=== PATIENT | female | born 1950 | race Caucasian/White ===

== ENCOUNTER 2016-07-31 05:31 | Day surgery (SDC) | payer MEDICAID, MEDICARE ==
[~2016-07-31] VITALS: Ht 147.3 cm; Wt 76.7 kg
[~2016-07-31 05:31] MED LIST: ACET-171 PO; AMIT10TA6 PO; ASCO100089 PO; ASCO500C6 PO; BIMA2.5D5 AFFECT_EYE; CAL1TABL2 PO; CALC-243 PO; CHOL100045 PO; CYCL1DRO AFFECT_EYE; DIPH25CA6 PO; DOCU-41 PO; ESTR42.52 VAGINAL; FENT1PAT11 TRANSDERM; FLAX100038 PO; FLUC150T48 PO; FLUO60TA PO; FLUT16SP NS; GLUC-91 PO; GUAI400T57 PO; LACT1CAP65 PO; LANS30CA PO; LOTE5DRO3 AFFECT_EYE; MULT-1018 PO; NAPR220C11 PO; NYST1000 PO; NYST60PO TP; OMEG1CAP25 PO; ONDA4TAB6 PO; OXYC5TAB72 PO; PARS1TAB3 PO; REFRESH OPTIVE OU; TIMO5DRO5 AFFECT_EYE; TIZA4CAP8 PO; Vitamin B12 SL; [UNRECOGNIZED DRUG - OTHER] PO
[2016-07-31] MEDS ORDERED: fentaNYL-PF 50 mCg/mL 2 mL Inj ONE (05:32)
[2016-07-31] MEDS ORDERED: Ondansetron 2 mg/mL 2 mL Inj ONE (05:32)
[2016-07-31] MEDS ORDERED: Propofol 10,000 mCg/mL 20 mL Inj ONE (05:32)
[2016-07-31 05:51] VITALS: BP 141/73; PULSE 83; RESP 14; O2SAT 97
[2016-07-31] MEDS: Lactated Ringer's 1,000 ML IV SCH ×2 (05:51→07:28)
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
[2016-07-31] MEDS ORDERED: Lactated Ringer's 500 ML IV PRN (07:44)
[2016-07-31] MEDS ORDERED: Lactated Ringer's 1,000 ML IV SCH (07:44)
[2016-07-31] MEDS ORDERED: Atropine 0.4 mg/mL Inj IVPUSH PRN (07:45)
[2016-07-31] MEDS ORDERED: EPHEDrine Sulfate 50 mg/mL Inj IVPUSH PRN (07:45)
[2016-07-31] MEDS ORDERED: Phenylephrine 10,000 mCg/mL Inj IVPUSH PRN (07:45)
[2016-07-31] MEDS ORDERED: Ondansetron 2 mg/mL 2 mL Inj IVPUSH PRN (07:45)
[2016-07-31] MEDS ORDERED: Dexamethasone 4 mg/mL Inj IVPUSH PRN (07:45)
[2016-07-31] MEDS ORDERED: HYDROmorphone 1 mg/mL Inj IVPUSH PRN (07:45)
[2016-07-31] MEDS ORDERED: fentaNYL-PF 50 mCg/mL 2 mL Inj IVPUSH PRN (07:45)
[2016-07-31] MEDS ORDERED: hydrALAZINE 20 mg/mL Inj IVPUSH PRN (07:45)
[2016-07-31] MEDS ORDERED: Bupivacaine-MPF 0.25% 30 mL Inj INFILTRATE ONE (07:52)
[2016-07-31] MEDS ORDERED: oxyCODONE-Acetamin 5-325 mg Tablet PO PRN (08:30)
[2016-07-31] MEDS ORDERED: oxyCODONE-Acetamin 5-325 mg Tablet PO ONE (08:31)
--- NOTE | 2016-07-31 08:39 | PCM.ANEP1 ---
Post Anesthesia Phase 1 PACU Phase 1 Assessment Vital Signs Vital Signs Date Time Temp Pulse Resp B/P Pulse Ox O2 Delivery O2 Flow Rate FiO2 07/31/16 05:51 36.6 83 14 141/73 97 Room Air Anesthetic Administered: MAC, Regional Block Level of Alertness: Awake, talking LAIRD's with Equal Strength: Yes Pain: No Nausea or Vomiting: No Oxygen Delivery: Room Air Lungs: Normal Air Movement Kip Cano MD Jul 31, 2016 08:39
[2016-07-31 09:09] VITALS: BP 112/61; PULSE 100; RESP 16; O2SAT 95
--- NOTE | 2016-07-31 12:16 | PCM.ANEP2 ---
Post Anesthesia Evaluation ASA/CMS Post Anesthesia VS in Patient's Normal Range?: Yes Resp Stable; Airway Patent?: Yes CV Function & Hydration Stable: Yes Mental Status Recovered?: Yes Pain control Satisfactory?: Yes N/V Control Satisfactory?: Yes Kip Cano MD Jul 31, 2016 12:16
--- NOTE | 2016-08-02 00:06 | OP ---
[address] [address] OPERATIVE REPORT PATIENT: RICK VAZQUEZ : 1950 MR#: [id number] ADMIT: 07/31/2016 JOB ID: [id number] DATE OF SURGERY: 07/31/2016 PREOPERATIVE DIAGNOSIS(ES): 1. Right middle recurrent trigger finger. 2. Right middle finger flexor ganglion cyst. POSTOPERATIVE DIAGNOSIS(ES): 1. Right middle recurrent trigger finger. 2. Right middle finger flexor ganglion cyst. PROCEDURE: 1. Revision, right middle trigger release. 2. Excision of right middle finger flexor ganglion cyst. SURGEON: Julio Pizarro MD SEASONAL RECRUITER: None. ANESTHESIA: Via block with sedation. COMPLICATIONS: None apparent. ESTIMATED BLOOD LOSS: Minimal. SPECIMEN: Right middle finger ganglion cyst to Pathology. INDICATIONS FOR PROCEDURE: This is a 66-year-old, female patient with a remote history of right middle trigger finger and ring finger trigger finger status post trigger release. The patient has had a 2-3 month history of right middle finger pain and clicking. Ultrasound of the area demonstrated a ganglion cyst as well. At this point, a right middle revision trigger release with a ganglion cyst excision is indicated. PROCEDURES AND FINDINGS: The patient was identified in the preoperative area. Surgical site was marked. The patient was then taken back to the operating room and placed supine on the operating table. Appropriate time-outs were taken. A Laura block was then carried out by Anesthesia without any difficulty. The patient was then prepped and draped in the usual sterile manner. Her previous trigger release incision was then opened. I opened approximately two-thirds of the incision over the middle finger and part of the third web space. This was done with a 15-blade just through the skin. I then performed blunt dissection with a pair of tenotomy scissors to deepen the incision down to the flexor apparatus. The soft tissue was then retracted ulnarly and radially out of the way. It was noted that patient has circumferential scarring in this area around the flexor tendon. Examination proximally reveals a cystic structure above the scar. At this point, I used a #15 blade and incised a portion of the scar down to the underlying flexor apparatus. Using this incision, I was able was able to follow the flexor tendon and open up the scar tissue superficial to the tendon from a distal to proximal manner. At the area of the ganglion cyst, incision was carried around the ganglion cyst allowing the cyst to be passed off to Pathology as a specimen. I opened up the scar tissue into the mid palm. I then turned my attention distally. Again, the scar tissue was opened into the proximal third of the proximal phalanx. Hemostasis was obtained with electrocautery after tourniquet had been released. At this point, I asked the patient to flex her fingers, and patient reports smooth tendon gliding without any clicking. The incision was then reapproximated using several 4-0 nylon horizontal mattress sutures. The patient tolerated the procedure well. Needle count, sponge count, and instrument counts were correct at the end of the procedure. The patient was transported to recovery in stable condition. QUAN
--- NOTE | 2016-08-02 16:30 | PATH ---
SURGICAL PATHOLOGY Attending Physician:Julio Pizarro CASE STATUS: Signed Out PATIENT NAME: RICK VAZQUEZ PID: [id number] : 1950 DATE COLLECTED:07/31/2016 15:22 SPECIMEN: Ganglion Cyst CLINICAL HISTORY: 1. RIGHT MIDDLE FINGER GANGLION FINAL DIAGNOSIS: 1.RIGHT MIDDLE FINGER GANGLION: GANGLION CYST. ICD10 CODE M67.4 GROSS DESCRIPTION: The specimen is received in formalin, labeled with the patient's name, sublabeled as right middle finger ganglion is and consists of a fragment of erickson-white semitranslucent fibrous tissue (1.0 x 0.5 x 0.4 cm). Section code: (A) tissue, bisected. Specimen entirely submitted. 07/31/16 JM MICRO DESCRIPTION: See diagnosis. ICD-9 CODES: CPT CODES: 1: 10180 Electronically Signed Out Becki Spence MD [facility] [address], [place] [address] Technical component performed at [facility], [facility] [address], [place], [address]
== END 2016-07-31 23:59 | disposition home or self-care (01) ==
LOC: SAS 05:31
PROVIDERS: ATTEND Plastic Surgery
DX: M65.331 Trigger finger, right middle finger (principal); M67.441 Ganglion, right hand; R13.10 Dysphagia, unspecified; I10 Essential (primary) hypertension; J45.909 Unspecified asthma, uncomplicated; R51 Headache; K21.9 Gastro-esophageal reflux disease without esophagitis; R12 Heartburn; K44.9 Diaphragmatic hernia without obstruction or gangrene; M79.7 Fibromyalgia; Z98.84 Bariatric surgery status; Z79.82 Long term (current) use of aspirin; Z79.899 Other long term (current) drug therapy

== ENCOUNTER 2016-08-23 05:47 | Emergency (ER) | payer MEDICAID, MEDICARE ==
[2016-08-23 05:51] VITALS: BP 146/84; PULSE 99; RESP 20; O2SAT 99
--- NOTE | 2016-08-23 06:15 | ED.REPORT ---
HPI-Chest Pain 40 and Over Date of Service August 23, 2016 ED Provider: Edmundo Manning MD A 66 year old female with a medical history including hypertension, GERD, fibromyalgia, mild IBS, and nephrolithiasis presents to the ED reporting left flank pain onset 0530 this morning, waking her up. Associated symptoms include left-sided abdominal pain, nausea, and chills. The patient denies fever, vomiting, or other symptoms. She saw her PCP yesterday and was placed on Nitrofurantoin for a UTI. Several months ago the patient was diagnosed with right-sided kidney stones, which she has been passing intermittently. Her last meal was 2200 last night. Nursing Notes Stated Complaint: ABDOMINAL PAIN Chief Complaint: Female Abdominal Pain Nursing Notes Reviewed: Yes Allergies: Coded Allergies: TAPE (Verified Allergy, Severe, blisters (PAPER TAPE OK), 07/25/16) cisapride (Verified Allergy, Severe, SEVERE DIARRHEA, 07/25/16) Macrolide Antibiotics (Verified Allergy, Unknown, UNKNOWN, 07/25/16) brimonidine (Unverified Allergy, Unknown, 07/30/16) ENTERED FROM UNCODED ALLERGIES chlorhexidine (Unverified Allergy, Unknown, 07/30/16) ENTERED FROM UNCODED ALLERGIES meperidine (Verified Allergy, Unknown, UNKNOWN, 07/25/16) miconazole (Unverified Allergy, Unknown, 07/30/16) ENTERED FROM UNCODED ALLERGIES polymyxin B (Verified Allergy, Unknown, UNKNOWN, 07/25/16) prochlorperazine (Verified Allergy, Unknown, UNKNOWN (PHENOTHIAZINES) , 07/25/16) erythromycin ethylsuccinate (Verified Adverse Reaction, Severe, cramping diarrhea, 07/25/16) gabapentin (Verified Adverse Reaction, Severe, ANXIETY/DEPRESSION, 07/25/16) metoclopramide (Verified Adverse Reaction, Severe, SEVERE TWITCHING, ) pregabalin (Verified Adverse Reaction, Severe, PERIPHERAL EDEMA, 07/25/16) propranolol (Verified Adverse Reaction, Severe, DIARRHEA, 07/25/16) Uncoded Allergies: CHLOROPREP (Allergy, Severe, RED WELTS, 07/26/13) bee stings (Allergy, Unknown, UNKNOWN, 07/26/13) MICONAZOLE (Adverse Reaction, Severe, SWELLING/TOPICAL RASH, 07/26/13) BROMINDIONE (Adverse Reaction, Unknown, FOUND IN COMBIGAN EYE GTTS- REACTION UNKNOWN, 07/26/13) Scheduled ([Refresh Optive]) 0.01 OZ OU 2-6X DAILY ([Vitamin B12]) 5,000 MG SL DAILY ([Green Source Vit/Min]) 1 TAB PO DAILY Amitriptyline (Amitriptyline) 10 Mg Tablet 30 MG PO HS Ascorbic Acid (Vitamin C) 500 Mg Capsule.er 500 MG PO DAILY W/ LEI HIPS Ascorbic Acid (Vitamin C) 1,000 Mg Tab.chew 1,000 MG PO BID W/ BIOFLAVONOIDS Bimatoprost (Lumigan) 45 Drop/2.5 Ml Ophsoln 1 DROP AFFECT_EYE HS [place] Cit/Mag/D3/Zn/Deputy Clerk/Sunil/Bor (Citracal-Vit D + Magnesium Tab) 1 Each Tablet 6 EACH PO DAILY Calcium Carbonate/Vitamin D3 (Calcium 600 + Vit D Tablet) 1 Each Tablet 1 EACH PO DAILY Cholecalciferol (Vitamin D3) (Vitamin D) 1,000 Unit Capsule 5,000 UNIT PO DAILY 5000IU DAILY IN WINTER; 2000IU DAILY IN SUMMER Ciprofloxacin (Ciprofloxacin) 500 Mg Tablet 500 MG PO BID Cyclosporine (Restasis) 1 Each Droperette 1 EACH AFFECT_EYE BID O.O5% Estradiol (Estrace) 42.5 Gm Cream.appl 1 G VAGINAL 2X/WEEK Fentanyl 100 mcg/hr Patch (Fentanyl 100 mcg/hr Patch) 1 Each Patch.td72 1 PATCH TRANSDERM 48H 37.5MCG/H Flaxseed Oil ([place]-3 Flaxseed Oil) 1,000 Mg Capsule 2,000 MG PO DAILY Fluconazole (Diflucan) 150 Mg Tablet 150 MG PO ONCE Fluoxetine (Fluoxetine) 60 Mg Tablet 60 MG PO DAILY Fluticasone Propionate (Fluticasone Propionate Nasal) 16 Gm Dinuba.susp 2 SPRAY NS QAM Gluc/Pablo-MSM#1/Vit C/Sunil/Bor (Rjajxpc-Lmcsb-ALP Complex Cplt) 1 Each Tablet 2 EACH PO DAILY Guaifenesin (Guaifenesin) 400 Mg Tablet 400 MG PO Q 4HRS PRN Lactobacillus Acidophilus (Probiotic) 1 Each Capsule 2 EACH PO DAILY Lansoprazole (Lansoprazole) 30 Mg Capsule.dr 30 MG PO BID Multivitamin (Multi Vitamin Daily) 1 Each Tablet 1 EACH PO DAILY Naproxen Sodium (Aleve) 220 Mg Capsule 220 MG PO BID Nystatin (Nystop) 60 Gm Powder 60 GM TP PRN [place]-3 Fatty Acids/Fish Oil ([place] 3 Fish Oil Softgel) 1 Each Capsule.dr 1 EACH PO DAILY Parsley/Garlic (Garlic & Parsley Tablet) 1 Each Tablet 1 EACH PO BID Tamsulosin (Flomax) 0.4 Mg Capsule 0.4 MG PO DAILY Timolol Maleate (Timolol Maleate) 5 Ml Drops 1 DROP AFFECT_EYE DAILY Tizanidine (Tizanidine) 4 Mg Capsule 1-8 MG PO HS Scheduled PRN Acetaminophen (Acetaminophen) 500 Mg Tablet 1,000 MG PO Q6H PRN PRN For Pain Docusate Sodium (Colace) 100 Mg Capsule 100-200 MG PO BID PRN PRN For Constipation Loteprednol Etabonate (Lotemax) 5 Ml Drops.susp 1 GTT AFFECT_EYE BID PRN PRN POSTOP Nystatin (Nystatin) 100,000 Unit/1 Ml Oral.susp 100,000 UNIT PO PRN PRN PRN YEAST Ondansetron (Zofran) 4 Mg Tablet 4-8 MG PO Q8H PRN PRN For Nausea diphenhydrAMINE HCl (Benadryl) 25 Mg Capsule 25-50 MG PO Q4 PRN PRN For Itching oxyCODONE (oxyCODONE) 5 Mg Tablet 5-10 MG PO Q4H PRN PRN For Pain General Time Seen by MD: 06:09 Chief Complaint Other (Left Flank Pain) Hx Obtained From: Patient Arrived By: Walk-in Sudden in Onset?: Yes Onset Occurred: 1 - 4 hours ago Symptom Duration: Since onset Location: : Back (Left Flank) Quality: Painful Severity: Current: Moderate Severity: Maximum: Moderate Pertinent Negative: Relieved by nothing Context Related History: Reports: GERD, Hypertension Recent Healthcare: Recent doctor visit Similar Sx Previous: Yes Past Medical History Past Medical History Cataracts s/p bilateral extraction and macular "hole" repair Glaucoma s/p corneal transplant Hypertension Asthma TIA GERD Hiatal Hernia s/p Leif fundoplication Mild IBS Nephrolithiasis s/p lithotripsy UTI Fibromyalgia Anxiety Depression Reports: Asthma, Hypertension Reports: Depression Past Surgical History Cervical fusion Fissures Appendectomy Gastric bypass surgery Right middle trigger release Excision of right middle finger flexor ganglion cyst Nasal surgery Tonsillectomy Cholecystectomy Leif fundoplication Bilateral cataract extraction and macular "hole" repair Corneal transplant Smoking History Never Smoker Social History Other Social History: Good social support Ambulatory Status Walker Review of Systems Constitutional: Reports: Chills, Denies: Fever Respiratory: Denies: Non-productive cough, Shortness of breath GI: Reports: Abdominal pain (Left-sided), Nausea, Denies: Diarrhea, Vomiting Complete sys rev & neg: except as marked. Female: Reports: Flank pain (Left) Physical Exam Initial Vital Signs Vital Signs (First) Date Time Temp Pulse Resp B/P Pulse Ox O2 Delivery O2 Flow Rate FiO2 08/23/16 05:51 36.8 99 20 146/84 99 Room Air Initial VS: Reviewed Head / Eyes: Atraumatic, Normocephalic ENT: Conjunctiva normal, No scleral icterus Skin: Warm, Dry, No cyanosis Neurologic: Alert, Oriented, Nonfocal Psychiatric: Mood/affect normal, Behavior normal, Normal thought content General/Constitutional: Awake, Alert Respiratory / Chest: Breath sounds NL, Breath sounds = bilat, No respiratory distress Cardiovascular: Heart rate NL, Regular rhythm, Heart sounds NL, No murmurs Abdomen: Soft Tenderness/Guarding/Rebound: Positive: Tender LLQ..., Tender LUQ... Back: Full range of motion Flank / Spine / Paraspinal: Positive: Flank tender L Interpretation & Diagnostics URINE DIPSTICK: 1.015 sp gravity 5 pH Trace Leukocyte Esterase Trace Protein Normal Glucose Normal Urobilinogen ~ 250 Quinten/ml Occult Blood Otherwise Negative CT KUB: IMPRESSION: 1. Bilateral nephrolithiasis. Mildly obstructing 6 mm calculus at the left ureteropelvic junction. 2. Status post remote gastric bypass surgery, cholecystectomy and hysterectomy. 3. Hepatic cystic changes again noted. Dictated by: Walt Monique M.D. on 08/23/2016 at 9:09 Lab Results Interpretation Result Diagram: 08/23/16 0607 08/23/16 0607 Test 08/23/16 06:07 08/23/16 06:33 White Blood Count 5.4th/mm3 (3.8-10.1) Red Blood Count 4.29mil/mm3 (3.90-5.20) Hemoglobin 12.5g/dL (12.0-15.6) Hematocrit 38.5% (35.0-46.0) Mean Corpuscular Volume 89.7fL (81-100) Mean Corpuscular Hemoglobin 29.1pg (27.0-35.0) Mean Corpuscular Hemoglobin Concent 32.5% (32.0-37.0) Red Cell Distribution Width 13.6% (12.3-15.4) Platelet Count 326bil/L (150-400) Neutrophils (%) (Auto) 45.1% (40-74) Lymphocytes (%) (Auto) 34.6% (14-46) Monocytes (%) (Auto) 9.5% (4-12) Eosinophils (%) (Auto) 9.5% (0-5) Basophils (%) (Auto) 1.1% (0-3) Sodium Level 140mEq/L (134-144) Potassium Level 3.9mEq/L (3.5-5.2) Chloride Level 102mEq/L (97-108) Carbon Dioxide Level 26mmol/L (18-29) Blood Urea Nitrogen 26mg/dL (8-27) Creatinine 0.58mg/dL (0.57-1.00) Estimat Glomerular Filtration Rate 149mL/min (>59) Glucose Level 102mg/dL (60-99) Lactic Acid Level 1.4mmol/L (0.4-2.0) Calcium Level 9.1mg/dL (8.5-10.1) Magnesium Level 2.4mg/dL (1.6-2.6) Total Bilirubin 0.2mg/dL (0.0-1.2) Aspartate Amino Transf (AST/SGOT) 41U/L (0-50) Alanine Aminotransferase (ALT/SGPT) 38U/L (0-32) Alkaline Phosphatase 99U/L (25-165) Total Protein 7.5g/dL (6.4-8.4) Albumin 4.3g/dL (3.4-5.0) Lipase 23U/L (13-60) Urine Color Yellow (YELLOW) Urine Appearance Slightly cloudy Urine pH 6.0 (5.0-8.0) Urine Specific [place] 1.019 (1.003-1.035) Urine Protein Negativemg/dL (NEG,TRACE) Urine Glucose (UA) Negativemg/dL (NEGATIVE) Urine Ketones Negativemg/dL (NEGATIVE) Urine Occult Blood Moderate (NEGATIVE) Urine Nitrite Negative (NEGATIVE) Urine Bilirubin Negative (NEGATIVE) Urine Urobilinogen Normalmg/dL (NORMAL) Urine Leukocyte Esterase Trace (NEGATIVE) Urine RBC 11-50/hpf (0-2) Urine WBC 6-10/hpf (0-5) Urine Epithelial Cells Few/hpf (NONE-MOD) Urine Crystals None seen (NONE SEEN) Urine Bacteria Few/hpf (NONE-FEW) Urine Hyaline Casts None/lpf (NONE) Urine Granular Casts None seen (NONE SEEN) Urine Waxy Casts None seen (NONE SEEN) Urine Red Blood Cell Casts None seen (NONE SEEN) Urine White Blood Cell Casts None seen (NONE SEEN) Urine Mucus Present (None Seen) Urine Trichomonas None seen (NONE SEEN) Urine Yeast None (NONE SEEN) Urinalysis Comment Transitional epi Urine Culture Reflexed Indicated Re-Eval/Medical Decision Med Decision/Clinical Course 66-year-old female history kidney stones presenting with left flank pain. She was recently started on Macrobid by her primary doctor. CT shows 6 mm mildly obstructing stone left UPJ. Urine suggests UTI. Pain was controlled. I discussed with urology as above recommends discharge home with ciprofloxacin 14 days and follow-up with urology next week. Return precautions if any new or worsening abdominal pain, nausea vomiting, fevers chills, any other new or worsening symptoms. Source of Hx: Old records Time of Eval: 10:39 Patient Status: Condition improved Re-Evaluation/Progress Note: Discussed with patient CT and lab results, diagnosis, and plan for discharge. Follow-up and return to the ER instructions given. Patient agrees with plan for care and all questions were addressed. Consultation : Referral / Consult Name: Bhavin Sanabria MD Consulted With: Urology Call Returned at: 10:19 Night Warehouse Selector: Agrees with eval, Agrees with plan Note: Recommends discharge on Cipro with close outpatient follow-up. Counseled Regarding: Diagnosis, Lab results, Need for follow-up, When/why to return to ED Discharge & Departure Primary Impression: UTI (urinary tract infection) Urinary tract infection type: acute cystitis Hematuria presence: without hematuria Qualified Code: N30.00 - Acute cystitis without hematuria Additional Impression: Nephrolithiasis Disposition: Home Discharge Condition All VS Reviewed: Yes Condition: Improved Patient Instructions: Kidney Stones (GEN), Urinary Tract Infection in Women ( GEN) Additional Instructions: Thank you for entrusting us with your care. Take the Cipro as prescribed, starting tomorrow. Also take Flomax as prescribed. Call your primary care provider on Friday for a follow-up appointment. Also call your urologist today for a follow-up appointment next week. Return to the ER with any new or worsening symptoms including worsening pain, fevers, nausea, and vomiting. Referrals: Kei Mcfarlane MD (PCP) Bhavin Sanabria MD Attestation Portions of this note were transcribed by Melissa Goncalves. I, Dr. Manning, personally performed the history, physical exam, and medical decision-making; I reviewed and confirmed the accuracy of the information in the transcribed note. Signed by: Diego Abreu, 08/23/2016, 11:55 copies to: Kei Mcfarlane MD; Mae Hyatt MD; Bhavin Sanabria MD, Ben M MD August 23, 2016 06:15 EMLISSA GONCALVES August 23, 2016 06:50
[2016-08-23] MEDS ORDERED: Ondansetron 2 mg/mL 2 mL Inj ONE (06:16)
[2016-08-23 06:19] LABS: BASOPHILS % (AUTO) 1.1 % (0-3); EOSINOPHILS % (AUTO) 9.5 % (0-5); MONOCYTES % (AUTO) 9.5 % (4-12); Mean Corpuscular Hemoglobin 29.1 pg (27.0-35.0); Mean Corpuscular Volume 89.7 fL (81-100); NEUTROPHILS % (AUTO) 45.1 % (40-74); Platelet Count 326 bil/L (150-400)
[2016-08-23 06:39] LABS: Magnesium 2.4 mg/dL (1.6-2.6)
[2016-08-23] MEDS ORDERED: 0.9% Sodium Chloride 1,000 ML IV ONE (06:50)
[2016-08-23 07:00] LABS: APPEARANCE,URINE SLIGHTLY CLOUDY (CLEAR,HAZY); COLOR,URINE YELLOW (YELLOW); OCCULT BLOOD,URINE MODERATE (NEGATIVE); UROBILINOGEN,URINE NORMAL (NORMAL)
[2016-08-23] MEDS: HYDROmorphone 0.5 mg/0.5 mL iSecure Syringe IVPUSH PRN ×4 (07:03→09:25)
[2016-08-23] MEDS ORDERED: cefTRIAXone Inj 1,000 MG in Dextrose 5% Minibag Plus 50 ML IV ONE (08:05)
--- NOTE | 2016-08-23 09:22 | DRSVH ---
PROCEDURE: CT KUB ([id number]) INDICATIONS: L flank pain, LLQ pain TECHNIQUE: Noncontrast 5 mm thick sections acquired from the diaphragms to the symphysis. 5 mm thick coronal an d sagittal reformats were then performed. For radiation dose reduction, the following was used: aut omated exposure control, adjustment of mA and/or kV according to patient size. COMPARISON: CT abdomen and pelvis 06/17/2016 FINDINGS: Preliminary report by software support representative radiology Image quality: Excellent. Lung bases: Lung bases are clear. Heart size is normal. Urinary system: Both kidneys are normal in size. Punctate calcification in the lower pole of the rig ht kidney is unchanged. A punctate calcification is present in the upper pole of the left kidney, rosibel ge 24. Slightly larger calcifications are present in the left lower pole collecting system and there is a 6 mm calculus in the left ureteropelvic junction, image 33, attenuation 647. There is mild left hydronephrosis without perinephric fat stranding. Both ureters appear non-dilated throughout their e xpected courses. Bladder wall thickness is normal; no calcified bladder stones. Other solid organs: Liver and spleen are normal in size. Scattered hepatic cysts and dilated intrahe patic and extrahepatic bile ducts again noted. Gallbladder is surgically absent. Pancreas is normal in contours. No adrenal nodules. Peritoneum and bowel: Postoperative changes of partial gastrectomy and bypass surgery Unenhanced bow el loops demonstrate normal wall thickness and caliber. No free fluid or air. Nodes and vessels: No retroperitoneal or mesenteric adenopathy by size criteria. Aorta and inferior vena cava are normal in caliber. Abdominal wall: No ventral hernias. Pelvis: No free pelvic fluid. No inguinal hernias or adenopathy. Uterus is surgically absent. Ovari es are nonvisualized. Bones: No suspicious bony lesions. No vertebral body compression fractures. IMPRESSION: 1. Bilateral nephrolithiasis. Mildly obstructing 6 mm calculus at the left ureteropelvic junction. 2. Status post remote gastric bypass surgery, cholecystectomy and hysterectomy. 3. Hepatic cystic changes again noted. Dictated by: Walt Monique M.D. on 08/23/2016 at 9:09 Approved by: Walt Monique M.D. on 08/23/2016 at 9:20
[2016-08-23 09:30] VITALS: BP 148/73; PULSE 92; RESP 17; O2SAT 92
[2016-08-23] MEDS ORDERED: CIPR-198 PO (10:32)
[2016-08-23] MEDS ORDERED: TAMS0.4C98 PO (10:49)
[2016-08-23 11:17] VITALS: BP 131/70; PULSE 90; RESP 15; O2SAT 95
[2016-08-23 11:18] VITALS: BP 131/70; PULSE 90; RESP 15; O2SAT 95
== END 2016-08-23 11:20 | disposition home or self-care (01) ==
LOC: SED 05:47
DX: N30.00 Acute cystitis without hematuria (principal); N20.0 Calculus of kidney; I10 Essential (primary) hypertension; J45.909 Unspecified asthma, uncomplicated; K21.9 Gastro-esophageal reflux disease without esophagitis; Z88.8 Allergy status to other drugs, medicaments and biological substances; Z86.73 Personal history of transient ischemic attack (TIA), and cerebral infarction without residual deficits
CPT/HCPCS: 36415; 74176; 80053; 81000; 83605; 83690; 83735; 85025; 87086; 96361; 96374; 96375; 99285; J0696; J1170; J1885; J2405; J7030

== ENCOUNTER 2016-11-08 17:39 | Inpatient (IN) | payer MEDICARE, MEDICAID ==
[~2016-11-08] VITALS: Ht 147.3 cm; Wt 77.5 kg
[~2016-11-08 17:39] MED LIST changes: -BIMA2.5D5 AFFECT_EYE; +BIMA2.5D5 RIGHT_EYE; +CIPR-198 PO; -CYCL1DRO AFFECT_EYE; +CYCL1DRO BOTH_EYES; -LOTE5DRO3 AFFECT_EYE; +LOTE5DRO3 RIGHT_EYE; +TAMS0.4C98 PO; -TIMO5DRO5 AFFECT_EYE; +TIMO5DRO5 RIGHT_EYE
[2016-11-08 17:52] VITALS: BP 128/70; PULSE 85; RESP 18; O2SAT 95
[2016-11-08] MEDS ORDERED: 0.9% Sodium Chloride 1,000 ML IV ONE ×2 (17:56→20:19)
--- NOTE | 2016-11-08 17:56 | ED.REPORT ---
HPI-General Illness Date of Service Nov 08, 2016 ED Provider: Dr. Humble Sim MD A 66 year old female with a history of hypertension, GERD, fibromyalgia, mild IBS, and previous nephrolithiasis requiring surgery presents to the ED complaining of lower, "grabbing" abdominal pain that began at 1030 this morning. The pain radiates from her left flank to the lower section of her abdomen into her groin. Associated symptoms include recent urinary retention, hematuria, dizziness, near- syncope and nausea. Her current pain feels similar to her previous kidney stones. She rates her current pain as an 8/10 and she rates her worst pain as a 10/10. The pain is exacerbated by sitting up. Patient was seen in the ED on 08/2016 for a UTI with similar symptoms. Patient took Tylenol and Pyridium with no relief. She denies any recent weight loss, fever, chills, headache, vomiting, chest pain, SOB, unilateral numbness/weakness, or hematochezia. Nursing Notes Stated Complaint: POSS UTI Chief Complaint: Female Abdominal Pain Nursing Notes Reviewed: Yes Allergies: Coded Allergies: TAPE (Verified Allergy, Severe, blisters (PAPER TAPE OK), 11/08/16) cisapride (Verified Allergy, Severe, SEVERE DIARRHEA, 11/08/16) Macrolide Antibiotics (Verified Allergy, Unknown, UNKNOWN, 11/08/16) brimonidine (Unverified Allergy, Unknown, 11/08/16) ENTERED FROM UNCODED ALLERGIES chlorhexidine (Unverified Allergy, Unknown, 11/08/16) ENTERED FROM UNCODED ALLERGIES meperidine (Verified Allergy, Unknown, UNKNOWN, 11/08/16) miconazole (Unverified Allergy, Unknown, 11/08/16) ENTERED FROM UNCODED ALLERGIES polymyxin B (Verified Allergy, Unknown, UNKNOWN, 11/08/16) prochlorperazine (Verified Allergy, Unknown, UNKNOWN (PHENOTHIAZINES) , 11/08/16) erythromycin ethylsuccinate (Verified Adverse Reaction, Severe, cramping diarrhea, 11/08/16) gabapentin (Verified Adverse Reaction, Severe, ANXIETY/DEPRESSION, 11/08/16 ) metoclopramide (Verified Adverse Reaction, Severe, SEVERE TWITCHING, ) pregabalin (Verified Adverse Reaction, Severe, PERIPHERAL EDEMA, 11/08/16) propranolol (Verified Adverse Reaction, Severe, DIARRHEA, 11/08/16) Uncoded Allergies: CHLOROPREP (Allergy, Severe, RED WELTS, 07/26/13) bee stings (Allergy, Unknown, UNKNOWN, 07/26/13) MICONAZOLE (Adverse Reaction, Severe, SWELLING/TOPICAL RASH, 07/26/13) BROMINDIONE (Adverse Reaction, Unknown, FOUND IN COMBIGAN EYE GTTS- REACTION UNKNOWN, 07/26/13) Scheduled Amitriptyline (Amitriptyline) 10 Mg Tablet 30 MG PO HS Aspirin (Aspirin) 325 Mg Tablet 325 MG PO HS Bimatoprost (Lumigan) 45 Drop/2.5 Ml Ophsoln 1 DROP RIGHT_EYE HS [place] Cit/Mag/D3/Zn/[employer]air Builder/Sunil/Bor (Citracal-Vit D + Magnesium Tab) 1 Each Tablet 1 EACH PO BID Cholecalciferol (Vitamin D3) (Vitamin D) 1,000 Unit Capsule 5,000 UNIT PO DAILY 5000IU DAILY IN WINTER; 2000IU DAILY IN SUMMER Cyanocobalamin/Cobamamide (Vitamin B-12 5,000 Mcg Tab Sl) 5,000 Mcg-100 Mcg Tab.subl 1 EACH SL DAILY Cyclosporine (Restasis) 1 Each Droperette 1 DROP BOTH_EYES BID O.O5% Docusate Sodium (Colace) 100 Mg Capsule 100-200 MG PO BID Fentanyl 100 mcg/hr Patch (Fentanyl 100 mcg/hr Patch) 1 Each Patch.td72 1 PATCH TRANSDERM 48H 37.5MCG/H Flaxseed Oil ([place]-3 Flaxseed Oil) 1,000 Mg Capsule 1,000 MG PO BID Fluoxetine (Fluoxetine) 60 Mg Tablet 60 MG PO DAILY Fluticasone Propionate (Fluticasone Propionate Nasal) 16 Gm [place].susp 2 SPRAY NS QAM Gluc/Pablo-MSM#1/Vit C/Sunil/Bor (Salfdhc-Ngrdu-KLJ Complex Cplt) 1 Each Tablet 1 EACH PO BID Lactobacillus Acidophilus (Probiotic) 1 Each Capsule 1 EACH PO DAILY Lansoprazole (Lansoprazole) 30 Mg Capsule. 30 MG PO BID Multivitamin (Multi Vitamin Daily) 1 Each Tablet 1 EACH PO DAILY Naproxen Sodium (Aleve) 220 Mg Capsule 220 MG PO BID [place]-3 Fatty Acids/Fish Oil ([place] 3 Fish Oil Softgel) 1 Each Capsule.dr 1 EACH PO DAILY Parsley/Garlic (Garlic & Parsley Tablet) 1 Each Tablet 1 EACH PO BID Polyvinyl Alcohol/Povidone/Pf (Refresh Classic Eye Drops) 1 Each Droperette 1 EACH BOTH_EYES BID Timolol Maleate (Timolol Maleate) 5 Ml Drops 1 DROP RIGHT_EYE QAM Tizanidine (Tizanidine) 4 Mg Capsule 4-8 MG PO HS Scheduled PRN Acetaminophen (Acetaminophen) 500 Mg Tablet 1,000 MG PO Q6H PRN PRN For Pain Guaifenesin (Guaifenesin) 400 Mg Tablet 400 MG PO Q4H PRN PRN For Cough Loteprednol Etabonate (Lotemax) 5 Ml Drops.susp 1 GTT RIGHT_EYE BID PRN PRN POSTOP Ondansetron (Zofran) 4 Mg Tablet 4-8 MG PO Q8H PRN PRN For Nausea diphenhydrAMINE HCl (Benadryl) 25 Mg Capsule 25-50 MG PO Q4 PRN PRN For Itching oxyCODONE (oxyCODONE) 5 Mg Tablet 5-10 MG PO Q4H PRN PRN For Pain General Time Seen by MD: 17:55 Chief Complaint Abdominal pain (Lower) Hx Obtained From: Patient Arrived By: Walk-in Sudden in Onset?: No Onset Occurred: 9 - 12 hours ago Symptom Duration: Since onset Location: : Abdomen Quality: Burning, Painful Radiation: : Abdomen Severity: Current: Pain level 8 out of 10 Severity: Maximum: Pain level 10 out of 10 Associated with: Reports: Abdominal pain, Nausea Pertinent Negative: Pt denies other symptoms Recent Healthcare: No recent hospitalization, Recent doctor visit Past Medical History Past Medical History Cataracts s/p bilateral extraction and macular "hole" repair Glaucoma s/p corneal transplant Hypertension Asthma TIA GERD Hiatal Hernia s/p Leif fundoplication Mild IBS Nephrolithiasis s/p lithotripsy UTI Fibromyalgia Anxiety Depression Reports: Asthma, Hypertension Reports: Depression Past Surgical History Cervical fusion Fissures Appendectomy Gastric bypass surgery Right middle trigger release Excision of right middle finger flexor ganglion cyst Nasal surgery Tonsillectomy Cholecystectomy Leif fundoplication Bilateral cataract extraction and macular "hole" repair Corneal transplant Family History Reports: Cancer (Pancreatic) Smoking History Never Smoker Social History Other Social History: Good social support Ambulatory Status Walker Review of Systems Full Review of Systems Constitutional: Denies: Chills, Fever, Recent wt loss Respiratory: Denies: Shortness of breath Cardiovascular: Denies: Chest pain GI: Reports: Abdominal pain, Nausea, Denies: Hematochezia Female: Reports: Flank pain (Left), Hematuria, Urination decreased Neurologic: Denies: Headache, Numbness, Syncope, Weakness Complete sys rev & neg: except as marked. Physical Exam Nursing note and vitals reviewed. Constitutional: Well-developed, well-nourished. Not diaphoretic. Head: Normocephalic and atraumatic. Mouth/Throat: Oropharynx is clear and moist. No oropharyngeal exudate. Eyes: EOM are normal. Pupils are equal, round, and reactive to light. Neck: Supple, no tracheal deviation. Cardiovascular: Normal rate, regular rhythm. Equal and intact distal pulses throughout. Pulmonary/Chest: Effort normal and breath sounds normal. No respiratory distress. Abdominal: Soft. Marked left and right lower abdominal tenderness with rebound and guarding. Marked left flank tenderness. No distension. Bowel sounds present. Musculoskeletal: Range of motion grossly intact, moving all extremities. No edema or tenderness appreciated. Neurological: AOx3. Grossly nonfocal exam. Strength and sensation intact and equal to bilateral upper and lower extremities. Skin: Warm and dry, no rashes or pallor appreciated. Psychiatric: Appropriate mood and affect. Behavior appears normal. Vital Signs Vital Signs Date Time Temp Pulse Resp B/P Pulse Ox O2 Delivery O2 Flow Rate FiO2 11/08/16 21:24 36.8 94 15 150/84 94 Room Air 11/08/16 17:52 36.6 85 18 128/70 95 Room Air Interpretation & Diagnostics Lab Results Interpretation Result Diagram: 11/08/16182911/08/161829 Test 11/08/16 18:30 11/08/16 19:09 White Blood Count 6.7th/mm3 (3.8-10.1) Red Blood Count 3.71mil/mm3 (3.90-5.20) Hemoglobin 10.8g/dL (12.0-15.6) Hematocrit 33.5% (35.0-46.0) Mean Corpuscular Volume 90.3fL (81-100) Mean Corpuscular Hemoglobin 29.1pg (27.0-35.0) Mean Corpuscular Hemoglobin Concent 32.2% (32.0-37.0) Red Cell Distribution Width 13.7% (12.3-15.4) Platelet Count 290bil/L (150-400) Neutrophils (%) (Auto) 55.8% (40-74) Lymphocytes (%) (Auto) 27.4% (14-46) Monocytes (%) (Auto) 8.5% (4-12) Eosinophils (%) (Auto) 7.6% (0-5) Basophils (%) (Auto) 0.6% (0-3) Prothrombin Time 9.7sec (8.1-12.5) Prothromb Time International Ratio 0.91ratio Sodium Level 138mEq/L (134-144) Potassium Level 4.2mEq/L (3.5-5.2) Chloride Level 104mEq/L (97-108) Carbon Dioxide Level 24mmol/L (18-29) Blood Urea Nitrogen 26mg/dL (8-27) Creatinine 0.73mg/dL (0.57-1.00) Estimat Glomerular Filtration Rate 114mL/min (>59) Glucose Level 93mg/dL (60-99) Lactic Acid Level 0.6mmol/L (0.4-2.0) Calcium Level 8.6mg/dL (8.5-10.1) Magnesium Level 2.5mg/dL (1.6-2.6) Total Bilirubin 0.2mg/dL (0.0-1.2) Aspartate Amino Transf (AST/SGOT) 34U/L (0-50) Alanine Aminotransferase (ALT/SGPT) 33U/L (0-32) Alkaline Phosphatase 91U/L (25-165) Total Protein 6.6g/dL (6.4-8.4) Albumin 3.5g/dL (3.4-5.0) Lipase 28U/L (13-60) Urine Color [place] (YELLOW) Urine Appearance Hazy (CLEAR,HAZY) Urine pH (5.0-8.0) Urine Specific [place] 1.020 (1.003-1.035) Urine Protein mg/dL (NEG,TRACE) Urine Glucose (UA) mg/dL (NEGATIVE) Urine Ketones mg/dL (NEGATIVE) Urine Occult Blood (NEGATIVE) Urine Nitrite (NEGATIVE) Urine Bilirubin (NEGATIVE) Urine Urobilinogen mg/dL (NORMAL) Urine Leukocyte Esterase (NEGATIVE) Urine RBC >50/hpf (0-2) Urine WBC 0-5/hpf (0-5) Urine Epithelial Cells Occasional/hpf (NONE-MOD) Urine Crystals Oxalic acid crystals (NONE Urine Bacteria Few/hpf (NONE-FEW) Urine Hyaline Casts None/lpf (NONE) Urine Granular Casts None seen (NONE SEEN) Urine Waxy Casts None seen (NONE SEEN) Urine Red Blood Cell Casts None seen (NONE SEEN) Urine White Blood Cell Casts None seen (NONE SEEN) Urine Mucus Present (None Seen) Urine Trichomonas None seen (NONE SEEN) Urine Yeast None (NONE SEEN) Urinalysis Comment Color interference Urine Culture Reflexed Not indicated CT Abd / Pelvis Interpretation IMPRESSION: 1. 6 mm stone in the left UPJ causing moderate left-sided hydronephrosis stable compared to prior CT scans. 5 mm stone noted in the left UVJ is causing mild left-sided hydroureter. 2. Small, bilateral nonobstructing cortical renal stones. 3. Intrahepatic and extrahepatic biliary dilatation which has progressed in the interval since the prior CT scans. Recommend correlation with laboratory data to exclude though obstruction. 4. Pancreatic duct at dilatation with slight heterogeneous enhancement and hypoattenuation of the uncinate process of the pancreas. Underlying pancreatic neoplasm cannot be excluded. Recommend dedicated CT scan pancreatic protocol or MRI pancreatic protocol for further evaluation. 5. Postsurgical changes. 6. Severe fecal loading throughout colon. Please correlate with clinical data. Dictated by: Eden Cheung MD, PhD on 11/08/2016 at 19:49 Study type: Abdominal CT IV contrast, Abdom CT oral contrast Interpretation / Wet Read by: Interpret - Radiologist Re-Eval/Medical Decision Med Decision/Clinical Course In summary, 66-year-old female presenting to the ED for evaluation of left flank pain. Differential is broad and includes nephrolithiasis, ureterolithiasis, small bowel obstruction, intra-abdominal mass, appendicitis, cystitis, pancreatitis, etc. Initially seen in clinic and with 11-30 white blood cells and 11-30 red blood cells on UA, however repeat urinalysis here shows no signs of infection. Labs notable for a hemoglobin of 10.8 from 10.5 and May, lactic acid 0.6, lipase of 28. CBC and CMP otherwise grossly within normal limits. CT scan demonstrates a 6 mm obstructing stone in the left UPJ causing moderate left-sided hydronephrosis, as well as the other findings above. Obvious concern for pancreatic duct dilatation and biliary duct dilatation for pancreatic neoplasm; this was discussed with the admitting team and the patient. With respect to her symptoms, they seem to be most likely explained by the ureterolithiasis on the left. Discussed the patient with Dr. Jarvis of urology as per below. Plan admission for further management and evaluation. Patient given Zofran, IV fluids, Dilaudid here in the ED with mild improvement in symptoms. Patient agreeable to the plan as stated, no further questions. Time of Eval: 20:20 Re-Evaluation/Progress Note: Patient's pain and nausea are still present. She is informed of her CT reuslts and the plan to consult urology about admission. Time of Eval: 20:46 Patient Status: Pain improved Re-Evaluation/Progress Note: Patient understands and agrees with the plan to admit. Consultation #1: Referral / Consult Name: Eden Jarvis MD Consulted With: Urology Call Returned at: 20:32 Sandstone Splitter: Will see patient, Agrees with eval, Agrees with plan, Accepts admit Note: Admit to hospitalist; possible stent placement in the morning. Consultation #2: Referral / Consult Name: Ashley Rice DO Consulted With: Hospitalist Call Returned at: 20:40 Sandstone Splitter: Will see patient, Agrees with eval, Agrees with plan, Accepts admit Counseled Regarding: Diagnosis, Lab results, Need for admission Discharge & Departure Primary Impression: Ureterolithiasis Disposition: ADMITTED TO HOSPITAL Discharge Condition All VS Reviewed: Yes Condition: Stable Referrals: Kei Mcfarlane MD (PCP) Diego Attestation Portions of this note were transcribed by Car Shahid. I, Dr. Sim personally performed the history, physical exam and medical decision-making; I reviewed and confirmed the accuracy of the information in the transcribed note. Signed by: Diego Escobar, 11/08/162055. copies to: Kei Mcfarlane MD, William B MD Nov 08, 2016 17:56 CAR SHAHID Nov 08, 2016 18:05 Sandstone Splitter: Will see patient, Agrees with eval, Agrees with plan, Accepts admit Counseled Regarding: Diagnosis, Lab results, Need for admission Discharge & Departure Primary Impression: Ureterolithiasis Disposition: ADMITTED TO HOSPITAL Discharge Condition All VS Reviewed: Yes Condition: Stable Referrals: Kei Mcfarlane MD (PCP) Diego Attestation Portions of this note were transcribed by Car Shahid. I, Dr. Sim personally performed the history, physical exam and medical decision-making; I reviewed and confirmed the accuracy of the information in the transcribed note. Signed by: Diego Escobar, 11/08/16 653. copies to: Kei Mcfarlane MD, William B MD Nov 08, 2016 17:56 CAR SHAHID Nov 08, 2016 18:05 Humble Sim MD Nov 08, 2016 17:56 CAR SHAHID Nov 08, 2016 18:05
[2016-11-08] MEDS ORDERED: Ondansetron 2 mg/mL 2 mL Inj IVPUSH ONE (18:00)
[2016-11-08 18:57] LABS: BASOPHILS % (AUTO) 0.6 % (0-3); EOSINOPHILS % (AUTO) 7.6 % (0-5); MONOCYTES % (AUTO) 8.5 % (4-12); Mean Corpuscular Hemoglobin 29.1 pg (27.0-35.0); Mean Corpuscular Volume 90.3 fL (81-100); NEUTROPHILS % (AUTO) 55.8 % (40-74); Platelet Count 290 bil/L (150-400)
[2016-11-08 19:12] LABS: INR 0.91 ratio
[2016-11-08 19:19] LABS: Magnesium 2.5 mg/dL (1.6-2.6)
[2016-11-08 19:35] LABS: APPEARANCE,URINE HAZY (CLEAR,HAZY); COLOR,URINE ORANGE (YELLOW)
--- NOTE | 2016-11-08 20:03 | DRSVH ---
PROCEDURE: CT ABDOMEN AND PELVIS WITH CONTRAST ([id number]) INDICATIONS: abd pain TECHNIQUE: After the administration of intravenous contrast, 5 mm thick sections acquired from the diaphragm to the symphysis. 5 mm coronal and sagittal reformats were acquired. For radiation dose reduction, the following was used: automated exposure control, adjustment of mA and/or kV according to patient siz e. COMPARISON: [facility], CT, CT ABD PELVIS W&WO CON IVP, 06/17/2016, 10:35. [facility], CT, CT KUB, 08/23/2016, 7:10. FINDINGS: Image quality: Excellent. ABDOMEN: Lung bases: Lung bases are clear. Heart size is normal. Solid organs: Liver and spleen are normal in size and enhancement. Punctate calcification noted in t he spleen compatible sequela prior granulomatous disease. Multiple hepatic cysts are again noted. Ga llbladder surgically absent. Biliary system is dilated with the common bile duct measuring up to 1.8 cm and the common hepatic duct measuring up to 2.1 cm. Biliary dilatation has progressed in interva l since prior CT scans. The pancreatic duct is dilated measuring up to 6 mm in diameter. The uncina te process of the pancreas is slightly hypoattenuating and demonstrates heterogeneous postcontrast en hancement. Underlying pancreatic neoplasm cannot be excluded. Recommend dedicated MRI or CT scan pa ncreatic protocol for definitive characterization. No adrenal nodules. 6 mm stone is noted in the le ft UPJ causing moderate left-sided hydronephrosis is unchanged compared to prior CT scans. 5 mm ston e is noted in the left UPJ and a small, approximately 1 mm stones are noted in the distal left ureter immediately proximal to left UVJ. Mild left-sided hydroureter is noted. 1 mm nonobstructing stone and 2 mm nonobstructing stone noted in the inferior pole of the right kidney. [address] one in the interpolar left kidney there Peritoneum and bowel: Surgical changes compatible prior gastric bypass surgery noted. Bowel loops d emonstrate normal wall thickness and caliber. Large amount of stool noted throughout the colon. No fr ee fluid or air. Nodes and vessels: No retroperitoneal or mesenteric adenopathy by size criteria. Aorta and inferior vena cava are normal in size. Miscellaneous: No ventral hernias. PELVIS: Genitourinary: Bladder wall thickness is normal. Uterus is surgically absent. Miscellaneous: No inguinal hernias or adenopathy. Bones: No suspicious bony lesions. No vertebral body compression fractures. Spine degenerative dise ase and facet arthropathy noted. IMPRESSION: 1. 6 mm stone in the left UPJ causing moderate left-sided hydronephrosis stable compared to prior CT scans. 5 mm stone noted in the left UVJ is causing mild left-sided hydroureter. 2. Small, bilateral nonobstructing cortical renal stones. 3. Intrahepatic and extrahepatic biliary dilatation which has progressed in the interval since the p rior CT scans. Recommend correlation with laboratory data to exclude though obstruction. 4. Pancreatic duct at dilatation with slight heterogeneous enhancement and hypoattenuation of the un cinate process of the pancreas. Underlying pancreatic neoplasm cannot be excluded. Recommend dedica genaro CT scan pancreatic protocol or MRI pancreatic protocol for further evaluation. 5. Postsurgical changes. 6. Severe fecal loading throughout colon. Please correlate with clinical data. Dictated by: Eden Cheung MD, PhD on 11/08/2016 at 19:49 Approved by: Eden Cheung MD, PhD on 11/08/2016 at 20:02
[2016-11-08] MEDS ORDERED: HYDROmorphone 1 mg/mL Inj IVPUSH PRN (20:20)
[2016-11-08] MEDS ORDERED: Ondansetron 2 mg/mL 2 mL Inj IVPUSH PRN (20:20)
[2016-11-08] MEDS ORDERED: ASPI325T32 PO (21:05)
[2016-11-08] MEDS ORDERED: POLY1DRO BOTH_EYES (21:13)
[2016-11-08] MEDS ORDERED: CYAN1TAB65 SL (21:16)
[2016-11-08 21:24] VITALS: BP 150/84; PULSE 94; RESP 15; O2SAT 94
[2016-11-08] MEDS ORDERED: Alum-Mag Hydrox-Simeth 30 mL Suspension PO PRN (21:50)
[2016-11-08] MEDS ORDERED: Polyethylene Glycol (PEG) 17 Gm Powder PO PRN (21:50)
[2016-11-08 22:29] VITALS: BP 154/90; PULSE 92; RESP 17; O2SAT 97
[2016-11-08] MEDS: 0.9% Sodium Chloride 1,000 ML IV SCH (22:39)
--- NOTE | 2016-11-08 23:24 | PCM.HPMED ---
Subjective Date of Service Nov 08, 2016 Primary Provider: Admitting Physician: Ashley Rice DO Primary Care Physician: Kei Mcfarlane MD Attending Physician: Ashley Rice DO Admit Status: From the Emergency Department Chief Complaint: Back pain History of Present Illness: Belinda Painting is a 66-year-old woman with past medical history significant for hypertension, fibromyalgia, IBS and frequent recurrent nephrolithiasis requiring surgery who presented to [facility] emergency department today from urgent care due to lower abdominal "grabbing pain"that began this morning. She noted that the pain started in her back and her left flank and radiates down into her groin. She denies any fevers or chills. She notes some urinating, hematuria with some associated dizziness and nausea without any vomiting. Patient has had multiple episodes of kidney stones and states that her current pain is similar to that. Patient has a fentanyl patch normally due to chronic pain associated with fibromyalgia as well as cervical spine fusion with some failed screws. Patient has not received much of her home pain medications right now and feels that she is in terrible 10/10 pain. Patient attempted to take some Pyridium at home to see if this would alleviate her pain but this did not help. Patient also notes some mild to moderate right upper quadrant pain for the last month. Patient has noted intermittent cramping pain in that region but is not associated with anything. Usually lasts for several minutes and then goes away. Patient is status post cholecystectomy. She denies any recent weight loss or vomiting. In the Emergency department her vital signs were stable. CT revealed moderate left-sided hydronephrosis secondary to 6 mm stone in the left UPJ as well as a mild left-sided hydroureter multiple kidney stones noted. ED physician contacted Dr. Jarvis the on-call urologist was kindly agreed to see the patient in consult tomorrow and likely proceed with the procedure tomorrow. Review of Systems: A comprehensive review of systems was conducted with the patient and found to be negative except as above in the History of Present Illness. Allergies Coded Allergies: TAPE (Verified Allergy, Severe, blisters (PAPER TAPE OK), 11/08/16) cisapride (Verified Allergy, Severe, SEVERE DIARRHEA, 11/08/16) Macrolide Antibiotics (Verified Allergy, Unknown, UNKNOWN, 11/08/16) brimonidine (Unverified Allergy, Unknown, 11/08/16) ENTERED FROM UNCODED ALLERGIES chlorhexidine (Unverified Allergy, Unknown, 11/08/16) ENTERED FROM UNCODED ALLERGIES meperidine (Verified Allergy, Unknown, UNKNOWN, 11/08/16) miconazole (Unverified Allergy, Unknown, 11/08/16) ENTERED FROM UNCODED ALLERGIES polymyxin B (Verified Allergy, Unknown, UNKNOWN, 11/08/16) prochlorperazine (Verified Allergy, Unknown, UNKNOWN (PHENOTHIAZINES) , 11/08/16) erythromycin ethylsuccinate (Verified Adverse Reaction, Severe, cramping diarrhea, 11/08/16) gabapentin (Verified Adverse Reaction, Severe, ANXIETY/DEPRESSION, 11/08/16 ) metoclopramide (Verified Adverse Reaction, Severe, SEVERE TWITCHING, ) pregabalin (Verified Adverse Reaction, Severe, PERIPHERAL EDEMA, 11/08/16) propranolol (Verified Adverse Reaction, Severe, DIARRHEA, 11/08/16) Uncoded Allergies: CHLOROPREP (Allergy, Severe, RED WELTS, 07/26/13) bee stings (Allergy, Unknown, UNKNOWN, 07/26/13) MICONAZOLE (Adverse Reaction, Severe, SWELLING/TOPICAL RASH, 07/26/13) BROMINDIONE (Adverse Reaction, Unknown, FOUND IN COMBIGAN EYE GTTS- REACTION UNKNOWN, 07/26/13) Home Medications Belinda Painting [id number] 1950 11/08/2016 04:45 PM 04/26 Start Date Medication Directions 12/22/2012 acetaminophen 500 mg tablet take 2 tablet (1000MG) by oral route every 6 hours as needed 09/11/2015 Aleve 220 mg capsule 2 daily 06/17/2016 amitriptyline 10 mg tablet take 3 tablet by oral route every evening 1 hour prior to bed for sleep/mood 07/02/2016 B-12 Plus 5,000 mcg-100 mcg sublingual tablet take 1 a day 05/15/2015 Colace 100 mg capsule take 1 - 2 Capsule by oral route 2 times every day as needed for constipation 12/22/2012 diphenhydramine 25 mg tablet take 1 - 2 tablet (25MG) by ORAL route every 4 - 6 hours as needed 07/01/2016 Durable Medical Equipment disabled parking placard 10/01/2016 fentanyl 37.5 mcg/hour transdermal patch apply 1 patch by transdermal route every 48 hours FISH OIL take 1 Capsule by Oral route every day 02/12/2016 Flonase 50 mcg/actuation nasal spray,suspension spray 2 spray by Intranasal route every day in each nostril for allergies. 07/01/2016 fluoxetine 20 mg capsule take 3 capsule (60MG) by oral route every day for mood 06/17/2016 lansoprazole 30 mg capsule,delayed release take 1 capsule by ORAL route 2 times every day before a meal for acid reflux. 06/15/2016 Lotemax 0.5 % eye drops,suspension INSTILL ONE DROP IN RIGHT EYE TWICE DAILY (CLOSE EYES FOR 2 MINUTES AFTER PUTTING DROP IN) 04/17/2016 Lumigan 0.01 % eye drops one drop right eye at night 10/05/2015 Nystop 100,000 unit/gram topical powder use topically as needed. 07/01/2016 ondansetron 4 mg disintegrating tablet take 1 - 2 Tablet by oral route every [address] on top of the tongue where it will dissolve, then swallow 07/02/2016 Probiotic 20 billion cell capsule take 2 capsule a day 06/22/2013 Refresh Optive Advanced 0.5 %-1 %-0.5 % eye drops One drop both eyes 2-6 times daily for dryness. 01/19/2016 RESTASIS 0.05% EYE EMULSION instill 1 drop into affected eye every 12 hours 07/02/2016 Supplements join soother glucoamine chondroitm MSM 2 caplet a day 07/02/2016 Supplements green source multi vitamin mineral one tablet a day with food 07/02/2016 Supplements garlic fresh 500mg parsley 100mg 1 BID 07/02/2016 Supplements flaxseedoil 1000mg 450mg omega -3 one a day 07/02/2016 Supplements standard process calcium lactate 250mg magnesium citrate 50mg 6 tab a day Supplements calcium magnesium dose unknown 01/19/2016 timolol maleate 0.5 % eye drops 1 gtt right every morning within 30 minutes of waking. Close eyes for 2 minutes after putting drop in. 09/10/2016 tizanidine 4 mg tablet take 1/4 to 2 tablets orally at night. VITAMIN D3 5000IU 1 during winter and 2000IU during summer PMH Cataracts s/p bilateral extraction and macular "hole" repair Glaucoma s/p corneal transplant Hypertension Asthma TIA GERD Hiatal Hernia s/p Leif fundoplication Mild IBS Nephrolithiasis s/p lithotripsy UTI Fibromyalgia Anxiety Depression Asthma Hypertension Surgical History Cervical fusion Fissures Appendectomy Gastric bypass surgery Right middle trigger release Excision of right middle finger flexor ganglion cyst Nasal surgery Tonsillectomy Cholecystectomy Leif fundoplication Bilateral cataract extraction and macular "hole" repair Corneal transplant Family History Mother had lupus erythematosus as well as breast cancer. Father had diabetes mellitus. Patient has 2 brothers were alive and well. Patient has 1 brother who has congenital adrenal hyperplasia which was the cause of his . Social History Hx Alcohol Use: No Hx Substance Use: No Hx Tobacco Use: No Smoking Status: Never Smoker Exam Vital Signs Vital Sign - Last Date Time Temp Pulse Resp B/P Pulse Ox O2 Delivery O2 Flow Rate FiO2 11/08/16 22:29 36.8 92 17 154/90 97 Room Air Exam General: No acute distress, chronically ill appearing lady, appears older than stated age, pleasant, appropriately interactive HEENT: Normocephalic, atraumatic. External ears without defect. Pupils equal, round, and reactive to light and accommodation. Anicteric sclerae, moist conjunctivae, and no lid lag. Oropharynx free of erythema and cobble stoning with moist mucosa. Absent teeth with dentures removed. Neck: Supple with full range of motion. No jugular venous distension. No lymphadenopathy or thyromegaly. Cardiovascular: Regular rhythm, tachycardic with no murmurs, rubs, or gallops appreciated Pulmonary: Clear to auscultation bilaterally with no crackles, wheezes, or rhonchi. Normal respiratory effort with no use of accessory muscles. Abdomen: Bowel tones present. Soft, tenderness in the right upper quadrant and tenderness in the left lower quadrant, nondistended. Obese. No hepatosplenomegaly or masses appreciated. : Linder absent. Patient noting severe back pain and would not allow for CVA tenderness exam. Extremities: No clubbing, cyanosis, edema, or lymphadenopathy appreciated. Skin: Normal temperature, turgor, and texture; no rash, ulcers, or subcutaneous nodules appreciated. Neurological: Cranial nerves grossly intact. Normal muscle strength, tone, and bulk. Reflexes, coordination, and sensory function within normal limits. No known gait impairment. Psychiatric: Tearful but pleasant and cooperative. Normal affect. Alert and oriented to person, place, and time. Lab and Diagnostics Result Diagram: 11/08/[id number] X-Rays, CTs and MRIs CT ABDOMEN AND PELVIS WITH CONTRAST IMPRESSION: 1. 6 mm stone in the left UPJ causing moderate left-sided hydronephrosis stable compared to prior CT scans. 5 mm stone noted in the left UVJ is causing mild left-sided hydroureter. 2. Small, bilateral nonobstructing cortical renal stones. 3. Intrahepatic and extrahepatic biliary dilatation which has progressed in the interval since the prior CT scans. Recommend correlation with laboratory data to exclude though obstruction. 4. Pancreatic duct at dilatation with slight heterogeneous enhancement and hypoattenuation of the uncinate process of the pancreas. Underlying pancreatic neoplasm cannot be excluded. Recommend dedicated CT scan pancreatic protocol or MRI pancreatic protocol for further evaluation. 5. Postsurgical changes. 6. Severe fecal loading throughout colon. Please correlate with clinical data. Dictated by: Eden Cheung MD, PhD on 11/08/2016 at 19:49 Assessment & Plan Belinda Painting is a 66-year-old woman with past medical history significant for hypertension, fibromyalgia, IBS and frequent recurrent nephrolithiasis requiring surgery who presented to [facility] emergency department today from urgent care due to lower abdominal "grabbing pain"that began this morning. Nephrolithiasis with associated moderate chronic left-sided hydronephrosis and mild left-sided hydroureter, present on admission, active -Patient is status post urethroscopy, lithotripsy, basket extraction of calculus fragments, left urethral stent placement -Patient has also had multiple urinary tract infections -Review of outpatient neurology records does not reveal any known etiology to patient's recurrent nephrolithiasis -Dr. Jarvis of urology has been consulted. We appreciate his time expertise. Patient will likely undergo procedure tomorrow. -Nothing by mouth after midnight -Normal saline at 100 mL per hour -Pain management as patient is normally on a fentanyl patch and is narcotic tolerant Double duct sign on abdominal CT, noting biliary and pancreatic duct dilation, present on admission, after -This type of finding is highly suspicious for a pancreatic cancer -Patient has also noted ongoing pain in the region -Recommend consultation with gastroenterology in the morning. -Consider MRCP to further evaluate. Chronic issues, present on admission, stable: Glaucoma s/p corneal transplant -Continue outpatient eyedrops Hypertension -Continue outpatient medications when patient is not nothing by mouth. GERD -Continue outpatient medications when patient is not nothing by mouth Fibromyalgia -Hold by mouth at this time. IV pain medications as above. Anxiety/Depression -Continue outpatient medications when patient is not nothing by mouth. CODE STATUS: Full code Patient is admitted under inpatient status with expected length of stay greater than 2 midnights due to severity of presenting symptoms, risk of adverse event, and complexity of treatment plan. VTE Prophylaxis: Sub-Q Heparin (Unfractionated) Resuscitation Status: CPR: Attempt Resuscitation Attending Statement The patient was seen and examined together with house staff on 11/08/2016 and I agree with the history, exam and plan as outlined in the note above. Sarah Wolff DO Nov 08, 2016 22:57 Ashley Rice DO Nov 09, 2016 02:03
[2016-11-09] VITALS (11 sets, daily range): BP systolic 117–153; BP diastolic 65–81; PULSE 70–89; RESP 11–18; O2SAT 92–98
[2016-11-09] MEDS: HYDROmorphone 1 mg/mL Inj IVPUSH PRN ×3 (01:06→17:00)
[2016-11-09] MEDS: LacriLube S.O.P. 3.5 Gm Ophthalmic Ointment BOTH_EYES SCH ×3 (01:11→20:03)
[2016-11-09] MEDS: Heparin 5,000 Unit/mL Inj SUBQ SCH ×3 (01:12→16:29)
[2016-11-09] MEDS: Ondansetron 2 mg/mL 2 mL Inj IVPUSH PRN ×2 (01:40→08:36)
--- NOTE | 2016-11-09 05:18 | NUR ---
Admission Pt admitted to [facility] rm 1008 from Ed at 2215. Pt A/O x3, making needs known. Able to transfer from [facility] to bed with SBA. Pt rates pain 5/10 as she just rec'd dilaudid prior to transport. Pt is NPO for pending procedure in AM to remove a ureter stone. Pt is CPR. Up to [facility] with SBA. Oriented to room, call light and bathroom. Pt states she was just here in August for the same procedure. IV patent, IV fluids started. Pt denies nausea, had rec'd zofran in the ED. Call light in reach. Care continues
[2016-11-09 06:27] LABS: BASOPHILS % (AUTO) 0.8 % (0-3); EOSINOPHILS % (AUTO) 7.3 % (0-5); Mean Corpuscular Hemoglobin 28.4 pg (27.0-35.0); Mean Corpuscular Volume 91.5 fL (81-100); NEUTROPHILS % (AUTO) 51.4 % (40-74); Platelet Count 250 bil/L (150-400)
[2016-11-09] MEDS ORDERED: EPHEDrine/NS 5 mg/mL 5 mL Syringe ONE (08:00)
[2016-11-09] MEDS ORDERED: Ondansetron 2 mg/mL 2 mL Inj ONE (08:00)
[2016-11-09] MEDS ORDERED: Propofol 10,000 mCg/mL 20 mL Inj ONE (08:00)
[2016-11-09] MEDS ORDERED: fentaNYL-PF 50 mCg/mL 2 mL Inj ONE (08:00)
[2016-11-09] MEDS ORDERED: Dexamethasone 4 mg/mL Inj ONE (08:00)
[2016-11-09] MEDS ORDERED: CeFAZolin Inj 2 GM in Dextrose 5% 50 ML IV ONE (08:15)
[2016-11-09] MEDS: CYCLOSPORINE EYE BOTH_EYES SCH ×2 (08:30→19:43)
[2016-11-09] MEDS: 0.9% Sodium Chloride 1,000 ML IV SCH (08:36)
[2016-11-09] MEDS: Timolol 0.5% 5 mL Ophthalmic Solution RIGHT_EYE SCH (10:54)
--- NOTE | 2016-11-09 12:22 | NUR ---
Pt off unit Pt to O.R. at 1210 hrs.
[2016-11-09] MEDS ORDERED: Lactated Ringer's 1,000 ML IV ONE (12:24)
[2016-11-09] MEDS ORDERED: Belladonna Alk-Opium 60 mg Rectal Suppository RECTAL ONE (12:32)
[2016-11-09] MEDS ORDERED: HYDROmorphone 1 mg/mL Inj IVPUSH PRN (12:40)
[2016-11-09] MEDS ORDERED: fentaNYL-PF 50 mCg/mL 2 mL Inj IVPUSH PRN (12:40)
[2016-11-09] MEDS ORDERED: Lactated Ringer's 500 ML IV PRN (12:40)
[2016-11-09] MEDS ORDERED: Ondansetron 2 mg/mL 2 mL Inj IVPUSH PRN ×2 (12:40→12:55)
[2016-11-09] MEDS ORDERED: EPHEDrine Sulfate 50 mg/mL Inj IVPUSH PRN (12:40)
[2016-11-09] MEDS ORDERED: Atropine 0.4 mg/mL Inj IVPUSH PRN (12:40)
[2016-11-09] MEDS ORDERED: Lactated Ringer's 1,000 ML IV SCH (12:40)
[2016-11-09] MEDS ORDERED: Phenylephrine 10,000 mCg/mL Inj IVPUSH PRN (12:40)
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
[2016-11-09] MEDS ORDERED: Belladonna Alk-Opium 60 mg Rectal Suppository RECTAL PRN (12:55)
[2016-11-09] MEDS ORDERED: Polyethylene Glycol (PEG) 17 Gm Powder PO PRN (12:55)
[2016-11-09] MEDS ORDERED: diphenhydrAMINE 25 mg Capsule PO PRN ×2 (12:55→16:45)
[2016-11-09] MEDS ORDERED: MetoCLOpramide 5 mg/mL 2 mL Inj IVPUSH PRN (12:55)
--- NOTE | 2016-11-09 12:55 | PCM.ANEP1 ---
Post Anesthesia PACU Phase 1 Assessment Date of Service: Nov 09, 2016 Vital Signs 36.4 117/69 69 10 92% RA Anesthetic Administered: GA Level of Alertness: Sleeping, hard to arouse LAIRD's with Equal Strength: Yes Pain: No Nausea or Vomiting: No CV Function & Hydration Stable: Yes Airway Device: Oxygen Delivery: Room Air Lungs: Clear to Auscultation, Normal Air Movement PACU Phase 2 Assessment Complications: No Follow up Care: No Patient Instructions Provided: Yes Sharif Smith MD Nov 09, 2016 12:55
--- NOTE | 2016-11-09 13:20 | CONS ---
[address] [address] CONSULTATION REPORT PATIENT: RICK VAZQUEZ : 1950 MR#: [id number] ADMIT: 11/08/2016 JOB ID: [id number] DATE OF SERVICE: 11/09/2016 REASON FOR CONSULTATION: Left renal colic. HISTORY OF PRESENT ILLNESS: This 66-year-old woman presented in the emergency department last night with left-sided abdominal and flank pain consistent with previous episodes of renal colic. CT scan was performed showing a large proximal left ureteral calculus with minimal obstruction and an obstructing distal left ureteral calculus with gaip-hy-ibncsxwp hydronephrosis. The patient has had multiple previous stones and previous procedures. PAST MEDICAL, SOCIAL, AND FAMILY HISTORY: See admission note. EXAMINATION: Overweight, 66-year-old, in moderate distress from flank pain and more generalized pain from her fibromyalgia. Head and neck is clear. Chest is clear. Cardiovascular: Sinus rhythm. No murmurs. Abdomen is soft. There is left lower quadrant and left CVA tenderness. IMPRESSION: An 8 mm left proximal ureteral calculus and 5 mm left distal ureteral calculus. PLAN: Will be to basket the lower calculus and place a stent to relieve the obstruction. We will plan on coming back at a later date for either lithotripsy or ureteroscopy and laser lithotripsy.
[2016-11-09] MEDS: Lactated Ringer's 1,000 ML IV SCH (13:41)
--- NOTE | 2016-11-09 13:54 | NUR ---
Return to [facility] Pt returned from PACU tO [facility] at 1340 hrs. Alert and oriented. PIV asymptomatic and patent. Pt c/o nausea and pain. Zofran given in PACU so cannot give it again yet. Waiting for pharmacy to verify order for Toradol for pain.
--- NOTE | 2016-11-09 13:57 | OP ---
[address] [address] OPERATIVE REPORT PATIENT: RICK VAZQUEZ : 1950 MR#: [id number] ADMIT: 11/08/2016 JOB ID: [id number] DATE OF SURGERY: 11/09/2016 SURGEON: Eden Jarvis MD PREOPERATIVE DIAGNOSIS(ES): Left ureteral calculi. POSTOPERATIVE DIAGNOSIS(ES): Left ureteral calculi. PROCEDURES: Cystoscopy, ureteroscopy, stone basketing, insertion of left ureteral stent. ANESTHESIA: General anesthetic, Dr. . Under general anesthetic, the patient was placed in lithotomy position. The genitalia prepped and draped in a sterile manner. A 22-Bangladeshi cystoscope was introduced through a normal urethra. Ureteral orifices were normal in position. The left was somewhat edematous. A 0.035 Glidewire was advanced to the level of the left renal pelvis. Over this, a 15-Bangladeshi balloon dilation catheter was passed and the distal ureter dilated. The cystoscope was removed and a 7-Bangladeshi semi rigid ureteroscope was passed along the wire. Approximately 4 cm from the ureteral orifice, the stone was visualized. It was engaged with a four wire helical basket and removed intact. With the wire still in place, a 6-Bangladeshi 22 cm double-J stent was passed. When it was confirmed to be in good position fluoroscopically, the string was cut and removed and the wire withdrawn. The patient tolerated the procedure well. A B and O suppository was given for postoperative analgesia. The patient left the operating room in good condition under light anesthesia.
[2016-11-09] MEDS: Ketorolac 15 mg/mL Inj IVPUSH PRN (14:39)
--- NOTE | 2016-11-09 16:26 | NUR ---
Social Work- Multidisciplinary Rounds Pt discussed in rounds. No social work needs identified in rounds. SW unable to see pt today due to high census. SW will continue to follow. MERLENE Adan
--- NOTE | 2016-11-09 16:44 | PCM.PNMED ---
Subjective Date of Service Nov 09, 2016 Subjective Patient seen and examined today. She is after procedure. Feels comfortable. Vitals stable. Exam Vital Signs Vital Sign - Last Date Time Temp Pulse Resp B/P Pulse Ox O2 Delivery O2 Flow Rate FiO2 11/09/16 14:00 36.3 74 16 153/73 98 Room Air Intake and Output 11/08/16 11/08/16 11/09/16 Cumulative From/Thru 15:00 23:00 07:00 11/08/16 17:52 - 11/09/16 05:56 Intake Total 1000 ml 0 ml 1000 ml Balance 1000 ml 0 ml 1000 ml Intake Oral 0 ml 0 ml IV Total 1000 ml 1000 ml Exam General: No acute distress, Neck: Supple with full range of motion. No jugular venous distension. No lymphadenopathy or thyromegaly. Cardiovascular: Regular rhythm, tachycardic with no murmurs, rubs, or gallops appreciated Pulmonary: Clear to auscultation bilaterally with no crackles, wheezes, or rhonchi. Normal respiratory effort with no use of accessory muscles. Abdomen: Bowel tones present. Soft, tenderness in the right upper quadrant and tenderness in the left lower quadrant, nondistended. Obese. No hepatosplenomegaly or masses appreciated. Skin: Normal temperature, turgor, and texture; no rash, ulcers, or subcutaneous nodules appreciated. Neurological: Cranial nerves grossly intact. Normal muscle strength, tone, and bulk. Reflexes, coordination, and sensory function within normal limits. No known gait impairment. Lab and Diagnostics Result Diagram: 11/09/16 0541 11/09/16 0541 X-Rays, CTs and MRIs CT ABDOMEN AND PELVIS WITH CONTRAST IMPRESSION: 1. 6 mm stone in the left UPJ causing moderate left-sided hydronephrosis stable compared to prior CT scans. 5 mm stone noted in the left UVJ is causing mild left-sided hydroureter. 2. Small, bilateral nonobstructing cortical renal stones. 3. Intrahepatic and extrahepatic biliary dilatation which has progressed in the interval since the prior CT scans. Recommend correlation with laboratory data to exclude though obstruction. 4. Pancreatic duct at dilatation with slight heterogeneous enhancement and hypoattenuation of the uncinate process of the pancreas. Underlying pancreatic neoplasm cannot be excluded. Recommend dedicated CT scan pancreatic protocol or MRI pancreatic protocol for further evaluation. 5. Postsurgical changes. 6. Severe fecal loading throughout colon. Please correlate with clinical data. Dictated by: Eden Cheung MD, PhD on 11/08/2016 at 19:49 Assessment & Plan Belinda Painting is a 66-year-old woman with past medical history significant for hypertension, fibromyalgia, IBS and frequent recurrent nephrolithiasis requiring surgery who presented to [facility] emergency department today from urgent care due to lower abdominal "grabbing pain"that began this morning. Nephrolithiasis with associated moderate chronic left-sided hydronephrosis and mild left-sided hydroureter, present on admission, resolving -Patient is status post urethroscopy, lithotripsy, basket extraction of calculus fragments, left urethral stent placement -Patient has also had multiple urinary tract infections -Review of outpatient urology records does not reveal any known etiology to patient's recurrent nephrolithiasis -Pain controlled after the procedure -No signs of UTI Double duct sign on abdominal CT, noting biliary and pancreatic duct dilation, present on admission, ongoing -This type of finding is highly suspicious for a pancreatic cancer -Patient has also noted ongoing pain in the region -MRCP ordered, will get GI consult after the MRcP Chronic issues, present on admission, stable: Glaucoma s/p corneal transplant -Continue outpatient eyedrops Hypertension -Continue outpatient medications when patient is not nothing by mouth. GERD -Continue outpatient medications when patient is not nothing by mouth Fibromyalgia -home meds Anxiety/Depression -Continue outpatient medications CODE STATUS: Full code Patient is admitted under inpatient status with expected length of stay greater than 2 midnights due to severity of presenting symptoms, risk of adverse event, and complexity of treatment plan. VTE Prophylaxis: Sub-Q Heparin (Unfractionated) VTE Mechanical Devices: Intermittant Pneumatic CD Resuscitation Status: CPR: Attempt Resuscitation Time spent 35 mins Attila Salvador MD Nov 09, 2016 16:21
[2016-11-09] MEDS ORDERED: Loteprednol Etabonate (Lotemax) RIGHT_EYE PRN (17:35)
[2016-11-09] MEDS: HYDROcodone-APAP 5-325 mg Tablet PO PRN (20:03)
[2016-11-10 00:15] VITALS: BP 125/82; PULSE 80; RESP 17; O2SAT 96
[2016-11-10] MEDS: Heparin 5,000 Unit/mL Inj SUBQ SCH ×3 (00:18→18:03)
[2016-11-10] MEDS: HYDROmorphone 1 mg/mL Inj IVPUSH PRN ×2 (00:19→08:30)
[2016-11-10] MEDS: oxyCODONE-Acetamin 5-325 mg Tablet PO PRN ×2 (00:59→05:55)
[2016-11-10] MEDS: Ketorolac 15 mg/mL Inj IVPUSH PRN ×5 (01:36→23:07)
[2016-11-10] MEDS: Lactated Ringer's 1,000 ML IV SCH ×2 (01:36→15:13)
--- NOTE | 2016-11-10 03:15 | NUR ---
Pain/Stool softeners Patient rating pain to pelvic area/left flank as an 8/10. When asked why patient didn't ask for pain medications before it reached this point, patient stated, "I didn't think it'd get this bad. I thought I'd be okay." Education provided re: pain management and effectiveness of giving pain medications before pain becomes "severe". Patient states understanding. States pain is "much better" and has resolved with the alternating use of Percocet PO with Dilaudid IVP. Senna 17.2 mg PO given this AM per patient request r/t narcotic use. States she normally takes stool softeners at home BID and would like to keep up with the regimen.
[2016-11-10 06:14] VITALS: BP 125/77; PULSE 81; RESP 17; O2SAT 98
[2016-11-10 06:19] LABS: BASOPHILS % (AUTO) 0.3 % (0-3); Mean Corpuscular Hemoglobin 29.1 pg (27.0-35.0); Mean Corpuscular Volume 91.4 fL (81-100); NEUTROPHILS % (AUTO) 55.1 % (40-74); Platelet Count 249 bil/L (150-400)
--- NOTE | 2016-11-10 07:39 | PCM.PNMED ---
Subjective Date of Service Nov 10, 2016 Subjective Patient seen and examined. Some pain with urination this morning, but it resolved. Vitals stable. Patient has not had anything since last night since she is supposed to get MRCP today. Exam Vital Signs Vital Sign - Last Date Time Temp Pulse Resp B/P Pulse Ox O2 Delivery O2 Flow Rate FiO2 11/10/16 06:14 36.7 81 17 125/77 98 Room Air Intake and Output 11/09/16 11/09/16 11/10/16 Cumulative From/Thru 15:00 23:00 07:00 11/08/16 17:52 - 11/10/16 06:13 Intake Total 1936 ml 470 ml 2177 ml 5583 ml Output Total 1450 ml 1150 ml 2600 ml Balance 1936 ml -980 ml 1027 ml 2983 ml Intake Oral 470 ml 918 ml 1388 ml IV Total 1936 ml 1259 ml 4195 ml Output Urine Total 1450 ml 1150 ml 2600 ml # Bowel Movements 0 0 Exam General: No acute distress, Neck: Supple with full range of motion. No jugular venous distension. No lymphadenopathy or thyromegaly. Cardiovascular: Regular rhythm, tachycardic with no murmurs, rubs, or gallops appreciated Pulmonary: Clear to auscultation bilaterally with no crackles, wheezes, or rhonchi. Normal respiratory effort with no use of accessory muscles. Abdomen: Bowel tones present. Some tenderness to deep palpation epigastric area. No hepatosplenomegaly or masses appreciated. Skin: Normal temperature, turgor, and texture; no rash, ulcers, or subcutaneous nodules appreciated. Neurological: Cranial nerves grossly intact. Normal muscle strength, tone, and bulk. Reflexes, coordination, and sensory function within normal limits. No known gait impairment. Lab and Diagnostics Result Diagram: 11/10/16 0456 11/10/16 0456 X-Rays, CTs and MRIs CT ABDOMEN AND PELVIS WITH CONTRAST IMPRESSION: 1. 6 mm stone in the left UPJ causing moderate left-sided hydronephrosis stable compared to prior CT scans. 5 mm stone noted in the left UVJ is causing mild left-sided hydroureter. 2. Small, bilateral nonobstructing cortical renal stones. 3. Intrahepatic and extrahepatic biliary dilatation which has progressed in the interval since the prior CT scans. Recommend correlation with laboratory data to exclude though obstruction. 4. Pancreatic duct at dilatation with slight heterogeneous enhancement and hypoattenuation of the uncinate process of the pancreas. Underlying pancreatic neoplasm cannot be excluded. Recommend dedicated CT scan pancreatic protocol or MRI pancreatic protocol for further evaluation. 5. Postsurgical changes. 6. Severe fecal loading throughout colon. Please correlate with clinical data. Dictated by: Eden Cheung MD, PhD on 11/08/2016 at 19:49 Assessment & Plan Belinda Painting is a 66-year-old woman with past medical history significant for hypertension, fibromyalgia, IBS and frequent recurrent nephrolithiasis requiring surgery who presented to [facility] emergency department today from urgent care due to lower abdominal "grabbing pain"that began this morning. Nephrolithiasis with associated moderate chronic left-sided hydronephrosis and mild left-sided hydroureter, present on admission, resolving -Patient is status post urethroscopy, lithotripsy, basket extraction of calculus fragments, left urethral stent placement -Patient has also had multiple urinary tract infections -Review of outpatient urology records does not reveal any known etiology to patient's recurrent nephrolithiasis -Pain controlled after the procedure -No signs of UTI Double duct sign on abdominal CT, noting biliary and pancreatic duct dilation, present on admission, ongoing -This type of finding is highly suspicious for a pancreatic cancer -Patient has also noted ongoing pain in the region -MRCP ordered, will get GI consult after the MRcP Chronic issues, present on admission, stable: Glaucoma s/p corneal transplant -Continue outpatient eyedrops Hypertension -Continue outpatient medications when patient is not nothing by mouth. GERD -Continue outpatient medications when patient is not nothing by mouth Fibromyalgia -home meds Anxiety/Depression -Continue outpatient medications CODE STATUS: Full code Patient is admitted under inpatient status with expected length of stay greater than 2 midnights due to severity of presenting symptoms, risk of adverse event, and complexity of treatment plan. VTE Prophylaxis: Sub-Q Heparin (Unfractionated) VTE Mechanical Devices: Intermittant Pneumatic CD Resuscitation Status: CPR: Attempt Resuscitation Time spent 35 mins Attila Salvador MD Nov 10, 2016 07:39
[2016-11-10 08:07] VITALS: BP 129/70; PULSE 74; RESP 16; O2SAT 95
[2016-11-10] MEDS ORDERED: [UNRECOGNIZED DRUG - OTHER] SL SCH (08:30)
[2016-11-10] MEDS: Timolol 0.5% 5 mL Ophthalmic Solution RIGHT_EYE SCH (08:45)
[2016-11-10] MEDS: Fluticasone 0.05% 15 Spray/2 Gm 16 Gm Nasal Spray NASAL SCH (08:46)
--- NOTE | 2016-11-10 09:55 | PROG NOTE ---
[address] [address] PROGRESS NOTE PATIENT: RICK VAZQUEZ : 1950 MR#: [id number] ADMIT: 11/08/2016 JOB ID: [id number] DATE: 11/10/2016 SUBJECTIVE: Postop day one, stone basketing and stent placement. Patient is having significant amount of pain from the stent. This is likely a combination of bladder spasm and ureteral colic which is all secondary to the stent. She should respond best to Toradol and B and O suppositories for pain relief. OBJECTIVE: Vital signs is stable. No elevation in white count. Electrolytes, BUN, and creatinine within normal limits. ASSESSMENT AND PLAN: I will try and schedule her surgery for her remaining stone as soon as possible next week.
--- NOTE | 2016-11-10 10:48 | DRSVH ---
PROCEDURE: MRI ABDOMEN WITHOUT CONTRAST ([id number]) INDICATIONS: Elevated LFTs, abdominal pain TECHNIQUE: Coronal HASTE through the abdomen, axial 2-D FLASH in- and [id number], and breath-hold T2 FSE with fat saturation through the biliary system and pancreas. Oblique coronal and axial thin-slice HASTE, radial thick-slab HASTE centered on the extrahepatic bile ducts. Intravenous secretin: Not requested. COMPARISON: [facility] , MR, ABDOMEN W&W/O CONTRAST, 08/07/2006, 7:51. [facility], CT, ABD/PELVIS W/CON (PNL), 12/11/2012, 11:01. [facility], CT, CT ABD PELVIS W &WO CON IVP, 06/17/2016, 10:35. [facility], CT, CT ABD PELVIS W CON, 11/08/2016, 19:38. FINDINGS: Image quality: Diagnostic Liver and pancreas: The liver is normal in size. No significant signal dropout is evident on the op posed phased images compared to the in phase images to suggest hepatic steatosis. No definite solid l iver lesions are suspected. Multiple scattered liver cysts are identified, which have only slightly increased since 2006 and are unchanged since the most recent CT of the abdomen and pelvis. The large st cyst is located within the medial segment of the superior left hepatic lobe, measuring approximate ly 2.2 cm in diameter. There also likely is a cyst within the region of the harsha hepatis adjacent t o the left hepatic duct. The common bile duct is enlarged and noted to measure up to approximately 1 .6 cm in diameter. There is moderate intrahepatic biliary dilatation. The size of the intrahepatic biliary ducts and the common bile duct have not significantly changed since May 2016 and have on ly slightly increased since the previous MRI of the abdomen dated 08/07/2006. No intraluminal filling defects are identified. Expected flow-voids are seen within the portal vein and hepatic veins. The patient has had a previous cholecystectomy. The pancreas is normal in size. There is dilatation of the main pancreatic duct, measuring up to [place] roximately 6 mm in diameter, which also has not significantly changed since more recent CT scans and only has slightly increased since the MRI of the abdomen from 2006. No mass is evident at the level of the ampulla/head of the pancreas. The area of heterogeneous enhancement involving the uncinate pr ocess of the pancreas is not readily appreciated on the MRCP. No definable mass within this region i s evident. However, the pancreas is not well characterized were evaluated without contrast. Numerou s distended sidebranches are identified throughout the pancreas. Other solid organs: The spleen, adrenals, and kidneys are similar to the previous CT from 11/08/16. T he degree of left-sided hydronephrosis has decreased in the interim. There is only mild residual lef t-sided hydronephrosis. Nodes and vessels: Normal lymphadenopathy within the abdomen is appreciated. Abdominal aorta is norm al in course and caliber. Bowel and peritoneum: Postoperative changes of the stomach are present. Moderate to large amount of residual stool is seen within the transverse colon. The imaged small bowel loops are nondilated. N o definite free fluid or loculated fluid collection is appreciated. Lung bases: There may be small bilateral pleural effusions. Heart size is normal. Bones and soft tissues: No ventral hernias. Bone marrow is of normal overall signal. Moderate dege nerative changes of the spine are present with dextroconvex curvature. IMPRESSION: 1. Marked intrahepatic and extrahepatic biliary dilatation is similar to the numerous previous exami nations and has only slightly increased since 2006, suggestive of a benign process. However, if the patient's liver function tests are persistently elevated and or increasing, please consider ERCP for better evaluation as this appearance may be related to focal stricture. No choledocholithiasis. No d efinite mass at the head of the pancreas is evident. There is pancreatic dilatation, as well, which is similar to multiple prior studies. 2. No definable pancreatic mass is evident on this exam. However, evaluation of the pancreas withou t contrast is limited and subsequently, pancreatic lesions could potentially be missed on MRCP. 3. Decreasing degree of left-sided hydronephrosis. Dictated by: John Bland M.D. on 11/10/2016 at 9:19 Approved by: John Bland M.D. on 11/10/2016 at 9:46
[2016-11-10] MEDS: LacriLube S.O.P. 3.5 Gm Ophthalmic Ointment BOTH_EYES SCH ×2 (10:52→22:18)
--- NOTE | 2016-11-10 11:05 | DRSVH ---
PROCEDURE: X-RAY KUB ([id number]) INDICATIONS: left renal calculus TECHNIQUE: One view of the abdomen acquired. COMPARISON: [facility], CR, XR KUB, 07/11/2016, 12:34. [facility], CT, CT A BD PELVIS W CON, 11/08/2016, 19:38. FINDINGS: Surgical changes and devices: Surgical clips at the gastroesophageal junction are present. Cholecyste ctomy clips are present. A left ureteral stent is present. Bowel: B large amount of colonic stool. owel gas pattern is otherwise normal. Soft tissues: No suspicious abdominal calcifications. Visualized solid organ contours appear normal in size. Bones: No suspicious bony lesions. IMPRESSION: No acute process. The known left ureteropelvic junction calculus is not seen. New uretera l stent. Dictated by: Jocelyne Mercedes M.D. on 11/10/2016 at 11:03 Approved by: Jocelyne Mercedes M.D. on 11/10/2016 at 11:04
[2016-11-10 12:27] VITALS: BP 146/77; PULSE 74; RESP 16; O2SAT 96
[2016-11-10] MEDS: Lansoprazole 30 mg ODTablet PO SCH ×2 (12:58→22:17)
[2016-11-10] MEDS: HYDROcodone-APAP 5-325 mg Tablet PO PRN ×3 (12:59→22:16)
[2016-11-10] MEDS: CYCLOSPORINE EYE BOTH_EYES SCH ×2 (13:00→22:17)
--- NOTE | 2016-11-10 16:05 | NUR ---
Social Work- Multidisciplinary Rounds Pt discussed in rounds. SW unable to see pt today due to high census. SW will continue to follow. MERLENE Adan
[2016-11-10 17:11] VITALS: BP 123/76; PULSE 79; RESP 16; O2SAT 96
[2016-11-10 21:41] VITALS: BP 128/62; PULSE 82; RESP 20; O2SAT 96
[2016-11-10] MEDS: Loteprednol Etabonate (Lotemax) RIGHT_EYE PRN (22:17)
[2016-11-11 01:03] VITALS: BP 126/62; PULSE 93; RESP 16; O2SAT 94
[2016-11-11] MEDS: Heparin 5,000 Unit/mL Inj SUBQ SCH ×3 (01:59→17:04)
[2016-11-11] MEDS: Lactated Ringer's 1,000 ML IV SCH (03:45)
[2016-11-11] MEDS: HYDROcodone-APAP 5-325 mg Tablet PO PRN (03:45)
--- NOTE | 2016-11-11 04:57 | NUR ---
pain pt having extreme pain with urination. she becomes tearful after urinating and rates her pain a 10/10. she was given 2 PO norco and when that didn't help she was given IVP toradol. she says the toradol was effective. nurse also educated pt on B & O suppositories and told her they would help with the cramping and spasms. at this time pt is declining the suppositories saying the alternating of norco with toradol is effective. bed in low position, call light within reach. care continues.
[2016-11-11 05:17] LABS: BASOPHILS % (AUTO) 0.5 % (0-3); EOSINOPHILS % (AUTO) 10.3 % (0-5); MONOCYTES % (AUTO) 9.5 % (4-12); Mean Corpuscular Hemoglobin 28.3 pg (27.0-35.0); Mean Corpuscular Volume 90.8 fL (81-100); NEUTROPHILS % (AUTO) 41.9 % (40-74); Platelet Count 252 bil/L (150-400)
[2016-11-11] MEDS: Ketorolac 15 mg/mL Inj IVPUSH PRN ×2 (05:18→20:06)
[2016-11-11 05:23] VITALS: BP 128/77; PULSE 71; RESP 16; O2SAT 96
[2016-11-11] MEDS: CYCLOSPORINE EYE BOTH_EYES SCH ×2 (08:13→20:40)
[2016-11-11] MEDS: Fluticasone 0.05% 15 Spray/2 Gm 16 Gm Nasal Spray NASAL SCH (08:15)
[2016-11-11] MEDS: Timolol 0.5% 5 mL Ophthalmic Solution RIGHT_EYE SCH (08:15)
[2016-11-11] MEDS: Lansoprazole 30 mg ODTablet PO SCH ×2 (08:16→20:40)
[2016-11-11] MEDS: LacriLube S.O.P. 3.5 Gm Ophthalmic Ointment BOTH_EYES SCH ×2 (08:20→20:39)
[2016-11-11 08:35] VITALS: BP 114/74; PULSE 71; RESP 16; O2SAT 96
--- NOTE | 2016-11-11 09:24 | PCM.PNMED ---
Subjective Date of Service Nov 11, 2016 Subjective Patient seen and examined. Feels he pain is there. Feels walk, would like to walk around. Vitals stable. Exam Vital Signs Vital Sign - Last Date Time Temp Pulse Resp B/P Pulse Ox O2 Delivery O2 Flow Rate FiO2 11/11/16 05:23 36.7 71 16 128/77 96 Room Air Intake and Output 11/10/16 11/10/16 11/11/16 Cumulative From/Thru 15:00 23:00 07:00 11/08/16 17:52 - 11/11/16 05:23 Intake Total 1711 ml 100 ml 7394 ml Output Total 1050 ml 1900 ml 5550 ml Balance 661 ml -1800 ml 1844 ml Intake Oral 840 ml 100 ml 2328 ml IV Total 871 ml 5066 ml Output Urine Total 1050 ml 1900 ml 5550 ml # Bowel Movements 1 2 3 Exam General: No acute distress, Neck: Limited range of motion due to previous surgeries. No jugular venous distension. No lymphadenopathy or thyromegaly. Cardiovascular: Regular rhythm,no murmurs, rubs, or gallops appreciated Pulmonary: Clear to auscultation bilaterally with no crackles, wheezes, or rhonchi. Normal respiratory effort with no use of accessory muscles. Abdomen: Bowel tones present. Some tenderness to deep palpation epigastric area. No hepatosplenomegaly or masses appreciated. Skin: Normal temperature, turgor, and texture; no rash, ulcers, or subcutaneous nodules appreciated. Neurological: Cranial nerves grossly intact. Normal muscle strength, tone, and bulk. Reflexes, coordination, and sensory function within normal limits. No known gait impairment Lab and Diagnostics Result Diagram: 11/11/16 04511/11/16 0450 X-Rays, CTs and MRIs CT ABDOMEN AND PELVIS WITH CONTRAST IMPRESSION: 1. 6 mm stone in the left UPJ causing moderate left-sided hydronephrosis stable compared to prior CT scans. 5 mm stone noted in the left UVJ is causing mild left-sided hydroureter. 2. Small, bilateral nonobstructing cortical renal stones. 3. Intrahepatic and extrahepatic biliary dilatation which has progressed in the interval since the prior CT scans. Recommend correlation with laboratory data to exclude though obstruction. 4. Pancreatic duct at dilatation with slight heterogeneous enhancement and hypoattenuation of the uncinate process of the pancreas. Underlying pancreatic neoplasm cannot be excluded. Recommend dedicated CT scan pancreatic protocol or MRI pancreatic protocol for further evaluation. 5. Postsurgical changes. 6. Severe fecal loading throughout colon. Please correlate with clinical data. Dictated by: Eden Cheung MD, PhD on 11/08/2016 at 19:49 Assessment & Plan Belinda Painting is a 66-year-old woman with past medical history significant for hypertension, fibromyalgia, IBS and frequent recurrent nephrolithiasis requiring surgery who presented to [facility] emergency department today from urgent care due to lower abdominal "grabbing pain"that began this morning. Nephrolithiasis with associated moderate chronic left-sided hydronephrosis and mild left-sided hydroureter, present on admission, resolving -Patient is status post urethroscopy, lithotripsy, basket extraction of calculus fragments, left urethral stent placement -Patient has also had multiple urinary tract infections -Review of outpatient urology records does not reveal any known etiology to patient's recurrent nephrolithiasis -Pain controlled after the procedure -No signs of UTI - urology on board Double duct sign on abdominal CT, noting biliary and pancreatic duct dilation, present on admission, ongoing -patient has had an extensive work up done in the past regarding this, her LFTs have trended down, MRCP noted, she needs an ERCP, however due [facility]discussed with Dr. Looney, [place] consult Chronic issues, present on admission, stable: Glaucoma s/p corneal transplant -Continue outpatient eyedrops Hypertension -Continue outpatient medications when patient is not nothing by mouth. GERD -Continue outpatient medications when patient is not nothing by mouth Fibromyalgia -home meds Anxiety/Depression -Continue outpatient medications CODE STATUS: Full code Patient is admitted under inpatient status with expected length of stay greater than 2 midnights due to severity of presenting symptoms, risk of adverse event, and complexity of treatment plan. VTE Prophylaxis: Sub-Q Heparin (Unfractionated) VTE Mechanical Devices: Intermittant Pneumatic CD Resuscitation Status: CPR: Attempt Resuscitation Time spent 35 mins Attila Salvador MD Nov 11, 2016 09:23
[2016-11-11] MEDS: oxyCODONE-Acetamin 5-325 mg Tablet PO PRN ×2 (09:52→17:01)
--- NOTE | 2016-11-11 12:36 | NUR ---
Social Work: Initial Assessment/Readiness for Discharge/Multi-Disciplinary Rounds D: EMR reviewed. Please see Initial Assessment linked to this note for more information. Pt is a 66 y/o female admitted for ureterolithiasis per H&P. Pt has a re-admit risk score of 4. SW met with pt at bedside to conduct initial assessment. Pt was alert and oriented x3. SW explained role and wrote phone number on white board. SW provided "Your Discharge Planning Checklist" and encouraged pt to contact SW for any discharge planning questions. Pt's insurance is [employer] and [employer]. PCP is Kei Mcfarlane MD. Pt does not have TERRANCE. Pt stated she is interested in TERRANCE in the future but not now. SW provided information packet on the TERRANCE application process. DPOA/advanced directive ppw discussed - pt states she provided a copy to the hospital during her last hospitalization. Per rounds, pt is likely to discharge home today pending Urology. SW asked if pt had any concerns about discharging home today - pt declined concerns. A: KRISTY assessed pt's capacity for self-care. SW does not have any concerns for pt's capacity for self-care. Pt is independent at baseline. P: Pt likely to discharge today pending Urology. Pt states her sister/DPOA will provide transport home via POV when ready. SW will continue to follow for needs or MD orders. MERLENE Baires Addendum: 11/11/16 at 1241 by LUKE HODGES SS Amended: Links added.
[2016-11-11] MEDS ORDERED: KETO10TA PO (13:21)
--- NOTE | 2016-11-11 13:22 | PCM.DIMED ---
Discharge Instructions Date of Service Nov 11, 2016 Dates of Hospitalization Nov 08, 2016 at 21:26 Discharge Diagnosis Discharge Diagnosis Nephrolithiasis Diet Discharge Diet: Heart Healthy Activity Discharge Activity: No restrictions Call your provider Call your provider for: Fever or Chills, Bleeding, Weakness (unilateral) Patient Instructions Follow-up plan Follow up with primary GI at for ERCP. Follow-up with PCP in: 1 week Provider: Eden Jarvis MD Follow-up in: Other (11/11, 1:45pm check in at [facility] ) Attila Salvador MD Nov 11, 2016 13:22
[2016-11-11] MEDS ORDERED: BO60S RECTAL (13:30)
--- NOTE | 2016-11-11 13:32 | PCM.DC.MED ---
Discharge Summary Date of Service Nov 11, 2016 Dates of Hospitalization Date of Hospital Admission Nov 08, 2016 at 21:26 Date of Discharge: Nov 11, 2016 Providers: Admitting Physician: Ashley Rice DO Primary Care Physician: Kei Mcfarlane MD Attending Physician: Nicolas Hopkins MD Diagnosis at Time of Discharge Diagnosis at Time of Discharge Nephrolithiasis Procedures XRay, CTs & MRIs CT ABDOMEN AND PELVIS WITH CONTRAST IMPRESSION: 1. 6 mm stone in the left UPJ causing moderate left-sided hydronephrosis stable compared to prior CT scans. 5 mm stone noted in the left UVJ is causing mild left-sided hydroureter. 2. Small, bilateral nonobstructing cortical renal stones. 3. Intrahepatic and extrahepatic biliary dilatation which has progressed in the interval since the prior CT scans. Recommend correlation with laboratory data to exclude though obstruction. 4. Pancreatic duct at dilatation with slight heterogeneous enhancement and hypoattenuation of the uncinate process of the pancreas. Underlying pancreatic neoplasm cannot be excluded. Recommend dedicated CT scan pancreatic protocol or MRI pancreatic protocol for further evaluation. 5. Postsurgical changes. 6. Severe fecal loading throughout colon. Please correlate with clinical data. Dictated by: Eden Cheung MD, PhD on 11/08/2016 at 19:49 Brief History Belinda Painting is a 66-year-old woman with past medical history significant for hypertension, fibromyalgia, IBS and frequent recurrent nephrolithiasis requiring surgery who presented to [facility] emergency department today from urgent care due to lower abdominal "grabbing pain"that began this morning. She noted that the pain started in her back and her left flank and radiates down into her groin. She denies any fevers or chills. She notes some urinating, hematuria with some associated dizziness and nausea without any vomiting. Patient has had multiple episodes of kidney stones and states that her current pain is similar to that. Patient has a fentanyl patch normally due to chronic pain associated with fibromyalgia as well as cervical spine fusion with some failed screws. Patient has not received much of her home pain medications right now and feels that she is in terrible 10/10 pain. Patient attempted to take some Pyridium at home to see if this would alleviate her pain but this did not help. Patient also notes some mild to moderate right upper quadrant pain for the last month. Patient has noted intermittent cramping pain in that region but is not associated with anything. Usually lasts for several minutes and then goes away. Patient is status post cholecystectomy. She denies any recent weight loss or vomiting. In the Emergency department her vital signs were stable. CT revealed moderate left-sided hydronephrosis secondary to 6 mm stone in the left UPJ as well as a mild left-sided hydroureter multiple kidney stones noted. ED physician contacted Dr. Jarvis the on-call urologist was kindly agreed to see the patient in consult tomorrow and likely proceed with the procedure tomorrow. Hospital Course Belinda Painting is a 66-year-old woman with past medical history significant for hypertension, fibromyalgia, IBS and frequent recurrent nephrolithiasis requiring surgery who presented to [facility] emergency department today from urgent care due to lower abdominal "grabbing pain"that began this morning. Nephrolithiasis with associated moderate chronic left-sided hydronephrosis and mild left-sided hydroureter, present on admission, resolving -Patient is status post urethroscopy, lithotripsy, basket extraction of calculus fragments, left urethral stent placement -Patient has also had multiple urinary tract infections -Review of outpatient urology records does not reveal any known etiology to patient's recurrent nephrolithiasis -Pain controlled after the procedure -No signs of UTI - urology saw the patient, outpatient follow up Double duct sign on abdominal CT, noting biliary and pancreatic duct dilation, present on admission, ongoing -patient has had an extensive work up done in the past regarding this, her LFTs have trended down, MRCP noted, she needs an ERCP, however due to her gastric bypass, that will be possible at or [facility] -discussed with Dr. Looney, liza [place] consult Chronic issues, present on admission, stable: Glaucoma s/p corneal transplant -Continue outpatient eyedrops Hypertension -Continue outpatient medications when patient is not nothing by mouth. GERD -Continue outpatient medications when patient is not nothing by mouth Fibromyalgia -home meds Anxiety/Depression -Continue outpatient medications CODE STATUS: Full code Exam Vital Signs (Last) Date Time Temp Pulse Resp B/P Pulse Ox O2 Delivery O2 Flow Rate FiO2 11/11/16 08:35 36.9 71 16 114/74 96 Room Air Test 11/08/16 18:30 11/08/16 19:09 11/09/16 05:41 11/10/16 16:00 Prothrombin Time 9.7sec (8.1-12.5) Prothromb Time International Ratio 0.91ratio Lactic Acid Level 0.6mmol/L (0.4-2.0) Magnesium Level 2.5mg/dL (1.6-2.6) Lipase 28U/L (13-60) Urine Color [place] (YELLOW) Urine Appearance Hazy (CLEAR,HAZY) Urine pH (5.0-8.0) Urine Specific [place] 1.020 (1.003-1.035) Urine Protein mg/dL (NEG,TRACE) Urine Glucose (UA) mg/dL (NEGATIVE) Urine Ketones mg/dL (NEGATIVE) Urine Occult Blood (NEGATIVE) Urine Nitrite (NEGATIVE) Urine Bilirubin (NEGATIVE) Urine Urobilinogen mg/dL (NORMAL) Urine Leukocyte Esterase (NEGATIVE) Urine RBC >50/hpf (0-2) Urine WBC 0-5/hpf (0-5) Urine Epithelial Cells Occasional/hpf (NONE-MOD) Urine Crystals Oxalic acid crystals (NONE Urine Bacteria Few/hpf (NONE-FEW) Urine Hyaline Casts None/lpf (NONE) Urine Granular Casts None seen (NONE SEEN) Urine Waxy Casts None seen (NONE SEEN) Urine Red Blood Cell Casts None seen (NONE SEEN) Urine White Blood Cell Casts None seen (NONE SEEN) Urine Mucus Present (None Seen) Urine Trichomonas None seen (NONE SEEN) Urine Yeast None (NONE SEEN) Urinalysis Comment Color interference Urine Culture Reflexed Not indicated Procalcitonin 0.06ng/mL (0.00-0.08) Test 11/11/16 04:50 White Blood Count 6.2th/mm3 (3.8-10.1) Red Blood Count 3.57mil/mm3 (3.90-5.20) Hemoglobin 10.1g/dL (12.0-15.6) Hematocrit 32.4% (35.0-46.0) Mean Corpuscular Volume 90.8fL (81-100) Mean Corpuscular Hemoglobin 28.3pg (27.0-35.0) Mean Corpuscular Hemoglobin Concent 31.2% (32.0-37.0) Red Cell Distribution Width 13.6% (12.3-15.4) Platelet Count 252bil/L (150-400) Neutrophils (%) (Auto) 41.9% (40-74) Lymphocytes (%) (Auto) 37.5% (14-46) Monocytes (%) (Auto) 9.5% (4-12) Eosinophils (%) (Auto) 10.3% (0-5) Basophils (%) (Auto) 0.5% (0-3) Sodium Level 140mEq/L (134-144) Potassium Level 4.7mEq/L (3.5-5.2) Chloride Level 103mEq/L (97-108) Carbon Dioxide Level 26mmol/L (18-29) Blood Urea Nitrogen 17mg/dL (8-27) Creatinine 0.59mg/dL (0.57-1.00) Estimat Glomerular Filtration Rate 146mL/min (>59) Glucose Level 86mg/dL (60-99) Calcium Level 8.6mg/dL (8.5-10.1) Total Bilirubin 0.2mg/dL (0.0-1.2) Aspartate Amino Transf (AST/SGOT) 55U/L (0-50) Alanine Aminotransferase (ALT/SGPT) 63U/L (0-32) Alkaline Phosphatase 105U/L (25-165) Total Protein 5.5g/dL (6.4-8.4) Albumin 3.2g/dL (3.4-5.0) Discharge Medications Discharge Medications Amitriptyline (Amitriptyline) 10 Mg Tablet 30 MG PO HS (Reported) Aspirin (Aspirin) 325 Mg Tablet 325 MG PO HS (Reported) Bimatoprost (Lumigan) 45 Drop/2.5 Ml Ophsoln 1 DROP RIGHT_EYE HS (Reported) [place] Cit/Mag/D3/Zn/Installer Soft Top/Sunil/Bor (Citracal-Vit D + Magnesium Tab) 1 Each Tablet 1 EACH PO BID (Reported) Cholecalciferol (Vitamin D3) (Vitamin D) 1,000 Unit Capsule 5,000 UNIT PO DAILY (Reported) 5000IU DAILY IN WINTER; 2000IU DAILY IN SUMMER Cyanocobalamin/Cobamamide (Vitamin B-12 5,000 Mcg Tab Sl) 5,000 Mcg-100 Mcg Tab.subl 1 EACH SL DAILY (Reported) Cyclosporine (Restasis) 1 Each Droperette 1 DROP BOTH_EYES BID (Reported) O.O5% Docusate Sodium (Colace) 100 Mg Capsule 100-200 MG PO BID (Reported) Fentanyl 100 mcg/hr Patch (Fentanyl 100 mcg/hr Patch) 1 Each Patch.td72 1 PATCH TRANSDERM 48H (Reported) 37.5MCG/H Flaxseed Oil ([place]-3 Flaxseed Oil) 1,000 Mg Capsule 1,000 MG PO BID (Reported) Fluoxetine (Fluoxetine) 60 Mg Tablet 60 MG PO DAILY (Reported) Fluticasone Propionate (Fluticasone Propionate Nasal) 16 Gm [place].susp 2 SPRAY NS QAM (Reported) Gluc/Pablo-MSM#1/Vit C/Sunil/Bor (Nycmdeu-Pyblk-EMV Complex Cplt) 1 Each Tablet 1 EACH PO BID (Reported) Lactobacillus Acidophilus (Probiotic) 1 Each Capsule 1 EACH PO DAILY (Reported) Lansoprazole (Lansoprazole) 30 Mg Capsule.dr 30 MG PO BID (Reported) Multivitamin (Multi Vitamin Daily) 1 Each Tablet 1 EACH PO DAILY (Reported) Naproxen Sodium (Aleve) 220 Mg Capsule 220 MG PO BID (Reported) [place]-3 Fatty Acids/Fish Oil ([place] 3 Fish Oil Softgel) 1 Each Capsule.dr 1 EACH PO DAILY (Reported) Parsley/Garlic (Garlic & Parsley Tablet) 1 Each Tablet 1 EACH PO BID (Reported) Polyvinyl Alcohol/Povidone/Pf (Refresh Classic Eye Drops) 1 Each Droperette 1 EACH BOTH_EYES BID (Reported) Timolol Maleate (Timolol Maleate) 5 Ml Drops 1 DROP RIGHT_EYE QAM (Reported) Tizanidine (Tizanidine) 4 Mg Capsule 4-8 MG PO HS (Reported) As needed Acetaminophen (Acetaminophen) 500 Mg Tablet 1,000 MG PO Q6H PRN PRN For Pain ( Reported) Belladonna Alkaloids/Opium (Belladonna-Opium 16.2-60 Supp) 60 Mg Supp 60 MG RECTAL Q4 PRN PRN For Spasm Prescribed by: NICOLAS HOPKINS MD Guaifenesin (Guaifenesin) 400 Mg Tablet 400 MG PO Q4H PRN PRN For Cough ( Reported) Ketorolac Tromethamine (Ketorolac Tromethamine) 10 Mg Tablet 10 MG PO TID PRN PRN For Pain Prescribed by: NICOLAS HOPKINS MD Loteprednol Etabonate (Lotemax) 5 Ml Drops.susp 1 GTT RIGHT_EYE BID PRN PRN POSTOP (Reported) Ondansetron (Zofran) 4 Mg Tablet 4-8 MG PO Q8H PRN PRN For Nausea (Reported) diphenhydrAMINE HCl (Benadryl) 25 Mg Capsule 25-50 MG PO Q4 PRN PRN For Itching (Reported) oxyCODONE (oxyCODONE) 5 Mg Tablet 5-10 MG PO Q4H PRN PRN For Pain (Reported) Followup Plan Follow-up plan Follow up with primary GI at for ERCP. Discharge Diet: Heart Healthy Discharge Activity: No restrictions Follow-up with PCP in: 1 week Provider: Eden Jarvis MD Follow-up in: Other (November, 2pm check in at [facility] ) Nicolas Hopkins MD Nov 11, 2016 13:32
[2016-11-11 13:39] VITALS: BP 133/75; PULSE 94; RESP 18; O2SAT 97
--- NOTE | 2016-11-11 14:14 | NUR ---
Clarification of Dr Jarvis/Urology Note Spoke with Millie at Dr Jarvis's office re: Dr Jarvis's note and requested clarification as to whether another procedure would need to be done in the hospital before pt could discharge to home and be seen as an outpatient for procedure in his office. Millie confirmed that pt would be seen as outpatient for procedure over in their office, she scheduled the pt to f/u with Sheridan Ponce in their office 11/21 with a check in time of 2pm and an appointment time of 2:15pm in the [facility]. Millie stated that Dr Jarvis's last day in clinic is that day and that he was retiring and that they are telling pt's and they would tell the pt in clinic that day. Will let MD Vargas Team know; care ongoing.
--- NOTE | 2016-11-11 14:18 | NUR ---
Social Work: Discharge D: EMR reviewed. Pt is on day 3 of hospitalization. Per rounds, pt to discharge pending Urology. Urology has cleared pt to go home, no needs identified. A: SW assessed pt's capacity for self-care. SW does not have any concerns for pt's capacity for self-care. Pt is independent at baseline. P: Pt to discharge home with her sister/DPOA via POV today. SW will continue to follow for needs or MD orders. MERLENE Baires
[2016-11-11 18:01] VITALS: BP 132/77; PULSE 84; RESP 17; O2SAT 97
[2016-11-11 20:05] VITALS: BP 125/72; PULSE 75; RESP 18; O2SAT 97
[2016-11-11] MEDS: Loteprednol Etabonate (Lotemax) RIGHT_EYE PRN (21:27)
[2016-11-12] MEDS: Heparin 5,000 Unit/mL Inj SUBQ SCH ×2 (00:44→09:11)
[2016-11-12] MEDS: HYDROmorphone 1 mg/mL Inj IVPUSH PRN (03:15)
[2016-11-12 05:30] VITALS: BP 131/74; PULSE 72; RESP 18; O2SAT 96
--- NOTE | 2016-11-12 05:50 | NUR ---
Planning to Discharge Today Patient is to discharge by 1200 PM because she has a urology appointment at [id number].[id number] throughout this shift with minimal abdominal pain.
[2016-11-12] MEDS: Timolol 0.5% 5 mL Ophthalmic Solution RIGHT_EYE SCH (08:10)
[2016-11-12] MEDS: Fluticasone 0.05% 15 Spray/2 Gm 16 Gm Nasal Spray NASAL SCH (08:11)
[2016-11-12] MEDS: CYCLOSPORINE EYE BOTH_EYES SCH (08:11)
[2016-11-12] MEDS: Loteprednol Etabonate (Lotemax) RIGHT_EYE PRN (08:12)
[2016-11-12] MEDS: LacriLube S.O.P. 3.5 Gm Ophthalmic Ointment BOTH_EYES SCH (08:13)
[2016-11-12] MEDS: Lansoprazole 30 mg ODTablet PO SCH (08:13)
[2016-11-12] MEDS: oxyCODONE-Acetamin 5-325 mg Tablet PO PRN ×2 (09:11→10:47)
--- NOTE | 2016-11-12 11:40 | PCM.DC.MED ---
Discharge Summary Date of Service Nov 12, 2016 Dates of Hospitalization Date of Hospital Admission Nov 08, 2016 at 21:26 Date of Discharge: Nov 11, 2016 Providers: Admitting Physician: Ashley Rice DO Primary Care Physician: Kei Mcfarlane MD Attending Physician: Denise Juárez DO Diagnosis at Time of Discharge Diagnosis at Time of Discharge L sided hydronephrosis due to distal obstructing ureteral (UPJ) stone, L proximal ureteral stone (UVJ), Nephrolithiasis , HTN, Fibromyalgia Consultations Urology, GI, PT/OT Procedures XRay, CTs & MRIs CT ABDOMEN AND PELVIS WITH CONTRAST IMPRESSION: 1. 6 mm stone in the left UPJ causing moderate left-sided hydronephrosis stable compared to prior CT scans. 5 mm stone noted in the left UVJ is causing mild left-sided hydroureter. 2. Small, bilateral nonobstructing cortical renal stones. 3. Intrahepatic and extrahepatic biliary dilatation which has progressed in the interval since the prior CT scans. Recommend correlation with laboratory data to exclude though obstruction. 4. Pancreatic duct at dilatation with slight heterogeneous enhancement and hypoattenuation of the uncinate process of the pancreas. Underlying pancreatic neoplasm cannot be excluded. Recommend dedicated CT scan pancreatic protocol or MRI pancreatic protocol for further evaluation. 5. Postsurgical changes. 6. Severe fecal loading throughout colon. Please correlate with clinical data. Dictated by: Eden Cheung MD, PhD on 11/08/2016 at 19:49 Invasive Procedures 11/10/16 Stone basketing, stent procedure by Dr. Jarvis, urology Brief History Belinda Painting is a 66-year-old woman with past medical history significant for hypertension, fibromyalgia, IBS and frequent recurrent nephrolithiasis requiring surgery who presented to [facility] emergency department today from urgent care due to lower abdominal "grabbing pain"that began this morning. She noted that the pain started in her back and her left flank and radiates down into her groin. She denies any fevers or chills. She notes some urinating, hematuria with some associated dizziness and nausea without any vomiting. Patient has had multiple episodes of kidney stones and states that her current pain is similar to that. Patient has a fentanyl patch normally due to chronic pain associated with fibromyalgia as well as cervical spine fusion with some failed screws. Patient has not received much of her home pain medications right now and feels that she is in terrible 10/10 pain. Patient attempted to take some Pyridium at home to see if this would alleviate her pain but this did not help. Patient also notes some mild to moderate right upper quadrant pain for the last month. Patient has noted intermittent cramping pain in that region but is not associated with anything. Usually lasts for several minutes and then goes away. Patient is status post cholecystectomy. She denies any recent weight loss or vomiting. In the Emergency department her vital signs were stable. CT revealed moderate left-sided hydronephrosis secondary to 6 mm stone in the left UPJ as well as a mild left-sided hydroureter multiple kidney stones noted. ED physician contacted Dr. Jarvis the on-call urologist was kindly agreed to see the patient in consult tomorrow and likely proceed with the procedure tomorrow. Hospital Course Belinda Painting is a 66-year-old woman with past medical history significant for hypertension, fibromyalgia, IBS and frequent recurrent nephrolithiasis requiring surgery who presented to [facility] emergency department today from urgent care due to lower abdominal "grabbing pain"that began this morning. Ureterolithiasis with associated moderate chronic left-sided hydronephrosis and mild left-sided hydroureter, present on admission, improving -Patient is status post urethroscopy, lithotripsy, basket extraction of calculus fragments, left urethral stent placement -Patient has also had multiple urinary tract infections -Pain controlled after the procedure -No signs of UTI - urology saw the patient, outpatient follow up on 11/12 as previously scheduled following d/c Double duct sign on abdominal CT, noting biliary and pancreatic duct dilation, present on admission, ongoing -patient has had an extensive work up done in the past regarding this, her LFTs have trended down, MRCP noted, she needs an ERCP, however due to her gastric bypass, that will only be possible at or [facility] -F/U in one week with the advanced centers -Per Dr. Hopkins: "discussed with Dr. Looney, appreciate curbside consult" Chronic issues, present on admission, stable: Glaucoma s/p corneal transplant -Continue outpatient eyedrops Hypertension -Continue outpatient medications GERD -Continue outpatient medications Fibromyalgia -home meds Anxiety/Depression chronic active -Continue outpatient medications - Patient is endorsing increased feelings of tiredness, which could be bacuse of depression or cardiac reasons. --We recommend that the PCP considers an Echocardiogram and also considers adjusting her depression meds --PT/OT was consulted, they recommend "PT recommending patient D/C to home with continuation of outpatient PT once MD feels appropriate." Because of patient's planned urological procedures, we recommend that patient starts outpatient PT via PCP after she completes her urological lithotripsy procedure. CODE STATUS: Full code Exam Vital Signs (Last) Date Time Temp Pulse Resp B/P Pulse Ox O2 Delivery O2 Flow Rate FiO2 11/12/16 05:30 36.5 72 18 131/74 96 Room Air Exam General: No acute distress, Neck: Limited range of motion due to previous surgeries. No jugular venous distension. No lymphadenopathy or thyromegaly. Cardiovascular: Regular rhythm,no murmurs, rubs, or gallops appreciated Pulmonary: Clear to auscultation bilaterally with no crackles, wheezes, or rhonchi. Normal respiratory effort with no use of accessory muscles. Abdomen: Bowel tones present. Non tender to palpation when she was distracted. No hepatosplenomegaly or masses appreciated. Skin: Normal temperature, turgor, and texture; no rash, ulcers, or subcutaneous nodules appreciated. Neurological: No focal deficits Test 11/08/16 18:30 11/08/16 19:09 11/09/16 05:41 11/10/16 16:00 Prothrombin Time 9.7sec (8.1-12.5) Prothromb Time International Ratio 0.91ratio Lactic Acid Level 0.6mmol/L (0.4-2.0) Magnesium Level 2.5mg/dL (1.6-2.6) Lipase 28U/L (13-60) Urine Color [place] (YELLOW) Urine Appearance Hazy (CLEAR,HAZY) Urine pH (5.0-8.0) Urine Specific [place] 1.020 (1.003-1.035) Urine Protein mg/dL (NEG,TRACE) Urine Glucose (UA) mg/dL (NEGATIVE) Urine Ketones mg/dL (NEGATIVE) Urine Occult Blood (NEGATIVE) Urine Nitrite (NEGATIVE) Urine Bilirubin (NEGATIVE) Urine Urobilinogen mg/dL (NORMAL) Urine Leukocyte Esterase (NEGATIVE) Urine RBC >50/hpf (0-2) Urine WBC 0-5/hpf (0-5) Urine Epithelial Cells Occasional/hpf (NONE-MOD) Urine Crystals Oxalic acid crystals (NONE Urine Bacteria Few/hpf (NONE-FEW) Urine Hyaline Casts None/lpf (NONE) Urine Granular Casts None seen (NONE SEEN) Urine Waxy Casts None seen (NONE SEEN) Urine Red Blood Cell Casts None seen (NONE SEEN) Urine White Blood Cell Casts None seen (NONE SEEN) Urine Mucus Present (None Seen) Urine Trichomonas None seen (NONE SEEN) Urine Yeast None (NONE SEEN) Urinalysis Comment Color interference Urine Culture Reflexed Not indicated Procalcitonin 0.06ng/mL (0.00-0.08) Test 11/11/16 04:50 White Blood Count 6.2th/mm3 (3.8-10.1) Red Blood Count 3.57mil/mm3 (3.90-5.20) Hemoglobin 10.1g/dL (12.0-15.6) Hematocrit 32.4% (35.0-46.0) Mean Corpuscular Volume 90.8fL (81-100) Mean Corpuscular Hemoglobin 28.3pg (27.0-35.0) Mean Corpuscular Hemoglobin Concent 31.2% (32.0-37.0) Red Cell Distribution Width 13.6% (12.3-15.4) Platelet Count 252bil/L (150-400) Neutrophils (%) (Auto) 41.9% (40-74) Lymphocytes (%) (Auto) 37.5% (14-46) Monocytes (%) (Auto) 9.5% (4-12) Eosinophils (%) (Auto) 10.3% (0-5) Basophils (%) (Auto) 0.5% (0-3) Sodium Level 140mEq/L (134-144) Potassium Level 4.7mEq/L (3.5-5.2) Chloride Level 103mEq/L (97-108) Carbon Dioxide Level 26mmol/L (18-29) Blood Urea Nitrogen 17mg/dL (8-27) Creatinine 0.59mg/dL (0.57-1.00) Estimat Glomerular Filtration Rate 146mL/min (>59) Glucose Level 86mg/dL (60-99) Calcium Level 8.6mg/dL (8.5-10.1) Total Bilirubin 0.2mg/dL (0.0-1.2) Aspartate Amino Transf (AST/SGOT) 55U/L (0-50) Alanine Aminotransferase (ALT/SGPT) 63U/L (0-32) Alkaline Phosphatase 105U/L (25-165) Total Protein 5.5g/dL (6.4-8.4) Albumin 3.2g/dL (3.4-5.0) Discharge Medications Discharge Medications Amitriptyline (Amitriptyline) 10 Mg Tablet 30 MG PO HS (Reported) Aspirin (Aspirin) 325 Mg Tablet 325 MG PO HS (Reported) Bimatoprost (Lumigan) 45 Drop/2.5 Ml Ophsoln 1 DROP RIGHT_EYE HS (Reported) [place] Cit/Mag/D3/Zn/Receivables Specialist/Sunil/Bor (Citracal-Vit D + Magnesium Tab) 1 Each Tablet 1 EACH PO BID (Reported) Cholecalciferol (Vitamin D3) (Vitamin D) 1,000 Unit Capsule 5,000 UNIT PO DAILY (Reported) 5000IU DAILY IN WINTER; 2000IU DAILY IN SUMMER Cyanocobalamin/Cobamamide (Vitamin B-12 5,000 Mcg Tab Sl) 5,000 Mcg-100 Mcg Tab.subl 1 EACH SL DAILY (Reported) Cyclosporine (Restasis) 1 Each Droperette 1 DROP BOTH_EYES BID (Reported) O.O5% Docusate Sodium (Colace) 100 Mg Capsule 100-200 MG PO BID (Reported) Fentanyl 100 mcg/hr Patch (Fentanyl 100 mcg/hr Patch) 1 Each Patch.td72 1 PATCH TRANSDERM 48H (Reported) 37.5MCG/H Flaxseed Oil ([place]-3 Flaxseed Oil) 1,000 Mg Capsule 1,000 MG PO BID (Reported) Fluoxetine (Fluoxetine) 60 Mg Tablet 60 MG PO DAILY (Reported) Fluticasone Propionate (Fluticasone Propionate Nasal) 16 Gm [place].susp 2 SPRAY NS QAM (Reported) Gluc/Pablo-MSM#1/Vit C/Sunil/Bor (Cedhnvh-Mmdxx-NGV Complex Cplt) 1 Each Tablet 1 EACH PO BID (Reported) Lactobacillus Acidophilus (Probiotic) 1 Each Capsule 1 EACH PO DAILY (Reported) Lansoprazole (Lansoprazole) 30 Mg Capsule.dr 30 MG PO BID (Reported) Multivitamin (Multi Vitamin Daily) 1 Each Tablet 1 EACH PO DAILY (Reported) Naproxen Sodium (Aleve) 220 Mg Capsule 220 MG PO BID (Reported) [place]-3 Fatty Acids/Fish Oil ([place] 3 Fish Oil Softgel) 1 Each Capsule.dr 1 EACH PO DAILY (Reported) Parsley/Garlic (Garlic & Parsley Tablet) 1 Each Tablet 1 EACH PO BID (Reported) Polyvinyl Alcohol/Povidone/Pf (Refresh Classic Eye Drops) 1 Each Droperette 1 EACH BOTH_EYES BID (Reported) Timolol Maleate (Timolol Maleate) 5 Ml Drops 1 DROP RIGHT_EYE QAM (Reported) Tizanidine (Tizanidine) 4 Mg Capsule 4-8 MG PO HS (Reported) As needed Acetaminophen (Acetaminophen) 500 Mg Tablet 1,000 MG PO Q6H PRN PRN For Pain ( Reported) Belladonna Alkaloids/Opium (Belladonna-Opium 16.2-60 Supp) 60 Mg Supp 60 MG RECTAL Q4 PRN PRN For Spasm Prescribed by: NICOLAS HOPKINS MD Guaifenesin (Guaifenesin) 400 Mg Tablet 400 MG PO Q4H PRN PRN For Cough ( Reported) Ketorolac Tromethamine (Ketorolac Tromethamine) 10 Mg Tablet 10 MG PO TID PRN PRN For Pain Prescribed by: NICOLAS HOPKINS MD Loteprednol Etabonate (Lotemax) 5 Ml Drops.susp 1 GTT RIGHT_EYE BID PRN PRN POSTOP (Reported) Ondansetron (Zofran) 4 Mg Tablet 4-8 MG PO Q8H PRN PRN For Nausea (Reported) diphenhydrAMINE HCl (Benadryl) 25 Mg Capsule 25-50 MG PO Q4 PRN PRN For Itching (Reported) oxyCODONE (oxyCODONE) 5 Mg Tablet 5-10 MG PO Q4H PRN PRN For Pain (Reported) Followup Plan Follow-up plan Follow up with primary GI at for ERCP. Discharge Diet: Heart Healthy Discharge Activity: No restrictions Follow-up with PCP in: 1 week Provider: Eden Jarvis MD Follow-up in: Other (11/11, 1:45pm check in at [facility] ) Time spent Greater than 30 minutes was spent in preparation of discharge with greater than 50% of that time dedicated to patient counseling and coordination of care. . Denise Juárez DO Nov 12, 2016 11:40
--- NOTE | 2016-11-12 16:15 | NUR ---
Discharge note- Patient complained of pain during urination and in her back. Ordered pain meds given with relief. Patient ambulated in hallway with PT prior to discharge and tolerated activity well. Discharged to home with family and personal belongings.
[2016-11-18 08:11] LABS: Stone Color Brown (.)
== END 2016-11-12 12:52 | disposition home or self-care (01) | DRG 669 ==
LOC: SED 17:39 → OSC 21:26
PROVIDERS: ADMIT Internal Medicine; ATTEND Internal Medicine
PROC: 0T9780Z Drainage of Left Ureter with Drainage Device, Via Natural or Artificial Opening Endoscopic (ICD-10-PCS; 2016-11-09)
PROC: 0TC78ZZ Extirpation of Matter from Left Ureter, Via Natural or Artificial Opening Endoscopic (ICD-10-PCS; principal; 2016-11-09 11:00)
DX: N13.2 Hydronephrosis with renal and ureteral calculous obstruction (principal); I10 Essential (primary) hypertension; M79.7 Fibromyalgia; H40.9 Unspecified glaucoma; K21.9 Gastro-esophageal reflux disease without esophagitis; F41.8 Other specified anxiety disorders

== ENCOUNTER 2016-11-15 08:36 | Day surgery (SDC) | payer MEDICARE, MEDICAID ==
[2016-11-15] VITALS (14 sets, daily range): BP systolic 127–164; BP diastolic 61–91; PULSE 16–96; RESP 15–21; O2SAT 90–99
[~2016-11-15] VITALS: Ht 147.3 cm; Wt 76.1 kg
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
[~2016-11-15 08:36] MED LIST changes: -ASCO100089 PO; -ASCO500C6 PO; +ASPI325T32 PO; +BO60S RECTAL; -CALC-243 PO; -CIPR-198 PO; +CYAN1TAB65 SL; +Dexamethasone 4 mg/mL Inj IVPUSH PRN; +EPHEDrine Sulfate 50 mg/mL Inj IVPUSH PRN; -ESTR42.52 VAGINAL; -FLUC150T48 PO; +KETO10TA PO; +Lactated Ringer's 1,000 ML IV SCH; +Lactated Ringer's 500 ML IV PRN; +Levofloxacin 500 mg/100 mL D5W IV ONE; -NYST1000 PO; -NYST60PO TP; +Ondansetron 2 mg/mL 2 mL Inj IVPUSH PRN; +POLY1DRO BOTH_EYES; +Phenylephrine 10,000 mCg/mL Inj IVPUSH PRN; -REFRESH OPTIVE OU; -TAMS0.4C98 PO; -Vitamin B12 SL; -[UNRECOGNIZED DRUG - OTHER] PO; +fentaNYL-PF 50 mCg/mL 2 mL Inj IVPUSH PRN
[2016-11-15] MEDS ORDERED: Propofol 10,000 mCg/mL 20 mL Inj ONE (08:37)
[2016-11-15] MEDS ORDERED: fentaNYL-PF 50 mCg/mL 2 mL Inj ONE ×2 (08:37→12:20)
[2016-11-15] MEDS ORDERED: Ondansetron 2 mg/mL 2 mL Inj ONE (08:37)
[2016-11-15] MEDS ORDERED: Ketamine 10 mg/mL 20 mL Inj ONE (08:37)
[2016-11-15] MEDS ORDERED: Dexamethasone 4 mg/mL Inj ONE (08:37)
[2016-11-15] MEDS: Lactated Ringer's 1,000 ML IV SCH ×2 (08:47→09:32)
[2016-11-15] MEDS ORDERED: Iopamidol-300 50 mL Inj IV ONE (09:32)
[2016-11-15] MEDS ORDERED: Belladonna Alk-Opium 60 mg Rectal Suppository RECTAL ONE (11:09)
[2016-11-15] MEDS ORDERED: HYDROcodone-APAP 5-325 mg Tablet PO PRN (11:20)
[2016-11-15] MEDS ORDERED: Phenazopyridine 97.5 mg Tablet PO PRN (11:20)
[2016-11-15] MEDS ORDERED: Ondansetron 8 mg ODT Tablet PO PRN (11:20)
[2016-11-15] MEDS ORDERED: Lactated Ringer's 1,000 ML IV ONE (11:30)
[2016-11-15] MEDS: HYDROmorphone 1 mg/mL Inj IVPUSH PRN ×3 (11:46→12:30)
[2016-11-15] MEDS ORDERED: Ketorolac 15 mg/mL Inj ONE (11:52)
[2016-11-15] MEDS ORDERED: Ketorolac 15 mg/mL Inj IVPUSH ONE (12:05)
[2016-11-15] MEDS ORDERED: fentaNYL-PF 50 mCg/mL 2 mL Inj IVPUSH PRN (12:35)
--- NOTE | 2016-11-15 12:42 | PCM.ANEP1 ---
Post Anesthesia PACU Phase 1 Assessment Vital Signs Vital Signs Date Time Temp Pulse Resp B/P Pulse Ox O2 Delivery O2 Flow Rate FiO2 11/15/16 12:30 37.1 84 18 142/61 98 Nasal Cannula 3 11/15/16 12:15 85 17 161/84 99 Nasal Cannula 3 11/15/16 12:03 81 15 164/75 99 Nasal Cannula 3 11/15/16 11:47 77 16 152/91 99 Nasal Cannula 3 11/15/16 11:32 77 17 153/78 98 Nasal Cannula 3 11/15/16 11:25 78 21 143/81 98 Nasal Cannula 3 11/15/16 11:20 76 16 144/79 96 Nasal Cannula 3 11/15/16 11:16 36.4 76 16 147/70 98 Nasal Cannula 3 11/15/16 09:13 CPAP/BIPAP 11/15/16 09:11 36.6 88 16 127/86 96 Room Air Anesthetic Administered: GA Level of Alertness: Awake, talking Pain: Yes Pain Scale Score: 8 Nausea or Vomiting: No CV Function & Hydration Stable: Yes Airway Device: Oralpharangeal Airway Oxygen Delivery: Nasal Cannula Lungs: Clear to Auscultation, Normal Air Movement PACU Phase 2 Assessment Complications: No Follow up Care: No Patient Instructions Provided: N/A Moi Blancas MD Nov 15, 2016 12:42
[2016-11-15 13:16] LABS: APPEARANCE,URINE TURBID (CLEAR,HAZY); COLOR,URINE BLOODY (YELLOW); OCCULT BLOOD,URINE LARGE (NEGATIVE); UROBILINOGEN,URINE NORMAL (NORMAL)
--- NOTE | 2016-11-15 14:50 | DRSVH ---
PROCEDURE: X-RAY RETROGRADE UROGRAPHY INDICATIONS: STONE REMOVAL/STENT PLACEMENT TECHNIQUE: 4 intra-operative images acquired by the Urology service. COMPARISON: [facility], CT, CT ABD PELVIS W CON, 11/08/2016, 19:38. [facility], MR, MR ABD WO CON, 11/10/2016, 9:48. FINDINGS: Examination is limited to 4 submitted images as well as motion artifact. Within these wilson its, there appears to be several intraluminal filling defects within the renal pelvis which may be re lated to retained stones. There is moderate hydronephrosis. Ureteral stent was placed. IMPRESSION: 1. Limited exam demonstrating possible retained stones within the renal pelvis as well as moderate hy dronephrosis. 2. Ureteral stent placed. Dictated by: Brent TROTTER Interpreted: Clint Ramirez MD on 11/15/2016 at 13:38 Approved by: Clint Ramirez M.D. on 11/15/2016 at 14:47
--- NOTE | 2016-11-17 02:46 | OP ---
[address] [address] OPERATIVE REPORT PATIENT: RICK VAZQUEZ : 1950 MR#: [id number] ADMIT: 11/15/2016 JOB ID: [id number] DATE OF SURGERY: 11/15/2016 PROCEDURE: 1. Left-sided ureteroscopy. 2. Laser lithotripsy. 3. Basket stone extraction. 4. Retrograde pyelogram. 5. Left-sided double-J stent change, removal and replacement. ANESTHESIA: General. PREOPERATIVE DIAGNOSIS(ES): 1. Large proximal ureteral calculus. 2. Hematuria. POSTOPERATIVE DIAGNOSIS(ES): 1. Large proximal ureteral calculus. 2. Hematuria. SURGEON: Yeni Parrish MD INDICATIONS: The patient is a 66-year-old woman with multiple medical problems, including chronic pain issues and fibromyalgia, who had presented one week prior with an obstructing large proximal ureteral calculus, and also a UVJ stone of about 5 mm in size. She was brought to the operating room acutely at this time where the distal stone was dealt with. It was impossible to treat the proximal stone. She was stented and brought back today for definitive treatment. The patient noted gross hematuria throughout with a stent in place. The risks and benefits of treatment options were discussed. The stone was not visible on plain x-ray. Thus, ureteroscopic stone extraction was indicated. PROCEDURE IN DETAIL: After appropriate informed consent was obtained, the patient was brought to the operating room. She received IV antibiotics prior to the procedure. SCDs were placed. Adequate general anesthesia was induced. She was carefully placed in dorsal lithotomy position. All pressure points carefully padded. Cleaned, prepped, and draped in the usual sterile fashion. Rigid scope was introduced in the patient's bladder which was found to have definitive gross hematuria and some clots. This was irrigated out. Her bladder was actually noted to be clear. Emanation of clots was from her stented side. We passed a wire up through the distal end of the double-J stent which was grasped and brought to the meatus. This was under fluoroscopic guidance in good position in the patient's renal pelvis. Once again, we were unable to see the stone on plain x-ray, but this was clearly visible to be reasonably large size, approximately 1 cm in greatest dimension at the proximal ureter on CAT scan. When the wire was in good position, we performed retrograde pyelogram. We saw filling defects which represented either clots and/or stone up high. We used a dual-lumen catheter to pass a second wire up into the kidney. Then, we passed a 14-[place]izen [place] outer diameter short ureteral access sheath into the patient's ureter, and we switched over to the flexible ureteroscope which was passed up through the access sheath which slid up nicely. We encountered the expected clot which was quite tenacious and difficult to deal with. Initially, it was very difficult to find the location of the stone. However, once we had moved enough clot, we were actually able to find a large burden of the stone and this was treated. Several hardware supplies sales representative fragments were handed off for stone analysis. The remainder was all broken up or removed from the patient's bladder, were broken up to 1 mm size or less. The remainder of her kidney was cleared to the best of our ability as well. At termination of the procedure, we felt we had gotten out the largest burden of stone due to the patient's anatomy in the presence of this very tenacious clot. It is possible there is some smaller fragments that were unidentified. However, everything we could find we took. After this, we left the string off the stent. The ureter was cleared with removal of the flexible ureteroscope, and we backloaded the safety wire through the rigid scope and once again advanced a 6-[place]izen [place] x 22 cm double-J stent over the wire, through the scope into good position fluoroscopically with a curl in the renal pelvis and a curl in the patient's bladder. Her bladder was irrigated out copiously. String was left off. She was given a B and O suppository for postop pain control. Awakened, taken in stable condition to the postanesthesia care unit.
== END 2016-11-15 23:59 | disposition home or self-care (01) ==
LOC: SAS 08:36
PROVIDERS: ATTEND Urology
DX: N20.1 Calculus of ureter (principal); Z87.442 Personal history of urinary calculi; Z87.440 Personal history of urinary (tract) infections; K21.9 Gastro-esophageal reflux disease without esophagitis; Z98.84 Bariatric surgery status; M47.812 Spondylosis without myelopathy or radiculopathy, cervical region; M79.7 Fibromyalgia; I10 Essential (primary) hypertension
CPT/HCPCS: 52356; 74420; 81000; 87086; C2617; J1100; J1170; J1885; J2250; J2405; J3010; J7120; Q9967

== ENCOUNTER 2016-11-22 15:51 | Observation (INO) | payer MEDICARE, MEDICAID ==
[~2016-11-22] VITALS: Ht 147.3 cm; Wt 75.2 kg
[~2016-11-22 15:51] MED LIST changes: -BO60S RECTAL; -Dexamethasone 4 mg/mL Inj IVPUSH PRN; -EPHEDrine Sulfate 50 mg/mL Inj IVPUSH PRN; -KETO10TA PO; -Lactated Ringer's 1,000 ML IV SCH; -Lactated Ringer's 500 ML IV PRN; -Levofloxacin 500 mg/100 mL D5W IV ONE; -Ondansetron 2 mg/mL 2 mL Inj IVPUSH PRN; -Phenylephrine 10,000 mCg/mL Inj IVPUSH PRN; -fentaNYL-PF 50 mCg/mL 2 mL Inj IVPUSH PRN
[2016-11-22 15:53] VITALS: BP 152/89; PULSE 100; RESP 18; O2SAT 92
--- NOTE | 2016-11-22 16:23 | ED.REPORT ---
HPI-Abd Pain F 40 and Over Date of Service Nov 22, 2016 ED Provider: Ander Monge MD Patient is a 66 year old female with a history of hypertension, status post ureteral stents one week ago who presents to the ED complaining of lower abdominal pain onset three days ago. Associated symptoms include pain that radiates into the left flank, hematuria, nausea, a low grade fever yesterday and dysuria. She denies vomiting. The patient reports that her pain has been getting progressively worse. Patient reports that she has tried taking her Hydrocodone and her Fentanyl patch but it has not helped her pain. She also tried taking a Zofran at 1430 but is still nauseous. Nursing Notes Stated Complaint: BACK AND ABDOMINAL PAIN Chief Complaint: Female Abdominal Pain Nursing Notes Reviewed: Yes Allergies: Coded Allergies: TAPE (Verified Allergy, Severe, blisters (PAPER TAPE OK), 11/22/16) cefdinir (Verified Allergy, Severe, YELLOW EYES, GREEN STOOL, 11/22/16) cisapride (Verified Allergy, Severe, SEVERE DIARRHEA, 11/22/16) Macrolide Antibiotics (Verified Allergy, Unknown, UNKNOWN, 11/22/16) brimonidine (Unverified Allergy, Unknown, 11/22/16) ENTERED FROM UNCODED ALLERGIES chlorhexidine (Unverified Allergy, Unknown, 11/22/16) ENTERED FROM UNCODED ALLERGIES meperidine (Verified Allergy, Unknown, UNKNOWN, 11/22/16) miconazole (Unverified Allergy, Unknown, 11/22/16) ENTERED FROM UNCODED ALLERGIES polymyxin B (Verified Allergy, Unknown, UNKNOWN, 11/22/16) prochlorperazine (Verified Allergy, Unknown, UNKNOWN (PHENOTHIAZINES) , 11/22/16) erythromycin ethylsuccinate (Verified Adverse Reaction, Severe, cramping diarrhea, 11/22/16) gabapentin (Verified Adverse Reaction, Severe, ANXIETY/DEPRESSION, 11/22/16) metoclopramide (Verified Adverse Reaction, Severe, SEVERE TWITCHING, ) pregabalin (Verified Adverse Reaction, Severe, PERIPHERAL EDEMA, 11/22/16) propranolol (Verified Adverse Reaction, Severe, DIARRHEA, 11/22/16) tamsulosin (Verified Adverse Reaction, Severe, HYPOTENSION, 11/22/16) Uncoded Allergies: CHLOROPREP (Allergy, Severe, RED WELTS, 07/26/13) bee stings (Allergy, Unknown, UNKNOWN, 07/26/13) MICONAZOLE (Adverse Reaction, Severe, SWELLING/TOPICAL RASH, 07/26/13) BROMINDIONE (Adverse Reaction, Unknown, FOUND IN COMBIGAN EYE GTTS- REACTION UNKNOWN, 07/26/13) Scheduled Amitriptyline (Amitriptyline) 10 Mg Tablet 30 MG PO HS Aspirin (Aspirin) 325 Mg Tablet 325 MG PO HS Bimatoprost (Lumigan) 45 Drop/2.5 Ml Ophsoln 1 DROP RIGHT_EYE HS [place] Cit/Mag/D3/Zn/Medical Customer Service Representative/Sunil/Bor (Citracal-Vit D + Magnesium Tab) 1 Each Tablet 1 EACH PO BID Cholecalciferol (Vitamin D3) (Vitamin D) 1,000 Unit Capsule 5,000 UNIT PO DAILY 5000IU DAILY IN WINTER; 2000IU DAILY IN SUMMER Cyanocobalamin/Cobamamide (Vitamin B-12 5,000 Mcg Tab Sl) 5,000 Mcg-100 Mcg Tab.subl 1 EACH SL DAILY Cyclosporine (Restasis) 1 Each Droperette 1 DROP BOTH_EYES BID O.O5% Docusate Sodium (Colace) 100 Mg Capsule 100-200 MG PO BID Fentanyl 100 mcg/hr Patch (Fentanyl 100 mcg/hr Patch) 1 Each Patch.td72 1 PATCH TRANSDERM 48H 37.5MCG/H Flaxseed Oil ([place]-3 Flaxseed Oil) 1,000 Mg Capsule 1,000 MG PO BID Fluoxetine (Fluoxetine) 60 Mg Tablet 60 MG PO DAILY Fluticasone Propionate (Fluticasone Propionate Nasal) 16 Gm [place].susp 2 SPRAY NS QAM Gluc/Pablo-MSM#1/Vit C/Sunil/Bor (Gsinksy-Jdypm-UDX Complex Cplt) 1 Each Tablet 1 EACH PO BID Lactobacillus Acidophilus (Probiotic) 1 Each Capsule 1 EACH PO BID Lansoprazole (Lansoprazole) 30 Mg Capsule. 30 MG PO BID Multivitamin (Multi Vitamin Daily) 1 Each Tablet 1 EACH PO DAILY Naproxen Sodium (Aleve) 220 Mg Capsule 220 MG PO BID [place]-3 Fatty Acids/Fish Oil ([place] 3 Fish Oil Softgel) 1 Each Capsule. 1 EACH PO DAILY Parsley/Garlic (Garlic & Parsley Tablet) 1 Each Tablet 1 EACH PO BID Polyvinyl Alcohol/Povidone/Pf (Refresh Classic Eye Drops) 1 Each Droperette 1 EACH BOTH_EYES BID Timolol Maleate (Timolol Maleate) 5 Ml Drops 1 DROP RIGHT_EYE QAM Tizanidine (Tizanidine) 4 Mg Capsule 4-8 MG PO HS Scheduled PRN Acetaminophen (Acetaminophen) 500 Mg Tablet 1,000 MG PO Q6H PRN PRN For Pain Guaifenesin (Guaifenesin) 400 Mg Tablet 400 MG PO Q4H PRN PRN For Cough Loteprednol Etabonate (Lotemax) 5 Ml Drops.susp 1 GTT RIGHT_EYE BID PRN PRN POSTOP Ondansetron (Zofran) 4 Mg Tablet 4-8 MG PO Q8H PRN PRN For Nausea diphenhydrAMINE HCl (Benadryl) 25 Mg Capsule 25-50 MG PO Q4 PRN PRN For Itching oxyCODONE (oxyCODONE) 5 Mg Tablet 5-10 MG PO Q4H PRN PRN For Pain General Time Seen by MD: 16:22 Chief Complaint Abdominal pain Hx Obtained From: Patient Arrived By: Walk-in Sudden in Onset?: Yes Onset Occurred: 1 - 4 hours ago Context of Onset: Recent surgery Symptom Duration: Since onset Location: : Abdomen lower Quality: Cramping, Painful Radiation: : Flank left Severity: Current: Moderate Recent Healthcare: Recent doctor visit Similar Sx Previous: Yes Past Medical History Past Medical History Cataracts s/p bilateral extraction and macular "hole" repair Glaucoma s/p corneal transplant TIA GERD Hiatal Hernia s/p Leif fundoplication Mild IBS Nephrolithiasis s/p lithotripsy UTI Fibromyalgia Anxiety Depression Reports: Hypertension, Denies: Congestive heart failure Reports: Depression Past Surgical History Cervical fusion Fissures Appendectomy Gastric bypass surgery Right middle trigger release Excision of right middle finger flexor ganglion cyst Nasal surgery Tonsillectomy Cholecystectomy Leif fundoplication Bilateral cataract extraction and macular "hole" repair Corneal transplant Family History Reports: Cancer Smoking History Never Smoker Social History Other Social History: Good social support Ambulatory Status Walker Review of Systems Constitutional: Reports: Fever Respiratory: Denies: Non-productive cough GI: Reports: Abdominal pain, Nausea, Denies: Vomiting Female: Reports: Dysuria, Flank pain, Hematuria Complete sys rev & neg: except as marked. Skin: Denies Itching, Denies Rash Physical Exam Vital Signs Vital Signs (First) Date Time Temp Pulse Resp B/P Pulse Ox O2 Delivery O2 Flow Rate FiO2 11/22/16 15:53 36.6 100 18 152/89 92 Room Air Initial VS: Reviewed General/Constitutional: Awake, Alert Respiratory / Chest: Atraumatic, Breath sounds NL, Breath sounds = bilat, No respiratory distress Cardiovascular: Heart rate NL, Regular rhythm, Heart sounds NL Abdomen: Atraumatic, Soft left flank tenderness Head / Eyes: Atraumatic, Normocephalic, PERRL, EOMI Skin: Atraumatic, Color NL, No rash, Warm, Dry Neurologic: Oriented X3, Speech NL, No motor deficits, No sensory deficits Psychiatric: Affect NL, Mood NL Interpretation & Diagnostics Lab Results Interpretation Result Diagram: 11/22/16203411/22/162034 Test 11/22/16 20:35 11/22/16 20:40 White Blood Count 8.8th/mm3 (3.8-10.1) Red Blood Count 3.46mil/mm3 (3.90-5.20) Hemoglobin 10.1g/dL (12.0-15.6) Hematocrit 32.3% (35.0-46.0) Mean Corpuscular Volume 93.4fL (81-100) Mean Corpuscular Hemoglobin 29.2pg (27.0-35.0) Mean Corpuscular Hemoglobin Concent 31.3% (32.0-37.0) Red Cell Distribution Width 14.4% (12.3-15.4) Platelet Count 438bil/L (150-400) Neutrophils (%) (Auto) 65.6% (40-74) Lymphocytes (%) (Auto) 15.7% (14-46) Monocytes (%) (Auto) 10.3% (4-12) Eosinophils (%) (Auto) 7.7% (0-5) Basophils (%) (Auto) 0.6% (0-3) Sodium Level 140mEq/L (134-144) Potassium Level 4.3mEq/L (3.5-5.2) Chloride Level 102mEq/L (97-108) Carbon Dioxide Level 26mmol/L (18-29) Blood Urea Nitrogen 34mg/dL (8-27) Creatinine 0.88mg/dL (0.57-1.00) Estimat Glomerular Filtration Rate 92mL/min (>59) Glucose Level 123mg/dL (60-99) Calcium Level 9.0mg/dL (8.5-10.1) Magnesium Level 2.5mg/dL (1.6-2.6) Total Bilirubin 0.3mg/dL (0.0-1.2) Aspartate Amino Transf (AST/SGOT) 29U/L (0-50) Alanine Aminotransferase (ALT/SGPT) 35U/L (0-32) Alkaline Phosphatase 128U/L (25-165) Total Protein 6.9g/dL (6.4-8.4) Albumin 3.6g/dL (3.4-5.0) Hold Regan Top Tube Received (Received) Urine Color [place] (YELLOW) Urine Appearance Cloudy (CLEAR,HAZY) Urine pH (5.0-8.0) Urine Specific [place] 1.016 (1.003-1.035) Urine Protein mg/dL (NEG,TRACE) Urine Glucose (UA) mg/dL (NEGATIVE) Urine Ketones mg/dL (NEGATIVE) Urine Occult Blood (NEGATIVE) Urine Nitrite (NEGATIVE) Urine Bilirubin (NEGATIVE) Urine Urobilinogen mg/dL (NORMAL) Urine Leukocyte Esterase (NEGATIVE) Urine RBC >50/hpf (0-2) Urine WBC 6-10/hpf (0-5) Urine Epithelial Cells Occasional/hpf (NONE-MOD) Urine Crystals Oxalic acid crystals (NONE Urine Bacteria Few/hpf (NONE-FEW) Urine Hyaline Casts None/lpf (NONE) Urine Granular Casts None seen (NONE SEEN) Urine Waxy Casts None seen (NONE SEEN) Urine Red Blood Cell Casts None seen (NONE SEEN) Urine White Blood Cell Casts None seen (NONE SEEN) Urine Mucus None seen (None Seen) Urine Trichomonas None seen (NONE SEEN) Urine Yeast None (NONE SEEN) Urinalysis Comment None Urine Culture Reflexed Indicated Re-Eval/Medical Decision Re-Evaluation/Progress #1: Time of Eval: 18:00 Re-Evaluation/Progress Note: Patient reports that her nausea has slightly improved but is still in pain Re-Evaluation/Progress #2: Time of Eval: 19:35 Re-Evaluation/Progress Note: Patient states her nausea is improved. Re-Evaluation/Progress #3: Time of Eval: 20:56 Re-Evaluation/Progress Note: The patient is not reasonably symptom controlled with large doses of antibiotics and oral analgesics. I do not believe it is safe to send her home at this point. Discussed plan for admit. Patient understands and agrees to plan. All questions were addressed. Consultation : Referral / Consult Name: Ashley Rice DO Consulted With: Hospitalist Call Returned at: 21:34 Supervisor Stave Finishing: Agrees with eval, Agrees with plan, Accepts admit Counseled Regarding: Diagnosis, Lab results, Need for admission Discharge & Departure Primary Impression: Ureteral colic Disposition: ADMITTED TO HOSPITAL Discharge Condition All VS Reviewed: Yes Condition: Stable Referrals: Kei Mcfarlane MD (PCP) Diego Attestation Portions of this note were transcribed by Kathi Felton. I, Dr. Monge personally performed the history, physical exam and medical decision-making; I reviewed and confirmed the accuracy of the information in the transcribed note. Signed by: Diego Hsu, 11/22/16 copies to: Kei Mcfarlane MD, Kirk H MD Nov 22, 2016 16:23 Lorie Felton Nov 22, 2016 16:57
[2016-11-22] MEDS ORDERED: Promethazine 25 mg Rectal Suppository RECTAL ONE ×2 (17:00→18:10)
[2016-11-22 20:02] VITALS: BP 129/78; PULSE 97; RESP 16; O2SAT 92
[2016-11-22] MEDS ORDERED: 0.9% Sodium Chloride 1,000 ML IV ONE (20:09)
[2016-11-22] MEDS ORDERED: Ondansetron 2 mg/mL 2 mL Inj IV PRN (20:10)
[2016-11-22 20:46] LABS: BASOPHILS % (AUTO) 0.6 % (0-3); EOSINOPHILS % (AUTO) 7.7 % (0-5); MONOCYTES % (AUTO) 10.3 % (4-12); Mean Corpuscular Hemoglobin 29.2 pg (27.0-35.0); Mean Corpuscular Volume 93.4 fL (81-100); NEUTROPHILS % (AUTO) 65.6 % (40-74); Platelet Count 438 bil/L (150-400)
[2016-11-22 20:54] LABS: APPEARANCE,URINE CLOUDY (CLEAR,HAZY); COLOR,URINE ORANGE (YELLOW)
[2016-11-22 21:06] LABS: Magnesium 2.5 mg/dL (1.6-2.6)
[2016-11-22] MEDS ORDERED: Alum-Mag Hydrox-Simeth 30 mL Suspension PO PRN (22:20)
[2016-11-22] MEDS ORDERED: Ondansetron 2 mg/mL 2 mL Inj IVPUSH PRN (22:20)
[2016-11-22 22:30] VITALS: BP 119/76; PULSE 88; RESP 16; O2SAT 92
[2016-11-22 23:18] VITALS: BP 130/81; PULSE 86; RESP 20; O2SAT 92
[2016-11-23] VITALS (7 sets, daily range): BP systolic 127–134; BP diastolic 68–83; PULSE 76–93; RESP 16–20; O2SAT 92–96
[2016-11-23] MEDS ORDERED: Alum-Mag Hydrox-Simeth 30 mL Suspension PO PRN (00:05)
[2016-11-23] MEDS ORDERED: Polyethylene Glycol (PEG) 17 Gm Powder PO PRN (00:05)
[2016-11-23] MEDS ORDERED: Ondansetron 2 mg/mL 2 mL Inj IVPUSH PRN (00:05)
--- NOTE | 2016-11-23 00:33 | PCM.HPMED ---
Subjective Date of Service Nov 22, 2016 Primary Provider: Admitting Physician: Ashley Rice DO Primary Care Physician: Kei Mcfarlane MD Attending Physician: Ashley Rice DO Chief Complaint: Left flank pain History of Present Illness: Belinda Painting is a 66-year-old female with a past medical history of recurrent nephrolithiasis, hypertension, GERD, fibromyalgia, since 2012 who presents to the ED with left flank pain and dysuria that began several weeks ago and increasing severity within the last 3 days. She initially rated the pain a 25/ 10. She reports that the pain feels like she is being stabbed in the back and is worse with movement and sitting. This pain started several weeks ago when she developed 2 left sided kidney stones. She was seen on 11/09/16 when she had one stone removed and left ureteral stent placed by Dr. Jarvis. She was still having significant pain so on 11/15/16, Dr. Parrish performed ureteroroscopy, laser lithotripsy, basket extraction of calculus fragments, left-sided double-J stent replacement. Urography from 11/15/16 shows possible retained stones within renal pelvis and moderate hydronephrosis. The pain hasn't gone away and has actually become very severe over the past 3 days to a point where she could no longer control it with positioning or pain medications including fentanyl patch , oxycodone and acetaminophen. She is still able to urinate, but has difficulty with starting urination at times and having dysuria with pain radiating to the right shoulder at its worst. She also has hematuria, low grade fever (that measured 99F at home), and nausea with dry heaves that began yesterday with today being unresponsive to zofran. During questioning, she rated her pain 7/10 , tolerable, and said that she no longer had nausea. She has constipation due to chronic pain medications that is well-controlled with medications and last bowel movement earlier today. She denies chest pain and shortness of breath. In the ED, she was afebrile and vital signs were stable. Her CBC showed normocytic anemia hgb/hct 10.1/32.3 and unchanged from prior visit. Her BUN/ creatinine were 34/0.88, which are both above her baseline. Her urine was orange and had >50 RBC/hpf, 6-10 WBC/hpf, few bacteria, and oxalic acid crystals. She received 30mg oxycodone PO and 50mg promethazine rectally in the ED. No new imaging was performed. Review of Systems: A comprehensive review of systems was conducted with the patient and found to be negative except as above in the History of Present Illness. Allergies Coded Allergies: TAPE (Verified Allergy, Severe, blisters (PAPER TAPE OK), 11/22/16) Macrolide Antibiotics (Verified Allergy, Unknown, UNKNOWN, 11/22/16) brimonidine (Unverified Allergy, Unknown, 11/22/16) ENTERED FROM UNCODED ALLERGIES chlorhexidine (Unverified Allergy, Unknown, 11/22/16) ENTERED FROM UNCODED ALLERGIES meperidine (Verified Allergy, Unknown, UNKNOWN, 11/22/16) miconazole (Unverified Allergy, Unknown, 11/22/16) ENTERED FROM UNCODED ALLERGIES polymyxin B (Verified Allergy, Unknown, UNKNOWN, 11/22/16) prochlorperazine (Verified Allergy, Unknown, UNKNOWN (PHENOTHIAZINES) , 11/22/16) cefdinir (Verified Adverse Reaction, Severe, YELLOW EYES, GREEN STOOL, 11/23) cisapride (Verified Adverse Reaction, Severe, SEVERE DIARRHEA, 11/23/16) erythromycin ethylsuccinate (Verified Adverse Reaction, Severe, cramping diarrhea, 11/22/16) gabapentin (Verified Adverse Reaction, Severe, ANXIETY/DEPRESSION, 11/22/16) metoclopramide (Verified Adverse Reaction, Severe, SEVERE TWITCHING, ) pregabalin (Verified Adverse Reaction, Severe, PERIPHERAL EDEMA, 11/22/16) propranolol (Verified Adverse Reaction, Severe, DIARRHEA, 11/22/16) tamsulosin (Verified Adverse Reaction, Severe, HYPOTENSION, 11/22/16) Uncoded Allergies: CHLOROPREP (Allergy, Severe, RED WELTS, 07/26/13) bee stings (Allergy, Unknown, UNKNOWN, 07/26/13) MICONAZOLE (Adverse Reaction, Severe, SWELLING/TOPICAL RASH, 07/26/13) BROMINDIONE (Adverse Reaction, Unknown, FOUND IN COMBIGAN EYE GTTS- REACTION UNKNOWN, 07/26/13) Home Medications FISH OIL UNKNOWN take 1 Capsule by Oral route every day VITAMIN D3 UNKNOWN 5000IU 1 during winter and 2000IU during summer Supplements calcium magnesium dose unknown ACETAMINOPHEN 500 mg take 2 tablet (1000MG) by oral route every 6 hours as needed DIPHENHYDRAMINE HCL 25 mg take 1 - 2 tablet (25MG) by ORAL route every 4 - 6 hours as needed REFRESH OPTIVE ADVANCED 0.5 %-1 %-0.5 % One drop both eyes 2-6 times daily for dryness. COLACE 100 mg take 1 - 2 Capsule by oral route 2 times every day as needed for constipation ALEVE 220 mg 2 daily NYSTOP 100,000 unit/gram use topically as needed. RESTASIS 0.05 % instill 1 drop into affected eye every 12 hours TIMOLOL MALEATE 0.5 % 1 gtt right every morning within 30 minutes of waking. Close eyes for 2 minutes after putting drop in. FLONASE 50 mcg/actuation spray 2 spray by Intranasal route every day in each nostril for allergies. LUMIGAN 0.01 % one drop right eye at night LOTEMAX 0.5 % INSTILL ONE DROP IN RIGHT EYE TWICE DAILY (CLOSE EYES FOR 2 MINUTES AFTER PUTTING DROP IN) LANSOPRAZOLE 30 mg take 1 capsule by ORAL route 2 times every day before a meal for acid reflux. AMITRIPTYLINE HCL 10 mg take 3 tablet by oral route every evening 1 hour prior to bed for sleep/mood ONDANSETRON 4 mg take 1 - 2 Tablet by oral route every [address] on top of the tongue where it will dissolve, then swallow FLUOXETINE HCL 20 mg take 3 capsule (60MG) by oral route every day for mood Durable Medical Equipment disabled parking placard Supplements join soother glucoamine chondroitm MSM 2 caplet a day Supplements green source multi vitamin mineral one tablet a day with food PROBIOTIC 20 billion cell take 2 capsule a day B-12 5,000 mcg-100 mcg take 1 a day Supplements garlic fresh 500mg parsley 100mg 1 BID Supplements flaxseedoil 1000mg 450mg omega -3 one a day Supplements standard process calcium lactate 250mg magnesium citrate 50mg 6 tab a day TIZANIDINE HCL 4 mg take 1/4 to 2 tablets orally at night. FENTANYL 37.5 mcg/hour apply 1 patch by transdermal route every 48 hours PMH Cataracts s/p bilateral extraction and macular "hole" repair Glaucoma s/p corneal transplant TIA GERD Hiatal Hernia s/p Leif fundoplication Mild IBS Nephrolithiasis s/p lithotripsy UTI Fibromyalgia Anxiety Depression Reports: Hypertension, Denies: Congestive heart failure Reports: Depression Family History Reports: Cancer Social History Hx Alcohol Use: No Hx Substance Use: No Hx Tobacco Use: No Smoking Status: Never Smoker Exam Vital Signs Vital Sign - Last Date Time Temp Pulse Resp B/P Pulse Ox O2 Delivery O2 Flow Rate FiO2 11/22/16 20:02 36.2 97 16 129/78 92 Room Air Exam General: No acute distress, well-developed, well-nourished, appropriately interactive HEENT: Normocephalic, atraumatic. External ears without defect. Pupils equal, round, and reactive to light and accommodation. Anicteric sclerae, moist conjunctivae. Neck: Supple with full range of motion. No jugular venous distension. No bruits. No lymphadenopathy or thyromegaly. Cardiovascular: Regular rate and rhythm with no murmurs, rubs, or gallops appreciated Pulmonary: Clear to auscultation bilaterally with no crackles, wheezes, or rhonchi. Normal respiratory effort with no use of accessory muscles. Abdomen: Bowel tones present. Soft, RUQ and left flank tenderness, nondistended. No organomegally or masses appreciated. Left CVA tenderness. Extremities: No clubbing, cyanosis, edema, or lymphadenopathy appreciated. Skin: Normal temperature, turgor, and texture; no rash, ulcers, or subcutaneous nodules appreciated. Neurological: Cranial nerves grossly intact. Normal muscle strength, tone, and bulk. Reflexes, coordination, and sensory function within normal limits. No known gait impairment. Psychiatric: Normal mood and affect. Alert and oriented to person, place, and time. Lab and Diagnostics Labs Item Value Date Time Alanine Aminotransferase (ALT/SGPT) 35 U/L H 11/22/162034 Aspartate Amino Transf (AST/SGOT) 29 U/L 11/22/162034 Alkaline Phosphatase 128 U/L 11/22/162034 Urine Color [place] 11/22/162039 Urine Appearance Cloudy 11/22/162039 Urine RBC >50 /hpf 11/22/162039 Urine WBC 6-10 /hpf 11/22/162039 Urine Crystals Oxalic acid crystals 11/22/162039 Urine Epithelial Cells Occasional /hpf 11/22/162039 Urine Bacteria Few /hpf 11/22/162039 Result Diagram: 8203411/22/162034 Microbiology Item Value Date Time Urine Culture Received 11/22/162039 Urine,Random Pre-Plated Pending X-Rays, CTs and MRIs X-ray s/p stent placement on 11/15/16 11/15/16 PROCEDURE: X-RAY RETROGRADE UROGRAPHY IMPRESSION: 1. Limited exam demonstrating possible retained stones within the renal pelvis as well as moderate hydronephrosis. 2. Ureteral stent placed. Dictated by: Brent Fernandez [facility] Interpreted: Clint Ramirez MD on 11/15/2016 at 13 :38 11/10/16 PROCEDURE: MRI ABDOMEN WITHOUT CONTRAST ([id number]) IMPRESSION: 1. Marked intrahepatic and extrahepatic biliary dilatation is similar to the numerous previous examinations and has only slightly increased since 2006, suggestive of a benign process. However, if the patient's liver function tests are persistently elevated and or increasing, please consider ERCP for better evaluation as this appearance may be related to focal stricture. No choledocholithiasis. No definite mass at the head of the pancreas is evident. There is pancreatic dilatation, as well, which is similar to multiple prior studies. 2. No definable pancreatic mass is evident on this exam. However, evaluation of the pancreas without contrast is limited and subsequently, pancreatic lesions could potentially be missed on MRCP. 3. Decreasing degree of left-sided hydronephrosis. Dictated by: John Bland M.D. on 11/10/2016 at 9:19 11/08/16 PROCEDURE: CT ABDOMEN AND PELVIS WITH CONTRAST ([id number]) IMPRESSION: 1. 6 mm stone in the left UPJ causing moderate left-sided hydronephrosis stable compared to prior CT scans. 5 mm stone noted in the left UVJ is causing mild left-sided hydroureter. 2. Small, bilateral nonobstructing cortical renal stones. 3. Intrahepatic and extrahepatic biliary dilatation which has progressed in the interval since the prior CT scans. Recommend correlation with laboratory data to exclude though obstruction. 4. Pancreatic duct at dilatation with slight heterogeneous enhancement and hypoattenuation of the uncinate process of the pancreas. Underlying pancreatic neoplasm cannot be excluded. Recommend dedicated CT scan pancreatic protocol or MRI pancreatic protocol for further evaluation. 5. Postsurgical changes. 6. Severe fecal loading throughout colon. Please correlate with clinical data. Dictated by: Eden Cheung MD, PhD on 11/08/2016 at 19:49 Assessment & Plan Belinda Painting is a 66-year-old woman with past medical history significant for hypertension, fibromyalgia, IBS and frequent recurrent nephrolithiasis s/p stenting 11/15/16 who presents with left flank pain for 3 days. Left Nephrolithiasis, present on admission, active Patient is status post ureteroroscopy, laser lithotripsy, basket extraction of calculus fragments, left-sided double-J stent replacement on 11/15/[address] Parrish. A large burden of the stone was thought to have been broken down at that time. Etiology to recurrent nephrolithiasis is still uncertain. - Urography on 11/15 showed retained stones in renal pelvis after stent placement - Consult has been ordered for Urology. Day team to call urology and discuss further care. - NPO after midnight - NS 100 mL/hr - Pain management as patient is normally on a fentanyl patch and oxycodone 5 mg typically TID per her report. Will give morphine 2-4 mg q2 hours as needed for pain control in place of oxycodone. Glaucoma s/p corneal transplant - Continue outpatient eyedrops Hypertension, chronic - Not currently on medication, monitor BP GERD, chronic - Continue home PPI Fibromyalgia - Holding oxycodone in place of morphine for her acute pain. Anxiety/Depression - Continue home fluoxetine. Patient Status: Patient is admitted under observation status with expected length of stay less than 2 midnights due to severity of presenting symptoms and risk of adverse event. Code Status: Full Code GI Prophylaxis: Proton Pump Inhibitor VTE Prophylaxis: Sub-Q Heparin (Unfractionated) VTE Mechanical Devices: Intermittant Pneumatic CD Resuscitation Status: CPR: Attempt Resuscitation Attending Statement The patient was seen and examined together with house staff on 11/23/2016 and I agree with the history, exam and plan as outlined in the note above. Marcel Tapia DO Nov 22, 2016 21:59 MATTEO GALE MD Nov 23, 2016 00:05 Ashley Rice DO Nov 23, 2016 04:45 - Holding oxycodone in place of morphine for her acute pain. Anxiety/Depression - Continue home fluoxetine. Patient Status: Patient is admitted under observation status with expected length of stay less than 2 midnights due to severity of presenting symptoms and risk of adverse event. Code Status: Full Code GI Prophylaxis: Proton Pump Inhibitor VTE Prophylaxis: Sub-Q Heparin (Unfractionated) VTE Mechanical Devices: Intermittant Pneumatic CD Resuscitation Status: CPR: Attempt Resuscitation Marcel Tapia DO Nov 22, 2016 21:59 MATTEO GALE MD Nov 23, 2016 00:05 Left Nephrolithiasis, present on admission, active Patient is status post ureteroroscopy, laser lithotripsy, basket extraction of calculus fragments, left-sided double-J stent replacement on 11/15/[address] Parrish. A large burden of the stone was thought to have been broken down at that time. Etiology to recurrent nephrolithiasis is still uncertain. - Urography on 11/15 showed retained stones in renal pelvis after stent placement - Consult has been ordered for Urology. Day team to call urology and discuss further care. - NPO after midnight - NS 100 mL/hr - Pain management as patient is normally on a fentanyl patch and oxycodone 5 mg typically TID per her report. Will give morphine 2-4 mg q2 hours as needed for pain control in place of oxycodone. Glaucoma s/p corneal transplant - Continue outpatient eyedrops Hypertension, chronic - Not currently on medication, monitor BP GERD, chronic - Continue home PPI Fibromyalgia - Holding oxycodone in place of morphine for her acute pain. Anxiety/Depression - Continue home fluoxetine. Patient Status: Patient is admitted under observation status with expected length of stay less than 2 midnights due to severity of presenting symptoms and risk of adverse event. Code Status: Full Code GI Prophylaxis: Proton Pump Inhibitor VTE Prophylaxis: Sub-Q Heparin (Unfractionated) VTE Mechanical Devices: Intermittant Pneumatic CD Resuscitation Status: CPR: Attempt Resuscitation Marcel Tapia DO Nov 22, 2016 21:59 MATTEO GALE MD Nov 23, 2016 00:05
[2016-11-23] MEDS: Heparin 5,000 Unit/mL Inj SUBQ SCH ×4 (00:54→23:27)
[2016-11-23] MEDS: 0.9% Sodium Chloride 1,000 ML IV SCH ×4 (00:54→23:51)
--- NOTE | 2016-11-23 05:43 | NUR ---
admit Pt arrived to unit at 2230 via a stretcher from the ED. Helped with one person transfer to bed. Alert, oriented, and able to make needs known. No decreased in LOC noted. c/o left flank pain on a scale of 8/10. Morphine 2mg IV administered with good relief and pt sleep for about couple of hours. One person assist to bathroom with use of 4WW with no safety issue noted. NPO after night and BS 88 x1 this shift.
[2016-11-23 06:41] LABS: BASOPHILS % (AUTO) 0.9 % (0-3); EOSINOPHILS % (AUTO) 11.3 % (0-5); MONOCYTES % (AUTO) 10.1 % (4-12); Mean Corpuscular Volume 95.2 fL (81-100); NEUTROPHILS % (AUTO) 52.5 % (40-74); Platelet Count 416 bil/L (150-400)
[2016-11-23] MEDS: Pantoprazole 40 mg ER24 Tablet PO SCH ×2 (07:50→15:31)
[2016-11-23] MEDS: Fluticasone 0.05% 15 Spray/2 Gm 16 Gm Nasal Spray NOSTRIL SCH (07:52)
[2016-11-23] MEDS: Artificial Tears 15 mL Ophthalmic Solution BOTH_EYES SCH ×2 (07:54→20:41)
[2016-11-23] MEDS: Timolol 0.5% 5 mL Ophthalmic Solution RIGHT_EYE SCH (08:13)
[2016-11-23] MEDS: CYCLOSPORINE OPTH BOTH_EYES SCH ×2 (11:08→20:41)
[2016-11-23] MEDS: LOTEPREDNOL OPTH RIGHT_EYE SCH ×2 (11:09→20:41)
[2016-11-23] MEDS ORDERED: ProchlorPERazine 5 mg/mL 2 mL Inj IVPUSH ONE (11:10)
--- NOTE | 2016-11-23 12:26 | PCM.HPSURG ---
Subjective Date of Service: Nov 23, 2016 Referring Provider: Admitting Physician: Ashley Rice DO Primary Care Physician: Kei Mcfarlane MD Attending Physician: Raffi Lawler MD Chief Complaint I was asked by Dr Garay to see a 66 y/o woman admitted 11/22 with abdominal/ back pain with h/o ureteral stone(s) renal stones, now s/p ureteroscopy/laser Lithotripsy and stone extraction with stent exchange on 11/15/16. Post procedure stent remains in place. History of Present Illness Pt is a 66 y/o woman with multiple medical problems including fibromyalgia with chronic narcotic (fentanyl) dependance, who was seen by urology in consult 11/10 with distal L ureteral stone and also large proximal obstructing stone and few non-obstructing renal calculi. The distal stone was treated by Dr Jarvis and she was stented to dilate to facilitate later treatment of the proximal stone(s.) She had L Ureteroscopy/Laser Lithotripsy of the large proximal stone and some stone in the renal pelvis- made difficult by considerable clot about the stent, but felt to have had good treatment of at least the largest bulk of her stone. Due to the nature of her ureteral swelling, the posibility of ideally small residual fragments, her pain history and the hematuria a JJ stent was left in place and has not yet been removed. She presented to the ER 11/22 again with complaints of pain. in the ER she was afebrile and vital signs were stable. Her CBC showed normocytic anemia hgb/hct 10.1/32.3 and unchanged from prior visit. Her BUN/creatinine were 34/0.88, which are both above her baseline. Her urine was orange and had >50 RBC/hpf, 6- 10 WBC/hpf, few bacteria, and oxalic acid crystals. She received 30mg oxycodone PO and 50mg promethazine rectally in the ED. No new imaging was performed. with c/o "severe pain" and nausea and subjective fever she was admitted to the hospitalist service. She has remained afebrile with hank vitals since admit. Allergy Allergies: Coded Allergies: TAPE (Verified Allergy, Severe, blisters (PAPER TAPE OK), 11/22/16) Macrolide Antibiotics (Verified Allergy, Unknown, UNKNOWN, 11/22/16) brimonidine (Unverified Allergy, Unknown, 11/22/16) ENTERED FROM UNCODED ALLERGIES chlorhexidine (Unverified Allergy, Unknown, 11/22/16) ENTERED FROM UNCODED ALLERGIES meperidine (Verified Allergy, Unknown, UNKNOWN, 11/22/16) miconazole (Unverified Allergy, Unknown, 11/22/16) ENTERED FROM UNCODED ALLERGIES polymyxin B (Verified Allergy, Unknown, UNKNOWN, 11/22/16) prochlorperazine (Verified Allergy, Unknown, UNKNOWN (PHENOTHIAZINES) , 11/22/16) cefdinir (Verified Adverse Reaction, Severe, YELLOW EYES, GREEN STOOL, 11/23) cisapride (Verified Adverse Reaction, Severe, SEVERE DIARRHEA, 11/23/16) erythromycin ethylsuccinate (Verified Adverse Reaction, Severe, cramping diarrhea, 11/22/16) gabapentin (Verified Adverse Reaction, Severe, ANXIETY/DEPRESSION, 11/22/16) metoclopramide (Verified Adverse Reaction, Severe, SEVERE TWITCHING, ) pregabalin (Verified Adverse Reaction, Severe, PERIPHERAL EDEMA, 11/22/16) propranolol (Verified Adverse Reaction, Severe, DIARRHEA, 11/22/16) tamsulosin (Verified Adverse Reaction, Severe, HYPOTENSION, 11/22/16) Uncoded Allergies: CHLOROPREP (Allergy, Severe, RED WELTS, 07/26/13) bee stings (Allergy, Unknown, UNKNOWN, 07/26/13) MICONAZOLE (Adverse Reaction, Severe, SWELLING/TOPICAL RASH, 07/26/13) BROMINDIONE (Adverse Reaction, Unknown, FOUND IN COMBIGAN EYE GTTS- REACTION UNKNOWN, 07/26/13) Social History Hx Alcohol Use: No Hx Substance Use: No Hx Tobacco Use: No PMH HEENT History History of ENT Problems?: Yes HEENT History: Positive for:: Cataracts (S/P BILAT EXTRACTION & MACULAR "HOLE " RPR) Dysphagia (when trying to eat too fast) Hearing Problem Sinus Problem (S/P LT NASAL SURGERY) Denies:: Abnormal Airway Difficult Intubation Glaucoma Cardiovascular History History of Heart Problems?: No Cardiovascular History: Positive for:: Chest Pain Irregular Heartbeat (PT REPORTS PALPITATIONS) Denies:: AICD Atrial Fibrillation Cardiac Surgery Congestive Heart Failure Edema Heart Murmur Hypertension Pacemaker Thrombophlebitis Valvular Heart Disease Respiratory History of Respiratory Problem: Yes Respiratory History: Positive for:: Asthma (states when i was younger) Dyspnea (with increased activity) Use of C-PAP Machine (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) Denies:: COPD Chest Surgery Cough Emphysema Hemoptysis Pneumonia Tuberculosis Neurological History Hx Neurologic Problems?: Yes Neurological History: Denies:: Alzheimer's Disease CVA Dementia Dizziness Headaches Parkinson's Disease Seizures Gastrointestinal History HX of GI Problems?: Yes Gastrointestinal History: Positive for:: Gastroesphageal Reflux (S/P ESOPHAGEAL RPR W/ FEEDING TUBE POSTOP) Heartburn (when i eat too fast or food with too much spice in it) Hiatal Hernia (S/P THONG FUNDOPLICATION) Rectal Bleeding (sugery and cauterized the bleeding area in ) Denies:: Cirrhosis Diverticulitis Gastrointestinal Bleeding Hepatitis Genitourinary History Hx of Gu Problems?: Yes Genitourinary History: Positive for: Kidney Stones (Left kidney stone current problem) Urinary Tract Infection (HX OF) Denies: HX of Hemodialysis Female/Male History Reproductive History Female: Denies: Currently ? Endometriosis Pelvic Inflammatory DX Problems with Breasts? Skin History Skin History: Positive for:: History Skin Disorders? (yeast infections) Denies:: Pressure Ulcers Musculoskeletal History Hx Musculoskeletal Problems?: Yes Musculoskeletal History: Positive for:: Back Injury (C/OF BACK/NECK PAIN ) Musculoskeletal Trauma (neck sugery) Denies:: Joint Replacement Psycho Social History Hx of Psycho/Social Problems?: Yes (per pt " i get depress sometimes") Psycho Social History: Positive for:: Hx Depression Denies:: Anxiety (going into surgery) Bipolar Disorder Suicide Attempt Other History Hx Any Other Health Problems?: Yes Other History: Positive for:: Hospitalization Denies:: Cancer Endocrine Disease Thyroid Disease Diabetes: No Social History Hx Alcohol Use: NoHx Substance Use: NoHx Tobacco Use: No Smoking Status: Never Smoker Review of Systems Constitutional: Reports: Chills, Fever, Malaise ENT: Denies: Nasal Congestion, Ulcers/Sores in Mouth Cardiovascular: Reports: Edema, Denies: Chest Pain Respiratory: Denies: Cough, Sputum Gastrointestinal: Reports: Abdominal Pain, Change in Appetite, Constipation, Nausea Genitourinary: Reports: Change in Frequency, Dysuria, Hematuria, Nocturia Musculoskeletal: Reports: Back Pain, Denies: Redness, Swelling Skin: Denies: Bruising, Jaundice, Rash Neurological: Reports: Weakness, Denies: Change in Speech, Confusion Psychologic: Denies: Disorientation Endocrine: Reports: Change in Appitite, Denies: Intolerent to Heat/Cold H&P Surgical Exam Exam General: Cooperative, No Acute Distress Neck: Supple, Other (midline trachea, no scars, no jvd supine) Heart: Regular Rate/Rhythm (warm ext, some dep edema, ) Abdomen: Other (Obese, soft no masses, general tenderness, no rebound no peritoneal signs) Neuro: Grossly Neurologically Intact (clear speech, symmetric face) Assessment & Plan Assessment H/o large stone burden on Left, now treated and still stented thus unlikely than any new "stone pain" would be source of patient's discomfort Her procedure was made difficult by ureteral edema and considerable tenacious clot about the location of the large uretera stone stone and in the kidney, and for this reason she was left with stent for some time post procedure. She has not yet been seen in clinic for removal. indwelling stents are variably well tolerated, with some patients complaining of urgency/frequency and flank discomfort with bladder spasm/contraction to variable degree Likely if stent remains in good position, her pain is not from ureteral obstruction Hematuria and WBC in urine are Expected in setting of intervention and stent placement. VTE Prophylaxis: Sub-Q Heparin (Unfractionated) VTE Mechanical Devices: Intermittant Pneumatic CD Plan: Imaging may demonstrate stent presence/absence (plain KUB may demonstrate position) CT would be needed for further identification of other abnormalities, though if properly placed would be highly unlikely there would be any urological surgical intervention which would be of help in the present situation. Have discussed with the admitting hospitalist service please do not hesitate to call with any further questions or concerns. Will be glad to follow this patient during her hospitalization and assist with her care where possible. Resuscitation Status: CPR: Attempt Resuscitation Yeni Parrish MD Nov 23, 2016 12:26
--- NOTE | 2016-11-23 13:48 | NUR ---
ITALO explained and signed. Copy of [place] and Medicare self administered medication information given to pt.
--- NOTE | 2016-11-23 15:19 | DRSVH ---
PROCEDURE: CT KUB ([id number]) INDICATIONS: ureteric colic TECHNIQUE: Noncontrast 5 mm thick sections acquired from the diaphragms to the symphysis. 5 mm thick coronal an d sagittal reformats were then performed. For radiation dose reduction, the following was used: aut omated exposure control, adjustment of mA and/or kV according to patient size. COMPARISON: [facility], CR, XR RETROGRADE UROGRAPHY, 11/15/2016, 8:57. [facility], CR, XR KUB, 11/10/2016, 10:21. [facility], CT, CT ABD PELVIS W CON, 11/08/2016, 19: 38. [facility], MR, MR ABD WO CON, 11/10/2016, 9:48. FINDINGS: Image quality: Excellent. Lung bases: Lung bases are clear. Heart size is normal. Urinary system: Both kidneys are normal in size. Previously identified small bilateral kidney stones are again seen, and there is a left ureteral stent with upper and lower pigtails in expected positio n. No right-sided hydronephrosis or perinephric fat stranding, but mild hydronephrosis and perinephr ic edema is present on the left. Both ureters appear non-dilated throughout their expected courses. Bladder wall thickness is normal; no calcified bladder stones. Other solid organs: Liver and spleen are normal in size. Gallbladder appears previously resected. Pancreas is normal in contours. No adrenal nodules. Peritoneum and bowel: Unenhanced bowel loops demonstrate normal wall thickness and caliber. No free fluid or air. Nodes and vessels: No retroperitoneal or mesenteric adenopathy by size criteria. Aorta and inferior vena cava are normal in caliber. Abdominal wall: No ventral hernias. Pelvis: No free pelvic fluid. No inguinal hernias or adenopathy. Bones: No suspicious bony lesions. No vertebral body compression fractures. IMPRESSION: There has been interval placement of a double pigtail ureteral catheter on the left, wit h upper and lower pigtails in normal position. Mild left hydronephrosis and perinephric edema persis ts, mild in overall severity. Small renal collecting system calculi are present bilaterally, as was previously the case. No defini te obstructive calculus is seen. Dictated by: Clint Ramirez M.D. on 11/23/2016 at 15:12 Approved by: Clint Ramirez M.D. on 11/23/2016 at 15:17
--- NOTE | 2016-11-23 18:22 | NUR ---
Nausea/pain Pt. had significant pain and nausea this morning, but after administration of zofran and morphine around 0830, then compazine at 1100, she felt much better this afternoon and evening. States she is doing better and is looking forward to hopefully be going home tomorrow.
--- NOTE | 2016-11-23 19:09 | PCM.PNMED ---
Subjective Date of Service Nov 23, 2016 Subjective patient seen and examined,pain controlled,having nausea Exam Vital Signs Vital Sign - Last Date Time Temp Pulse Resp B/P Pulse Ox O2 Delivery O2 Flow Rate FiO2 11/23/16 16:07 36.8 81 18 134/74 96 Nasal Cannula 2.00 Intake and Output 11/22/16 11/22/16 11/23/16 Cumulative From/Thru 15:00 23:00 07:00 11/22/16 15:53 - 11/23/16 06:43 Intake Total 1000 ml 523 ml 1523 ml Output Total 950 ml 950 ml Balance 1000 ml -427 ml 573 ml Intake Oral 0 ml 0 ml IV Total 1000 ml 523 ml 1523 ml Output Urine Total 950 ml 950 ml # Bowel Movements 0 0 Exam General: No acute distress, well-developed, well-nourished, appropriately interactive HEENT: Normocephalic, atraumatic. External ears without defect. Pupils equal, round, and reactive to light and accommodation. Anicteric sclerae, moist conjunctivae. Neck: Supple with full range of motion. No jugular venous distension. No bruits. No lymphadenopathy or thyromegaly. Cardiovascular: Regular rate and rhythm with no murmurs, rubs, or gallops appreciated Pulmonary: Clear to auscultation bilaterally with no crackles, wheezes, or rhonchi. Normal respiratory effort with no use of accessory muscles. Abdomen: Bowel tones present. Soft, RUQ and left flank tenderness, nondistended. No organomegally or masses appreciated. Left CVA tenderness. Extremities: No clubbing, cyanosis, edema, or lymphadenopathy appreciated. Skin: Normal temperature, turgor, and texture; no rash, ulcers, or subcutaneous nodules appreciated. Neurological: Cranial nerves grossly intact. Normal muscle strength, tone, and bulk. Reflexes, coordination, and sensory function within normal limits. No known gait impairment. Psychiatric: Normal mood and affect. Alert and oriented to person, place, and time. IVs and Medications Medications Reviewed: Medications were reviewed in detail Lab and Diagnostics Result Diagram: 11/23/16 0544 11/22/162034 Microbiology Item Value Date Time Urine Culture Received 11/22/162039 Urine,Random Pre-Plated Pending X-Rays, CTs and MRIs X-ray s/p stent placement on 11/15/16 11/15/16 PROCEDURE: X-RAY RETROGRADE UROGRAPHY IMPRESSION: 1. Limited exam demonstrating possible retained stones within the renal pelvis as well as moderate hydronephrosis. 2. Ureteral stent placed. Dictated by: Brent Fernandez [facility] Interpreted: Clint Ramirez MD on 11/15/2016 at 13 :38 11/10/16 PROCEDURE: MRI ABDOMEN WITHOUT CONTRAST ([id number]) IMPRESSION: 1. Marked intrahepatic and extrahepatic biliary dilatation is similar to the numerous previous examinations and has only slightly increased since 2006, suggestive of a benign process. However, if the patient's liver function tests are persistently elevated and or increasing, please consider ERCP for better evaluation as this appearance may be related to focal stricture. No choledocholithiasis. No definite mass at the head of the pancreas is evident. There is pancreatic dilatation, as well, which is similar to multiple prior studies. 2. No definable pancreatic mass is evident on this exam. However, evaluation of the pancreas without contrast is limited and subsequently, pancreatic lesions could potentially be missed on MRCP. 3. Decreasing degree of left-sided hydronephrosis. Dictated by: John Bland M.D. on 11/10/2016 at 9:19 11/08/16 PROCEDURE: CT ABDOMEN AND PELVIS WITH CONTRAST ([id number]) IMPRESSION: 1. 6 mm stone in the left UPJ causing moderate left-sided hydronephrosis stable compared to prior CT scans. 5 mm stone noted in the left UVJ is causing mild left-sided hydroureter. 2. Small, bilateral nonobstructing cortical renal stones. 3. Intrahepatic and extrahepatic biliary dilatation which has progressed in the interval since the prior CT scans. Recommend correlation with laboratory data to exclude though obstruction. 4. Pancreatic duct at dilatation with slight heterogeneous enhancement and hypoattenuation of the uncinate process of the pancreas. Underlying pancreatic neoplasm cannot be excluded. Recommend dedicated CT scan pancreatic protocol or MRI pancreatic protocol for further evaluation. 5. Postsurgical changes. 6. Severe fecal loading throughout colon. Please correlate with clinical data. Dictated by: Eden Cheung MD, PhD on 11/08/2016 at 19:49 PROCEDURE: CT KUB ([id number]) INDICATIONS: ureteric colic IMPRESSION: There has been interval placement of a double pigtail ureteral catheter on the left, with upper and lower pigtails in normal position. Mild left hydronephrosis and perinephric edema persists, mild in overall severity. Small renal collecting system calculi are present bilaterally, as was previously the case. No definite obstructive calculus is seen. Dictated by: Clint Ramirez M.D. on 11/23/2016 at 15:12 Assessment & Plan Belinda Painting is a 66-year-old woman with past medical history significant for hypertension, fibromyalgia, IBS and frequent recurrent nephrolithiasis s/p stenting 11/15/16 who presents with left flank pain for 3 days. # Intractable pain due to ureteric colic ,Left Nephrolithiasis, present on admission, active Patient is status post ureteroroscopy, laser lithotripsy, basket extraction of calculus fragments, left-sided double-J stent replacement on 11/15/[address] Parrish. A large burden of the stone was thought to have been broken down at that time. Etiology post lithotripsy colic due to stone fragments - Urography on 11/15 showed retained stones in renal pelvis after stent placement -discussed with Dr Parrish ,CT KUB repeated ,stent in place ,hydro improving -pain control with morphien,patient reluctant to take IV pain meds despite she reports pain of 7-8/10 - NS 100 mL/hr - Pain management as patient is normally on a fentanyl patch and oxycodone 5 mg typically TID per her report. Will give morphine 2-4 mg q2 hours as needed for pain control in place of oxycodone. Glaucoma s/p corneal transplant - Continue outpatient eyedrops Hypertension, chronic - Not currently on medication, monitor BP GERD, chronic - Continue home PPI Fibromyalgia - Holding oxycodone in place of morphine for her acute pain. Anxiety/Depression - Continue home fluoxetine. Patient Status: Patient is admitted under observation status with expected length of stay less than 2 midnights due to severity of presenting symptoms and risk of adverse event. Code Status: Full Code possible discharge tomorrow if pain controlled GI Prophylaxis: Proton Pump Inhibitor VTE Prophylaxis: Sub-Q Heparin (Unfractionated) VTE Mechanical Devices: Intermittant Pneumatic CD Resuscitation Status: CPR: Attempt Resuscitation Raffi Lawler MD Nov 23, 2016 19:09
[2016-11-24 00:16] VITALS: BP 110/69; PULSE 89; RESP 18; O2SAT 93
[2016-11-24 04:10] VITALS: BP 119/72; PULSE 83; RESP 16; O2SAT 94
--- NOTE | 2016-11-24 04:48 | NUR ---
pain/nausea pt has requested IV morphine once this shift. she had pain after urinating that she stated she could not "get under control". the IV morphine was effective in reducing her pain. she has denied the need for any anti-emetics this shift. she states sometimes the nausea comes on but goes away on its own. she is tolerating the heart healthy diet well. she states that overall she feels much improved from when she first came into the hospital. care continues.
[2016-11-24 06:27] VITALS: PULSE 83
[2016-11-24 08:41] LABS: EOSINOPHILS % (AUTO) 10.6 % (0-5); MONOCYTES % (AUTO) 9.1 % (4-12); Mean Corpuscular Hemoglobin 28.7 pg (27.0-35.0); Mean Corpuscular Volume 94.8 fL (81-100); NEUTROPHILS % (AUTO) 52.4 % (40-74); Platelet Count 393 bil/L (150-400)
[2016-11-24 08:42] LABS: BASOPHILS % (AUTO) 0.8 % (0-3)
--- NOTE | 2016-11-24 08:59 | PCM.DIMED ---
Discharge Instructions Date of Service Nov 24, 2016 Dates of Hospitalization Nov 22, 2016 at 21:49 Discharge Diagnosis Discharge Diagnosis # ureteric colic ,Left Nephrolithiasis, present on admission, active #Glaucoma s/p corneal transplant #Hypertension, chronic #GERD, chronic #Fibromyalgia Diet Discharge Diet: Low fat, Low Sodium Activity Discharge Activity: Limited until seen by PCP Call your provider Call your provider for: Fever or Chills, Shortness of breath, Bleeding, Chest pain, Vomitting, Excessive diarrhea, Weakness (unilateral) Patient Instructions Patient Instructions You were hospitalized due to left ureteric colic. Pain improved now. Repeat CT scan shows Small renal collecting system calculi unchanged from prior. No obstruction. Stent in place. No intervention required at this time per your urologist . Please follow-up with urologist tomorrow as scheduled. Please drink plenty of water. Follow-up Provider: Kei Mcfarlane MD Follow-up with PCP in: 2 weeks Provider: Yeni Parrish MD Follow-up in: 1 week (tomorrow as scheduled before ) Raffi Lawler MD Nov 24, 2016 08:59
[2016-11-24 09:00] VITALS: BP 151/81; PULSE 62; RESP 16; O2SAT 94
[2016-11-24 09:16] LABS: Magnesium 2.1 mg/dL (1.6-2.6)
[2016-11-24] MEDS: Artificial Tears 15 mL Ophthalmic Solution BOTH_EYES SCH (09:17)
[2016-11-24] MEDS: LOTEPREDNOL OPTH RIGHT_EYE SCH (09:17)
[2016-11-24] MEDS: Timolol 0.5% 5 mL Ophthalmic Solution RIGHT_EYE SCH (09:17)
[2016-11-24] MEDS: Fluticasone 0.05% 15 Spray/2 Gm 16 Gm Nasal Spray NOSTRIL SCH (09:19)
[2016-11-24] MEDS: CYCLOSPORINE OPTH BOTH_EYES SCH (09:19)
[2016-11-24] MEDS: Pantoprazole 40 mg ER24 Tablet PO SCH (09:20)
[2016-11-24] MEDS: Heparin 5,000 Unit/mL Inj SUBQ SCH (09:23)
[2016-11-24 10:09] VITALS: PULSE 73
--- NOTE | 2016-11-24 11:32 | NUR ---
Discharge Pt discharged to home in stable condition at 1130 in private vehicle with sister. IV discontinued. All discharge instructions and medications reviewed and pt. verbalized understanding. Encouraged pt. to follow-up with MD for JIMMIE and sleep study. All personal belongings sent with pt.
--- NOTE | 2016-11-24 11:45 | NUR ---
Social Work: Discharge/Attempted Initial Assessment/Multidisciplinary Rounds D: EMR reviewed. Pt is a 66 y/o female admitted [facility] for flank pain, nausea per H&P. Pt has a readmit risk score of 4. Pt's insurance is [employer] and [facility]. PCP is Kei Mcfarlane MD. Pt discussed in multidisciplinary rounds. Per multidisciplinary rounds, pt is medically stable for discharge today. MD indicated pt has no SW needs and is eager to discharge. SW attempted to assess pt prior to discharge - pt discharged prior to SW seeing pt. A: Pt who is independent at baseline, no concerns regarding pt's capacity for self-care - addressed in multidisciplinary rounds. P: Pt discharged at 1130 with sister via POV. No SW needs identified, no MD orders received. MERLENE Baires
--- NOTE | 2016-11-24 12:37 | PCM.DC.MED ---
Discharge Summary Date of Service Nov 24, 2016 Dates of Hospitalization Date of Hospital Admission Nov 22, 2016 at 21:49 Date of Discharge: Nov 24, 2016 Providers: Admitting Physician: Aslhey Rice DO Primary Care Physician: Kei Mcfarlane MD Attending Physician: Raffi Lawler MD Diagnosis at Time of Discharge Diagnosis at Time of Discharge # ureteric colic ,Left Nephrolithiasis, present on admission, active #Glaucoma s/p corneal transplant #Hypertension, chronic #GERD, chronic #Fibromyalgia Procedures XRay, CTs & MRIs X-ray s/p stent placement on 11/15/16 11/15/16 PROCEDURE: X-RAY RETROGRADE UROGRAPHY IMPRESSION: 1. Limited exam demonstrating possible retained stones within the renal pelvis as well as moderate hydronephrosis. 2. Ureteral stent placed. Dictated by: Brent MORSE Interpreted: Clint Ramirez MD on 11/15/2016 at 13 :38 11/10/16 PROCEDURE: MRI ABDOMEN WITHOUT CONTRAST ([id number]) IMPRESSION: 1. Marked intrahepatic and extrahepatic biliary dilatation is similar to the numerous previous examinations and has only slightly increased since 2006, suggestive of a benign process. However, if the patient's liver function tests are persistently elevated and or increasing, please consider ERCP for better evaluation as this appearance may be related to focal stricture. No choledocholithiasis. No definite mass at the head of the pancreas is evident. There is pancreatic dilatation, as well, which is similar to multiple prior studies. 2. No definable pancreatic mass is evident on this exam. However, evaluation of the pancreas without contrast is limited and subsequently, pancreatic lesions could potentially be missed on MRCP. 3. Decreasing degree of left-sided hydronephrosis. Dictated by: John Bland M.D. on 11/10/2016 at 9:19 11/08/16 PROCEDURE: CT ABDOMEN AND PELVIS WITH CONTRAST ([id number]) IMPRESSION: 1. 6 mm stone in the left UPJ causing moderate left-sided hydronephrosis stable compared to prior CT scans. 5 mm stone noted in the left UVJ is causing mild left-sided hydroureter. 2. Small, bilateral nonobstructing cortical renal stones. 3. Intrahepatic and extrahepatic biliary dilatation which has progressed in the interval since the prior CT scans. Recommend correlation with laboratory data to exclude though obstruction. 4. Pancreatic duct at dilatation with slight heterogeneous enhancement and hypoattenuation of the uncinate process of the pancreas. Underlying pancreatic neoplasm cannot be excluded. Recommend dedicated CT scan pancreatic protocol or MRI pancreatic protocol for further evaluation. 5. Postsurgical changes. 6. Severe fecal loading throughout colon. Please correlate with clinical data. Dictated by: Eden Cheung MD, PhD on 11/08/2016 at 19:49 PROCEDURE: CT KUB ([id number]) INDICATIONS: ureteric colic IMPRESSION: There has been interval placement of a double pigtail ureteral catheter on the left, with upper and lower pigtails in normal position. Mild left hydronephrosis and perinephric edema persists, mild in overall severity. Small renal collecting system calculi are present bilaterally, as was previously the case. No definite obstructive calculus is seen. Dictated by: Clint Ramirez M.D. on 11/23/2016 at 15:12 Brief History per HPI Pt is a 66 y/o woman with multiple medical problems including fibromyalgia with chronic narcotic (fentanyl) dependance, who was seen by urology in consult 11/10 with distal L ureteral stone and also large proximal obstructing stone and few non-obstructing renal calculi. The distal stone was treated by Dr Jarvis and she was stented to dilate to facilitate later treatment of the proximal stone(s.) She had L Ureteroscopy/Laser Lithotripsy of the large proximal stone and some stone in the renal pelvis- made difficult by considerable clot about the stent, but felt to have had good treatment of at least the largest bulk of her stone. Due to the nature of her ureteral swelling, the posibility of ideally small residual fragments, her pain history and the hematuria a JJ stent was left in place and has not yet been removed. She presented to the ER 11/22 again with complaints of pain. in the ER she was afebrile and vital signs were stable. Her CBC showed normocytic anemia hgb/hct 10.1/32.3 and unchanged from prior visit. Her BUN/creatinine were 34/0.88, which are both above her baseline. Her urine was orange and had >50 RBC/hpf, 6- 10 WBC/hpf, few bacteria, and oxalic acid crystals. She received 30mg oxycodone PO and 50mg promethazine rectally in the ED. No new imaging was performed. with c/o "severe pain" and nausea and subjective fever she was admitted to the hospitalist service. She has remained afebrile with hank vitals since admit. Hospital Course Belinda Painting is a 66-year-old woman with past medical history significant for hypertension, fibromyalgia, IBS and frequent recurrent nephrolithiasis s/p stenting 11/15/16 who presents with left flank pain for 3 days. # ureteric colic ,Left Nephrolithiasis, present on admission, active Patient is status post ureteroroscopy, laser lithotripsy, basket extraction of calculus fragments, left-sided double-J stent replacement on 11/15/[address] Parrish. A large burden of the stone was thought to have been broken down at that time. Etiology post lithotripsy colic due to stone fragments - Urography on 11/15 showed retained stones in renal pelvis after stent placement -discussed with Dr Parrish ,CT KUB repeated ,stent in place ,hydro improving, bilateral pelvic stone persists -pain control with morphien,patient reluctant to take IV pain meds despite she reports pain of 7-8/10 -continue Pain management as patient is normally on a fentanyl patch and oxycodone 5 mg typically TID per her report. # JIMMIE ,not using CPAP -patient has some desating during sleep and day time somnolenece -she used to use CPAP but not using currently.advised to have sleep study and use her CPAP #Glaucoma s/p corneal transplant - Continue outpatient eyedrops #Hypertension, chronic - Not currently on medication, monitor BP #GERD, chronic - Continue home PPI #Fibromyalgia - Holding oxycodone in place of morphine for her acute pain. #Anxiety/Depression - Continue home fluoxetine. Patient Status: Patient is admitted under observation status with expected length of stay less than 2 midnights due to severity of presenting symptoms and risk of adverse event. Code Status: Full Code discharge today ,pain much improved she has appt with urology tomorrow Exam Vital Signs (Last) Date Time Temp Pulse Resp B/P Pulse Ox O2 Delivery O2 Flow Rate FiO2 11/24/16 10:09 73 11/24/16 09:00 37.3 16 151/81 94 Room Air 11/24/16 04:10 2.00 Exam General: No acute distress, well-developed, well-nourished, appropriately interactive HEENT: Normocephalic, atraumatic. External ears without defect. Pupils equal, round, and reactive to light and accommodation. Anicteric sclerae, moist conjunctivae. Neck: Supple with full range of motion. No jugular venous distension. No bruits. No lymphadenopathy or thyromegaly. Cardiovascular: Regular rate and rhythm with no murmurs, rubs, or gallops appreciated Pulmonary: Clear to auscultation bilaterally with no crackles, wheezes, or rhonchi. Normal respiratory effort with no use of accessory muscles. Abdomen: Bowel tones present. Soft, RUQ and left flank tenderness, nondistended. No organomegally or masses appreciated. Left CVA tenderness. Extremities: No clubbing, cyanosis, edema, or lymphadenopathy appreciated. Skin: Normal temperature, turgor, and texture; no rash, ulcers, or subcutaneous nodules appreciated. Neurological: Cranial nerves grossly intact. Normal muscle strength, tone, and bulk. Reflexes, coordination, and sensory function within normal limits. No known gait impairment. Psychiatric: Normal mood and affect. Alert and oriented to person, place, and time. Test 11/22/16 20:35 11/22/16 20:40 11/24/16 08:25 Hold Regan Top Tube Received (Received) Urine Color [place] (YELLOW) Urine Appearance Cloudy (CLEAR,HAZY) Urine pH (5.0-8.0) Urine Specific [place] 1.016 (1.003-1.035) Urine Protein mg/dL (NEG,TRACE) Urine Glucose (UA) mg/dL (NEGATIVE) Urine Ketones mg/dL (NEGATIVE) Urine Occult Blood (NEGATIVE) Urine Nitrite (NEGATIVE) Urine Bilirubin (NEGATIVE) Urine Urobilinogen mg/dL (NORMAL) Urine Leukocyte Esterase (NEGATIVE) Urine RBC >50/hpf (0-2) Urine WBC 6-10/hpf (0-5) Urine Epithelial Cells Occasional/hpf (NONE-MOD) Urine Crystals Oxalic acid crystals (NONE Urine Bacteria Few/hpf (NONE-FEW) Urine Hyaline Casts None/lpf (NONE) Urine Granular Casts None seen (NONE SEEN) Urine Waxy Casts None seen (NONE SEEN) Urine Red Blood Cell Casts None seen (NONE SEEN) Urine White Blood Cell Casts None seen (NONE SEEN) Urine Mucus None seen (None Seen) Urine Trichomonas None seen (NONE SEEN) Urine Yeast None (NONE SEEN) Urinalysis Comment None Urine Culture Reflexed Indicated White Blood Count 5.9th/mm3 (3.8-10.1) Red Blood Count 3.28mil/mm3 (3.90-5.20) Hemoglobin 9.4g/dL (12.0-15.6) Hematocrit 31.1% (35.0-46.0) Mean Corpuscular Volume 94.8fL (81-100) Mean Corpuscular Hemoglobin 28.7pg (27.0-35.0) Mean Corpuscular Hemoglobin Concent 30.2% (32.0-37.0) Red Cell Distribution Width 13.9% (12.3-15.4) Platelet Count 393bil/L (150-400) Neutrophils (%) (Auto) 52.4% (40-74) Lymphocytes (%) (Auto) 26.9% (14-46) Monocytes (%) (Auto) 9.1% (4-12) Eosinophils (%) (Auto) 10.6% (0-5) Basophils (%) (Auto) 0.8% (0-3) Sodium Level 141mEq/L (134-144) Potassium Level 4.3mEq/L (3.5-5.2) Chloride Level 104mEq/L (97-108) Carbon Dioxide Level 25mmol/L (18-29) Blood Urea Nitrogen 14mg/dL (8-27) Creatinine 0.54mg/dL (0.57-1.00) Estimat Glomerular Filtration Rate 161mL/min (>59) Glucose Level 126mg/dL (60-99) Calcium Level 8.6mg/dL (8.5-10.1) Magnesium Level 2.1mg/dL (1.6-2.6) Total Bilirubin 0.4mg/dL (0.0-1.2) Aspartate Amino Transf (AST/SGOT) 26U/L (0-50) Alanine Aminotransferase (ALT/SGPT) 28U/L (0-32) Alkaline Phosphatase 113U/L (25-165) Total Protein 6.0g/dL (6.4-8.4) Albumin 3.3g/dL (3.4-5.0) Procalcitonin 0.05ng/mL (0.00-0.08) Microbiology Results Item Value Date Time Urine Culture Received 11/22/162039 Urine,Random Pre-Plated Pending Discharge Medications Discharge Medications Amitriptyline (Amitriptyline) 10 Mg Tablet 30 MG PO HS (Reported) Aspirin (Aspirin) 325 Mg Tablet 325 MG PO HS (Reported) Bimatoprost (Lumigan) 45 Drop/2.5 Ml Ophsoln 1 DROP RIGHT_EYE HS (Reported) [place] Cit/Mag/D3/Zn/Cognos Consultant/Sunil/Bor (Citracal-Vit D + Magnesium Tab) 1 Each Tablet 1 EACH PO BID (Reported) Cholecalciferol (Vitamin D3) (Vitamin D) 1,000 Unit Capsule 5,000 UNIT PO DAILY (Reported) 5000IU DAILY IN WINTER; 2000IU DAILY IN SUMMER Cyanocobalamin/Cobamamide (Vitamin B-12 5,000 Mcg Tab Sl) 5,000 Mcg-100 Mcg Tab.subl 1 EACH SL DAILY (Reported) Cyclosporine (Restasis) 1 Each Droperette 1 DROP BOTH_EYES BID (Reported) O.O5% Docusate Sodium (Colace) 100 Mg Capsule 100-200 MG PO BID (Reported) Fentanyl 100 mcg/hr Patch (Fentanyl 100 mcg/hr Patch) 1 Each Patch.td72 1 PATCH TRANSDERM 48H (Reported) 37.5MCG/H Flaxseed Oil ([place]-3 Flaxseed Oil) 1,000 Mg Capsule 1,000 MG PO BID (Reported) Fluoxetine (Fluoxetine) 60 Mg Tablet 60 MG PO DAILY (Reported) Fluticasone Propionate (Fluticasone Propionate Nasal) 16 Gm [place].susp 2 SPRAY NS QAM (Reported) Gluc/Pablo-MSM#1/Vit C/Sunil/Bor (Kzujbcr-Eaqjl-TOX Complex Cplt) 1 Each Tablet 1 EACH PO BID (Reported) Lactobacillus Acidophilus (Probiotic) 1 Each Capsule 1 EACH PO BID (Reported) Lansoprazole (Lansoprazole) 30 Mg Capsule.dr 30 MG PO BID (Reported) Multivitamin (Multi Vitamin Daily) 1 Each Tablet 1 EACH PO DAILY (Reported) [place]-3 Fatty Acids/Fish Oil ([place] 3 Fish Oil Softgel) 1 Each Capsule.dr 1 EACH PO DAILY (Reported) Parsley/Garlic (Garlic & Parsley Tablet) 1 Each Tablet 1 EACH PO BID (Reported) Polyvinyl Alcohol/Povidone/Pf (Refresh Classic Eye Drops) 1 Each Droperette 1 EACH BOTH_EYES BID (Reported) Timolol Maleate (Timolol Maleate) 5 Ml Drops 1 DROP RIGHT_EYE QAM (Reported) Tizanidine (Tizanidine) 4 Mg Capsule 4-8 MG PO HS (Reported) As needed Acetaminophen (Acetaminophen) 500 Mg Tablet 1,000 MG PO Q6H PRN PRN For Pain ( Reported) Guaifenesin (Guaifenesin) 400 Mg Tablet 400 MG PO Q4H PRN PRN For Cough ( Reported) Loteprednol Etabonate (Lotemax) 5 Ml Drops.susp 1 GTT RIGHT_EYE BID PRN PRN POSTOP (Reported) Ondansetron (Zofran) 4 Mg Tablet 4-8 MG PO Q8H PRN PRN For Nausea (Reported) diphenhydrAMINE HCl (Benadryl) 25 Mg Capsule 25-50 MG PO Q4 PRN PRN For Itching (Reported) oxyCODONE (oxyCODONE) 5 Mg Tablet 5-10 MG PO Q4H PRN PRN For Pain (Reported) Followup Plan Disposition: home Discharge Diet: Low fat, Low Sodium Discharge Activity: Limited until seen by PCP Patient Instructions You were hospitalized due to left ureteric colic. Pain improved now. Repeat CT scan shows Small renal collecting system calculi unchanged from prior. No obstruction. Stent in place. No intervention required at this time per your urologist . Please follow-up with urologist tomorrow as scheduled. Please drink plenty of water. Follow-up Provider: Kei Mcfarlane MD Follow-up with PCP in: 2 weeks Provider: Yeni Parrish MD Follow-up in: 1 week (tomorrow as scheduled before ) copies to: Yeni Parrish MD; Kei Mcfarlane MD, Melaku MD Nov 24, 2016 12:37
[2016-12-02] MEDS ORDERED: NAPR220C11 PO (10:06)
== END 2016-11-24 11:30 | disposition home or self-care (01) ==
LOC: SED 15:51 → OSC 21:49
PROVIDERS: ADMIT Internal Medicine; ATTEND Internal Medicine
DX: N20.0 Calculus of kidney (principal); N23 Unspecified renal colic; H40.9 Unspecified glaucoma; I10 Essential (primary) hypertension; K21.9 Gastro-esophageal reflux disease without esophagitis; M79.7 Fibromyalgia; F11.20 Opioid dependence, uncomplicated; G47.33 Obstructive sleep apnea (adult) (pediatric); F41.9 Anxiety disorder, unspecified; F32.9 Major depressive disorder, single episode, unspecified; K58.9 Irritable bowel syndrome, unspecified; H26.9 Unspecified cataract; Z86.73 Personal history of transient ischemic attack (TIA), and cerebral infarction without residual deficits; Z87.440 Personal history of urinary (tract) infections; Z79.82 Long term (current) use of aspirin

== ENCOUNTER → 2016-12-04 | Day surgery (SDC) | payer MEDICARE, MEDICAID ==
[~2016-12-04] VITALS: Ht 147.3 cm; Wt 74.8 kg
[~2016-12-04] MED LIST changes: +Bupivacaine-MPF 0.25%/EPI 30 mL Inj INFILTRATE ONE; +CeFAZolin 2 Gm/50 mL D5W IV Premix IV SCH; +Dexamethasone 4 mg/mL Inj IVPUSH PRN; +EPHEDrine Sulfate 50 mg/mL Inj IVPUSH PRN; -GLUC-91 PO; +HYDROmorphone 1 mg/mL Inj IVPUSH PRN; +Lactated Ringer's 1,000 ML IV SCH; +Lactated Ringer's 500 ML IV PRN; -OMEG1CAP25 PO; +Ondansetron 2 mg/mL 2 mL Inj IVPUSH PRN; +Phenylephrine 10,000 mCg/mL Inj IVPUSH PRN; +fentaNYL-PF 50 mCg/mL 2 mL Inj IVPUSH PRN; +fentaNYL-PF 50 mCg/mL 2 mL Inj ONE; +oxyCODONE-Acetamin 5-325 mg Tablet PO PRN
[2016-12-04] MEDS: Lactated Ringer's 1,000 ML IV SCH ×3 (06:03→07:45)
[2016-12-04 06:06] VITALS: BP 134/82; PULSE 93; RESP 16; O2SAT 96
--- NOTE | 2016-12-04 07:32 | PCM.HPANE ---
Patient Data Date of Service: Dec 04, 2016 Surgeon Admitting Provider: Attending Provider:Julio Pizarro MD Primary Care Physician:Kei Mcfarlane MD Other Provider:Rufino Cameron Anesthesia Reason for Visit Right Middle Finger Trigger Finger Ht/WT & BMI Height (Feet): 4 Height (Inches): 10.00 Weight (Kilograms): 74.8 Body Mass Index 34.00 Allergies Coded Allergies: Macrolide Antibiotics (Verified Allergy, Severe, UNKNOWN, 12/02/16) TAPE (Verified Allergy, Severe, blisters (PAPER TAPE OK), 11/22/16) chlorhexidine (Unverified Allergy, Severe, Red welts on skin, 12/02/16) ENTERED FROM UNCODED ALLERGIES brimonidine (Unverified Allergy, Intermediate, eye swelling and rash around eyes, 12/02/16) ENTERED FROM UNCODED ALLERGIES miconazole (Unverified Allergy, Intermediate, burning and pain swallowing , 12/02/16) ENTERED FROM UNCODED ALLERGIES polymyxin B (Verified Allergy, Intermediate, causes eye irritaion, 12/02/16 ) cefdinir (Verified Adverse Reaction, Severe, YELLOW EYES, GREEN STOOL, 11/23) cisapride (Verified Adverse Reaction, Severe, SEVERE DIARRHEA, 11/23/16) erythromycin ethylsuccinate (Verified Adverse Reaction, Severe, cramping diarrhea, 11/22/16) gabapentin (Verified Adverse Reaction, Severe, ANXIETY/DEPRESSION, 11/22/16) metoclopramide (Verified Adverse Reaction, Severe, SEVERE TWITCHING, ) pregabalin (Verified Adverse Reaction, Severe, PERIPHERAL EDEMA, 11/22/16) propranolol (Verified Adverse Reaction, Severe, DIARRHEA, 11/22/16) tamsulosin (Verified Adverse Reaction, Severe, HYPOTENSION, 11/22/16) Uncoded Allergies: CHLOROPREP (Allergy, Severe, RED WELTS, 07/26/13) bee stings (Allergy, Unknown, UNKNOWN, 07/26/13) Past Anesthesia History Anesthesia History: Denies:: Abnormal Airway, Anesthesia Reactions, Difficult Intubation, Fam Anesthesia Reaction, Fam Malignant Hypertherm, Malignant Hyperthermia Diabetes History Hx Diabetes?: No MRSA MRSA: No Medications Blood Thinner: Aspirin Last Dose Blood Thinner: Nov 30, 2016 Home Meds Incl Beta Ac: No Reported Medications Naproxen Sodium (Aleve)220 Mg Jvedftl220 Mg PO 12/02/16 Cyanocobalamin/Cobamamide (Vitamin B-12 5,000 Mcg Tab Sl)5,000 Mcg-100 Mcg Tab.subl1 Each SL DAILY 11/08/16 Polyvinyl Alcohol/Povidone/Pf (Refresh Classic Eye Drops)1 Each Droperette1 Each BOTH_EYES BID 11/08/16 Aspirin 325 Mg Qxnkao770 Mg PO HS 11/08/16 Cholecalciferol (Vitamin D3) (Vitamin D)1,000 Unit Capsule5,000 Unit PO DAILY 5000IU DAILY IN WINTER; 2000IU DAILY IN SUMMER 07/25/16 Tizanidine 4 Mg Capsule4-8 Mg PO HS 07/25/16 Timolol Maleate 5 Ml Drops1 Drop RIGHT_EYE QAM 07/25/16 Cyclosporine (Restasis)1 Each Droperette1 Drop BOTH_EYES BID O.O5% 07/25/16 Lactobacillus Acidophilus (Probiotic)1 Each Capsule1 Each PO BID 07/25/16 oxyCODONE 5 Mg Tablet5-10 Mg PO Q4H PRN For Pain Ref 0 07/25/16 Ondansetron (Zofran)4 Mg Tablet4-8 Mg PO Q8H PRN For Nausea 07/25/16 Multivitamin (Multi Vitamin Daily)1 Each Tablet1 Each PO DAILY 30 Days Ref 0 07/25/16 Bimatoprost (Lumigan)45 Drop/2.5 Ml Ophsoln1 Drop RIGHT_EYE HS 07/25/16 Lansoprazole 30 Mg Capsule.dr30 Mg PO BID #30 CAPSULE Ref 0 07/25/16 Fluoxetine 60 Mg Aphkxx50 Mg PO DAILY Ref 0 07/25/16 Flaxseed Oil ([place]-3 Flaxseed Oil)1,000 Mg Capsule1,000 Mg PO BID 07/25/16 Fentanyl 100 mcg/hr Patch 1 Each Patch.td721 Patch TRANSDERM 48H Ref 0 37.5MCG/H 07/25/16 diphenhydrAMINE HCl (Benadryl)25 Mg Gohzmqk26-09 Mg PO Q4 PRN For Itching Ref 0 07/25/16 Docusate Sodium (Colace)100 Mg Yksebod182-191 Mg PO BID 07/25/16 Acetaminophen 500 Mg Tablet1,000 Mg PO Q6H PRN For Pain 07/25/16 Fluticasone Propionate (Fluticasone Propionate Nasal)16 Gm [place].susp2 [place] NS QAM #16 GM Ref 0 12/14/15 Parsley/Garlic (Garlic & Parsley Tablet)1 Each Tablet1 Each PO BID 07/26/13 [place] Cit/Mag/D3/Zn/Rehab Care Assistant/Sunil/Bor (Citracal-Vit D + Magnesium Tab)1 Each Tablet1 Each PO BID 07/26/13 Guaifenesin 400 Mg Wtzknb688 Mg PO Q4H PRN For Cough 07/26/13 Loteprednol Etabonate (Lotemax)5 Ml Drops.susp1 Gtt RIGHT_EYE BID PRN POSTOP 07/26/13 Amitriptyline 10 Mg Wwigbv53 Mg PO HS Ref 0 07/26/13 Discontinued Reported Medications Gluc/Pablo-MSM#1/Vit C/Sunil/Bor (Jtkzjsz-Tkced-ZQZ Complex Cplt)1 Each Tablet1 Each PO BID 07/25/16 [place]-3 Fatty Acids/Fish Oil ([place] 3 Fish Oil Softgel)1 Each Capsule.dr1 Each PO DAILY 07/26/13 History History of ENT Problems?: Yes HEENT History: Positive for:: Cataracts (S/P BILAT EXTRACTION & MACULAR "HOLE " RPR) Dysphagia (eats sitting up) Hearing Problem Sinus Problem (S/P LT NASAL SURGERY) Denies:: Abnormal Airway Difficult Intubation Denture Type: Full- Upper Partial- Upper Partial- Lower Teeth Condition: Within Normal Limits Hx of Heart Problems?: Yes Cardiovascular History: Positive for:: Chest Pain Irregular Heartbeat (PT REPORTS PALPITATIONS in setting of nephrolithiasis episode) Denies:: AICD Abdominal Aortic Aneurism Atrial Fibrillation Cardiac Surgery Congestive Heart Failure Coronary Artery Disease Edema Heart Murmur Hypertension Pacemaker Peripheral Vascular Rheumatic Fever Thrombophlebitis Valvular Heart Disease Hx of Respiratory Problem?: Yes Respiratory History: Positive for:: Use of C-PAP Machine (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) Denies:: Asthma COPD Chest Surgery Cough Dyspnea Emphysema Hemoptysis Pneumonia Pulmonary Embolism Tuberculosis Hx Neurologic Problems?: Yes Neurological History: Positive for:: TIA (2012 no residual or one since, ) Denies:: Alzheimer's Disease CVA Dementia Dizziness Headaches Parkinson's Disease Seizures Hx of GI Problems?: Yes Gastrointestinal History: Positive for:: Gastroesphageal Reflux (s/p lillian, sx improved) Other GI Pertinent History: has fatty cyst on liver, has appointment at Hx of Problems?: Yes Genitourinary History: Positive for:: Kidney Stones (admission Nov 2016) Denies:: HX of Hemodialysis Urinary Tract Infection HX of Peritoneal Dialysis: No Female Hx: Denies:: Currently Endometriosis Pelvic Inflammatory Problems with Breasts? Skin History: Denies:: History Skin Disorders? Pressure Ulcers Hx Musculoskeletal Problems?: Yes Musculoskeletal History: Positive for:: Back Injury (C/OF low BACK/NECK PAIN ) Osteoarthritis Denies:: Joint Replacement Musculoskeletal Trauma (neck sugery 2013, 2015, 2016) Hx of Psycho/Social Problems?: Yes Psycho Social History: Positive for:: Hx Depression (per pt " i get depress sometimes" duee to mobility issues) Denies:: Anxiety Bipolar Disorder Suicide Attempt Hx Surgeries?: Yes (States many, see chart list) Hx Any Other Health Problems?: Yes Other History: Positive for:: Hospitalization (Nov 2016 for kidney stone) Denies:: Cancer Endocrine Disease Thyroid Disease History Blood Transfusions: Positive for:: Accept Blood Products? Blood Transfusions (was in 1983) Denies:: Blood Transfuse Reaction Hx Diabetes: No Hx Alcohol Use: NoHx Substance Use: No Smoking Status: Never Smoker Have You Smoked inLast 12 mo: No Stop/Bang Treated for Sleep Apnea?: No Do You Have a CPAP Machine?: No S-Snoring: Do You Snore Loudly: Yes T-Tired: feel tired, fatigued: Yes O-Obsered: Observed not breath: No P-Blood Pressure: treated: Yes B- Body Mass Index > 35 kg/m2: Yes A- Age over 50: Yes JIMMIE Risk Assessment: High Risk, =/>3 Yes Risk Assessment Category Category 1A: Patient has history of documented sleep apnea, and HAS NOT received any narcotic, sedative or anesthesia administration during this stay. Category 1B: Patient has history of documented sleep apnea, and HAS received any narcotic , sedative or anesthesia administration during this stay Category 2: Patient has SUSPECTED Obstructive Sleep Apnea, and HAS received any narcotic , sedative or anesthesia administration during this stay. Category 3: Patient has SUSPECTED Obstructive Sleep Apnea and HAS NOT received narcotic, sedative or anesthesia administration during this stay. Category 4: Outpatient in Procedural Areas with known sleep apnea or who screen positive for High Risk via the STOP/BANG questionnaire. Exam Exam Vital Signs Vital Signs Date Time Temp Pulse Resp B/P Pulse Ox O2 Delivery O2 Flow Rate FiO2 12/04/16 06:06 36.6 93 16 134/82 96 Room Air General Appearance: Alert HEENT/AIRWAY: MP 2 Lungs: Clear to Auscultation, Normal Air Movement Heart: Exam Unremarkable, Regular Rate/Rhythm, No Murmurs/Rubs/Gallops Meds/Labs/Diagnostics Admission Meds Current Medications Lactated Ringer's (Lr) 1,000 ml @ 120 mls/hr Q8H20M IV Last administered on t 06:04; Start 12/04/16 at 05:00; Stop 12/04/16 at 13:19 Plan Impression Patient chart reviewed, patient interviewed and anesthestic plan with risks, benefits, and alternatives discussed, and informed consent obtained. NPO per Anesth. Guidelines: Yes ASA Physical Status: ASA2 Mod Systemic Disease Anesthetic Plan: MAC Bene/Risks/Altern/Consents: Yes HP Complete Prior to Induction: Yes Rahul Baker MD Dec 04, 2016 07:32
[2016-12-04 08:33] VITALS: BP 113/56; PULSE 80; RESP 16; O2SAT 98
[2016-12-04 08:46] VITALS: BP 127/56; PULSE 79; RESP 16
--- NOTE | 2016-12-04 10:17 | PCM.ANEP1 ---
Post Anesthesia PACU Phase 1 Assessment Vital Signs Vital Signs Date Time Temp Pulse Resp B/P Pulse Ox O2 Delivery O2 Flow Rate FiO2 12/04/16 08:46 79 16 127/56 Room Air 12/04/16 08:33 36.6 80 16 113/56 98 Room Air 12/04/16 06:06 36.6 93 16 134/82 96 Room Air Anesthetic Administered: MAC Level of Alertness: Awake, talking LAIRD's with Equal Strength: Yes Pain: No Nausea or Vomiting: No CV Function & Hydration Stable: Yes Airway Device: Oxygen Delivery: Room Air Lungs: Clear to Auscultation, Normal Air Movement Dermatome Level: Full Sensation PACU Phase 2 Assessment Complications: No Follow up Care: No Patient Instructions Provided: N/A Rahul Baker MD Dec 04, 2016 10:17
--- NOTE | 2016-12-05 11:08 | OP ---
[address] [address] OPERATIVE REPORT PATIENT: RICK VAZQUEZ : 1950 MR#: [id number] ADMIT: 12/04/2016 JOB ID: [id number] DATE OF SURGERY: 12/04/2016 PREOPERATIVE DIAGNOSIS(ES): 1. Right recurrent trigger finger. 2. Right middle finger pain. POSTOPERATIVE DIAGNOSIS(ES): 1. Right recurrent trigger finger likely due to scarring. 2. Right palmar fasciitis. PROCEDURES: 1. Right middle finger exploration with revision trigger finger release with excision of scar tissue as well as the rent in the flexor superficialis tendon. 2. Excision of right middle finger palmar fascia. SURGEON: Julio Pizarro M.D. LAUNDRY TECHNICIAN: None. ANESTHESIA: MAC with local. COMPLICATIONS: None apparent. SPECIMEN: Right palmar fascia to Pathology. ESTIMATED BLOOD LOSS: Minimal. COMPLICATION: None apparent. INDICATIONS FOR PROCEDURE: This is a 66-year-old female patient with recurrent right middle trigger finger. I took the patient to the operating room in July 2016 for release. The patient had done well after the surgery until approximately 10 weeks postop. The patient reports that she felt a pop. The patient reports that she developed significant palmar pain as well as recurrent crepitus of the middle finger with range of motion. The patient has been refractory to steroid injection. At this point, exploration of the area is indicated. PROCEDURES AND FINDINGS: The patient was identified in the preoperative area. Surgical site was marked. It was noted that patient has a palmar nodule along the middle finger ray in the mid palm consistent with either early Dupuytren disease or fascitis. The patient was then taken back to the operating room and placed supine on the operating table. Appropriate time-outs were taken. MAC was induced smoothly. The patient was then prepped and draped in the usual sterile manner. Local anesthesia was then infiltrated to the surgical site consisting of 1% lidocaine and 0.25% Marcaine. The patient's right upper extremity was then exsanguinated and tourniquet inflated to 250 mmHg. The patient's previous incision was then opened. It was located just proximal to the palmar digital crease centered over the middle finger ray extending to the ulnar edge of the index finger and radial edge of the ring finger. This was done with a 15 blade. I then next deepened the incision bluntly down to the flexor apparatus. It was noted there was some inflammation and scarring. Specifically there is some tenosynovium between the flexor digitorum superficialis tendon and the flexor digitorum profundus tendon. It was noted that the cut edge of the A1 chuckie also had scar tissue that extended onto the flexor apparatus. The FDS and FDP were then inspected visually and scar tissue was excised sharply off of the tendon with a pair of scissors. It was noted that the radial slip of the FDS has a rent in the tendon involving approximately one quarter of it. I left this rent in place initially. I then traced the tendon down into the mid palm. Any scar tissue was excised. At this point, I elected to address the palmar fascia. This may be contributing to her pain. Incision was then made directly over the palmar nodules in a zigzag fashion. The incision was made with a 15 blade down just through the skin. The skin was then peeled off of the underlying superficial palmar fascia. The palmar fascia was then excised in its entirety over the middle finger ray over the proximal and mid palm. This was passed off to Pathology as a specimen. At this point, tourniquet was released and hemostasis was obtained with electrocautery. MAC was lightened. The patient was asked to flex the middle finger. The patient continued to have some crepitus in this area to palpation. At this point, I decided to excise a small strip of FPS by the rent. Once this has been done, the patient's range of motion became smooth without any more crepitus. I asked the patient to flex and extend her finger fully several more times and then the excursion appeared to be quite smooth. The incisions were then reapproximated using 4-0 nylon horizontal mattress sutures. The patient tolerated the procedure well. Needle count, sponge count, instrument counts were correct at the end of the procedure. The patient was then transported to recovery in stable condition.
== END | disposition home or self-care (01) ==
LOC: SAS 05:36
PROVIDERS: ATTEND Plastic Surgery
DX: M72.8 Other fibroblastic disorders (principal); M65.331 Trigger finger, right middle finger; K21.9 Gastro-esophageal reflux disease without esophagitis; M19.90 Unspecified osteoarthritis, unspecified site; M79.7 Fibromyalgia; F32.9 Major depressive disorder, single episode, unspecified; M47.812 Spondylosis without myelopathy or radiculopathy, cervical region; G47.33 Obstructive sleep apnea (adult) (pediatric); G89.29 Other chronic pain; Z87.440 Personal history of urinary (tract) infections; Z98.84 Bariatric surgery status; Z86.69 Personal history of other diseases of the nervous system and sense organs; Z87.442 Personal history of urinary calculi; Z79.82 Long term (current) use of aspirin; Z86.73 Personal history of transient ischemic attack (TIA), and cerebral infarction without residual deficits
CPT/HCPCS: 26123; 88305; 99495; J3010; J7120